=== PATIENT | female | born 1955 | race Caucasian/White ===

== ENCOUNTER 2016-10-16 02:04 | Emergency (ER) | payer MEDICARE, MEDICAID ==
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
[2016-10-16 02:49] LABS: ABSOLUTE EOSINOPHILS # (AUTO) 0.2 10^3/uL (0.0-0.6); ABSOLUTE LYMPHOCYTES (AUTO) 2.7 10^3/uL (0.5-4.7); ABSOLUTE MONOCYTES (AUTO) 0.6 10^3/uL (0.1-1.4); ABSOLUTE NEUT (AUTO) 5.2 10^3/uL (1.7-8.2); BASOPHILS % (AUTO) 0.5 % (0-2); EOSINOPHILS % (AUTO) 2.2 % (0-6); HEMATOCRIT 32.9 % (36.0-47.0); HEMOGLOBIN 11.3 g/dL (12.0-15.5); LYMPHOCYTES % (AUTO) 31.1 % (13-45); MEAN CORPUSCULAR HEMOGLOBIN 29.5 pg (27.0-33.4); MEAN CORPUSCULAR HGB CONC 34.2 g/dL (32.0-36.0); MEAN CORPUSCULAR VOLUME 86 fl (80-97); MONOCYTES % (AUTO) 6.8 % (3-13); RED BLOOD COUNT 3.83 10^6/uL (3.72-5.28); RED CELL DISTRIBUTION WIDTH 14.1 % (11.5-14.0); SEGMENTED NEUTROPHILS % (AUTO) 59.4 % (42-78); WHITE BLOOD COUNT 8.8 10^3/uL (4.0-10.5)
[2016-10-16 03:03] LABS: ALANINE AMINOTRANSFERASE 41 U/L (9-52); ALBUMIN 3.6 g/dL (3.5-5.0); ALKALINE PHOSPHATASE 82 U/L (38-126); ANION GAP 13 (5-19); ASPARTATE AMINO TRANSFERASE 43 U/L (14-36); BILIRUBIN,TOTAL 0.3 mg/dL (0.2-1.3); BLOOD UREA NITROGEN 12 mg/dL (7-20); CALCIUM 9.1 mg/dL (8.4-10.2); CARBON DIOXIDE 27 mmol/L (22-30); CHLORIDE 101 mmol/L (98-107); CREATININE RESULT 1.16 mg/dL (0.52-1.25); GLUCOSE 90 mg/dL (75-110); POTASSIUM 4.1 mmol/L (3.6-5.0); SODIUM 140.7 mmol/L (137-145); TOTAL PROTEIN 6.4 g/dL (6.3-8.2)
[2016-10-16 03:15] LABS: APPEARANCE,URINE CLEAR; BILIRUBIN,URINE NEGATIVE (NEGATIVE); GLUCOSE, URINE NEGATIVE (NEGATIVE); KETONES,URINE NEGATIVE (NEGATIVE); LEUKOCYTE ESTERASE,URINE NEGATIVE (NEGATIVE); NITRITE,URINE NEGATIVE (NEGATIVE); PROTEIN,URINE NEGATIVE (NEGATIVE); URINE SPECIFIC GRAVITY 1.006; UROBILINOGEN,URINE NEGATIVE mg/dL (<2.0)
[2016-10-16 03:20] LABS: ALCOHOL < 10 mg/dL (NONE DETECTED)
[2016-10-16 03:22] LABS: URINE BARBITURATES SCREEN NEGATIVE; URINE METHADONE SCREEN NEGATIVE; URINE PHENCYCLIDINE SCREEN NEGATIVE
[2016-10-16] MEDS ORDERED: HALOPERIDOL LACTATE INJ 5 MG/1 ML VIAL IM ONE (10:06)
--- NOTE | 2016-10-16 10:06 | ER Document Report ---
Doctor's Note Notes: 10/16/16 10:04 Rounds: Chart reviewed and patient interviewed. Patient is being evaluated for confusion and apparent hallucinations. Patient says she is a patient at [facility] and last went there a couple weeks ago. Not sure of she's been taking her mental health medications. Patient is anxious, hyper, flight of ideas. Patient is being started on Haldol, initially 10 mg IM. Vital signs are all normal. Lab studies were all normal. She is medically stable for transfer or discharge. Dany Kelley M.D.
[2016-10-16] MEDS ORDERED: BENZTROPINE MESYLATE 1 MG TABLET PO SCH (10:15)
--- NOTE | 2016-10-16 13:41 | EKG REPORT ---
SEVERITY:- BORDERLINE ECG - SINUS RHYTHM BORDERLINE T ABNORMALITIES, INFERIOR LEADS : Confirmed by: Natividad Yusuf MD 16-Oct-2016 13:40:54
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
[2016-10-16 17:01] VITALS: BP 108/59
== END 2016-10-16 17:50 | disposition short-term general hospital (02) ==
LOC: ER 02:04
DX: R41.0 Disorientation, unspecified (principal); R44.3 Hallucinations, unspecified; E78.00 Pure hypercholesterolemia, unspecified; I10 Essential (primary) hypertension; E11.9 Type 2 diabetes mellitus without complications; Z90.49 Acquired absence of other specified parts of digestive tract; Z90.710 Acquired absence of both cervix and uterus
CPT/HCPCS: 93005; 99285; 96372; 36415; 80307 ×4; 85025; 80053; 81001; 70450; 93010; A9270; J1630

== ENCOUNTER 2016-10-27 08:09 | Emergency (ER) | payer MEDICARE, MEDICAID ==
[2016-10-27 10:01] LABS: ABSOLUTE LYMPHOCYTES (AUTO) 2.2 10^3/uL (0.5-4.7); ABSOLUTE MONOCYTES (AUTO) 0.7 10^3/uL (0.1-1.4); ABSOLUTE NEUT (AUTO) 6.7 10^3/uL (1.7-8.2); BASOPHILS % (AUTO) 0.4 % (0-2); HEMOGLOBIN 13.4 g/dL (12.0-15.5); HGB HCT DIFFERENCE 0.2; LYMPHOCYTES % (AUTO) 23.2 % (13-45); MEAN CORPUSCULAR HEMOGLOBIN 28.9 pg (27.0-33.4); MEAN CORPUSCULAR HGB CONC 33.5 g/dL (32.0-36.0); MEAN CORPUSCULAR VOLUME 86 fl (80-97); RED BLOOD COUNT 4.63 10^6/uL (3.72-5.28); RED CELL DISTRIBUTION WIDTH 14.1 % (11.5-14.0); SEGMENTED NEUTROPHILS % (AUTO) 69.4 % (42-78); WHITE BLOOD COUNT 9.6 10^3/uL (4.0-10.5)
[2016-10-27 10:12] LABS: APPEARANCE,URINE SLIGHTLY-CLOUDY; BILIRUBIN,URINE NEGATIVE (NEGATIVE); GLUCOSE, URINE NEGATIVE (NEGATIVE); KETONES,URINE NEGATIVE (NEGATIVE); LEUKOCYTE ESTERASE,URINE MODERATE (NEGATIVE); NITRITE,URINE NEGATIVE (NEGATIVE); PROTEIN,URINE NEGATIVE (NEGATIVE); URINE SPECIFIC GRAVITY 1.016; UROBILINOGEN,URINE NEGATIVE mg/dL (<2.0)
[2016-10-27 10:17] LABS: ALANINE AMINOTRANSFERASE 11 U/L (9-52); ALBUMIN 4.2 g/dL (3.5-5.0); ALKALINE PHOSPHATASE 83 U/L (38-126); ANION GAP 13 (5-19); ASPARTATE AMINO TRANSFERASE 14 U/L (14-36); BLOOD UREA NITROGEN 14 mg/dL (7-20); CALCIUM 10.2 mg/dL (8.4-10.2); CARBON DIOXIDE 26 mmol/L (22-30); CHLORIDE 99 mmol/L (98-107); CREATININE RESULT 0.78 mg/dL (0.52-1.25); GLUCOSE 117 mg/dL (75-110); POTASSIUM 3.8 mmol/L (3.6-5.0); SODIUM 138.4 mmol/L (137-145); TOTAL PROTEIN 7.3 g/dL (6.3-8.2)
[2016-10-27] MEDS ORDERED: ONDANSETRON HCL INJ/PF 4 MG/2 ML SDV IV ONE (10:17)
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
[2016-10-27] MEDS: NORMAL SALINE 1000 ML 1,000 ML IV PRN ×2 (10:23→11:23)
[2016-10-27] MEDS ORDERED: LOPERAMIDE HCL 2 MG CAPSULE PO ONE (10:32)
[2016-10-27] MEDS ORDERED: HYDROCODONE/ACETAMINOPHEN 5-325 MG 6 TAB/DSPK PO PRN (14:45)
[2016-10-27] MEDS ORDERED: ONDANSETRON ODT 4 MG TAB (6 TAB/DSPK) PO PRN (14:45)
[2016-10-27 15:07] VITALS: BP 139/86
== END 2016-10-27 15:06 | disposition home or self-care (01) ==
LOC: ER 08:09
DX: R11.2 Nausea with vomiting, unspecified (principal); R19.7 Diarrhea, unspecified; R10.33 Periumbilical pain; E11.9 Type 2 diabetes mellitus without complications; I10 Essential (primary) hypertension; Z87.19 Personal history of other diseases of the digestive system; Z88.5 Allergy status to narcotic agent; Z88.1 Allergy status to other antibiotic agents; Z88.8 Allergy status to other drugs, medicaments and biological substances; Z90.49 Acquired absence of other specified parts of digestive tract
CPT/HCPCS: 99284; 96361; 96374; 36415; 83690; 85025; 80053; 81001; A9270 ×3; J2405; J7030

== ENCOUNTER 2016-11-10 12:42 | Inpatient (IN) | payer MEDICARE, MEDICAID ==
[2016-11-10] MEDS ORDERED: NALOXONE HCL INJ/PF 0.4 MG/1 ML SDV ONE (13:05)
[2016-11-10 13:14] LABS: ABSOLUTE EOSINOPHILS # (AUTO) 0.1 10^3/uL (0.0-0.6); ABSOLUTE LYMPHOCYTES (AUTO) 3.1 10^3/uL (0.5-4.7); ABSOLUTE MONOCYTES (AUTO) 0.4 10^3/uL (0.1-1.4); BASOPHILS % (AUTO) 0.4 % (0-2); EOSINOPHILS % (AUTO) 2.2 % (0-6); HEMATOCRIT 37.2 % (36.0-47.0); HEMOGLOBIN 12.7 g/dL (12.0-15.5); HGB HCT DIFFERENCE 0.9; MEAN CORPUSCULAR VOLUME 88 fl (80-97); MONOCYTES % (AUTO) 6.2 % (3-13); RED BLOOD COUNT 4.22 10^6/uL (3.72-5.28); RED CELL DISTRIBUTION WIDTH 14.5 % (11.5-14.0); SEGMENTED NEUTROPHILS % (AUTO) 45.2 % (42-78); WHITE BLOOD COUNT 6.7 10^3/uL (4.0-10.5)
[2016-11-10] MEDS ORDERED: NALOXONE HCL INJ 2 MG/2 ML DISP.SYRIN ONE (13:17)
[2016-11-10 13:30] LABS: ALANINE AMINOTRANSFERASE 27 U/L (9-52); ALBUMIN 3.4 g/dL (3.5-5.0); ALKALINE PHOSPHATASE 90 U/L (38-126); ANION GAP 7 (5-19); ASPARTATE AMINO TRANSFERASE 18 U/L (14-36); BILIRUBIN,TOTAL 0.4 mg/dL (0.2-1.3); BLOOD UREA NITROGEN 8 mg/dL (7-20); CALCIUM 9.1 mg/dL (8.4-10.2); CARBON DIOXIDE 31 mmol/L (22-30); CHLORIDE 100 mmol/L (98-107); CREATININE RESULT 0.94 mg/dL (0.52-1.25); GLUCOSE 106 mg/dL (75-110); POTASSIUM 4.4 mmol/L (3.6-5.0); SODIUM 138.3 mmol/L (137-145); TOTAL PROTEIN 6.4 g/dL (6.3-8.2)
[2016-11-10 13:31] LABS: APPEARANCE,URINE CLEAR; BILIRUBIN,URINE NEGATIVE (NEGATIVE); GLUCOSE, URINE NEGATIVE (NEGATIVE); KETONES,URINE NEGATIVE (NEGATIVE); LEUKOCYTE ESTERASE,URINE NEGATIVE (NEGATIVE); NITRITE,URINE NEGATIVE (NEGATIVE); PROTEIN,URINE NEGATIVE (NEGATIVE); URINE SPECIFIC GRAVITY 1.008; UROBILINOGEN,URINE NEGATIVE mg/dL (<2.0)
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
[2016-11-10 13:50] LABS: URINE BARBITURATES SCREEN NEGATIVE; URINE METHADONE SCREEN NEGATIVE; URINE OPIATES LOW UNCONFIRMED POSITIVE; URINE PHENCYCLIDINE SCREEN NEGATIVE
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
[2016-11-10] MEDS ORDERED: 1/2 NORMAL SALINE 1,000 ML IV PRN (18:09)
[2016-11-10] MEDS ORDERED: DEXTROSE 40% GEL 15 GM TUBE PO PRN ×2 (18:19)
[2016-11-10] MEDS ORDERED: DEXTROSE 50%-WATER 25 GM/50 ML DISP.SYRIN IV PRN ×2 (18:19)
[2016-11-10] MEDS ORDERED: INSULIN REG, HUMAN 100 UNIT/ML 3 ML VIAL (PYX) SUBCUT PRN (18:19)
[2016-11-10] MEDS ORDERED: GLUCAGON,HUMAN RECOMB 1 MG INJ IM PRN (18:19)
[2016-11-10] MEDS ORDERED: FAMOTIDINE INJ/PF 20 MG/2 ML SDV IV SCH (22:00)
[2016-11-10] MEDS ORDERED: LEVETIRACETAM 1000 MG/NACL-ISO 1,000 MG/100 ML RTUPB IV SCH (22:00)
[2016-11-11 01:48] VITALS: BP 109/58
[2016-11-11] MEDS ORDERED: ENOXAPARIN SODIUM INJ 40 MG/0.4 ML DISP.SYRIN SUBCUT SCH (08:00)
--- NOTE | 2016-11-11 08:14 | EKG REPORT ---
SEVERITY:- NORMAL ECG - SINUS RHYTHM : Confirmed by: Johnathon Smith MD 11-Nov-2016 08:13:30
--- NOTE | 2017-01-06 06:23 | HX & PHYSICAL/DISCHG SUMMARY E ---
History and Physical/Discharge Summary NAME: TOÑITO KUMAR : 1955 AGE: 61Y ADMITTED: 11/10/2016 DISCHARGED: 11/11/2016 HISTORY: She came in on November 10 and left AMA early on November 11, before I could see her, when she woke up from altered mental status, presumably from an overdose of a pain medicine. Since I did not see her, I cannot give a complete note. Please refer to the Emergency Room note for details. DICTATING PHYSICIAN: ARTURO YOUSIF M.D. [id number] PHY#: [id number] ID: [id number] JOB#: [id number] ACCT: [id number] cc:ARTURO YOUSIF M.D. >
== END 2016-11-11 03:00 | disposition left against medical advice (07) | DRG 918 ==
LOC: ER 12:42 → EH 16:18 → UNDOADMIN 16:18 → EH 18:09
PROVIDERS: ADMIT Emergency Medicine; ATTEND Emergency Medicine
DX: T50.901A Poisoning by unspecified drugs, medicaments and biological substances, accidental (unintentional), initial encounter (principal); Y92.199 Unspecified place in other specified residential institution as the place of occurrence of the external cause; I10 Essential (primary) hypertension; E78.00 Pure hypercholesterolemia, unspecified; E11.9 Type 2 diabetes mellitus without complications; K21.9 Gastro-esophageal reflux disease without esophagitis; Z62.810 Personal history of physical and sexual abuse in childhood; F43.10 Post-traumatic stress disorder, unspecified; Z88.8 Allergy status to other drugs, medicaments and biological substances; Z82.49 Family history of ischemic heart disease and other diseases of the circulatory system; Z80.9 Family history of malignant neoplasm, unspecified; Z90.49 Acquired absence of other specified parts of digestive tract
CPT/HCPCS: 36415; 70450; 80053; 80307; 81001; 82962; 83605; 84484; 85025; 93005; 93010; 96374; 99291; J1953; J2310; J3490; S0028

== ENCOUNTER 2016-11-22 14:21 | Emergency (ER) | payer MEDICARE, MEDICAID ==
[2016-11-22] MEDS ORDERED: NAPROXEN 250 MG TABLET PO ONE (14:53)
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
[2016-11-22 17:55] VITALS: BP 138/72
== END 2016-11-22 17:47 | disposition home or self-care (01) ==
LOC: ER 14:21
DX: S73.102A Unspecified sprain of left hip, initial encounter (principal); M54.5 Low back pain; M25.552 Pain in left hip; W01.0XXA Fall on same level from slipping, tripping and stumbling without subsequent striking against object, initial encounter; I10 Essential (primary) hypertension; E11.9 Type 2 diabetes mellitus without complications; F17.200 Nicotine dependence, unspecified, uncomplicated
CPT/HCPCS: 99283; 73502; 72110; A9270

== ENCOUNTER 2016-12-01 20:42 | Emergency (ER) | payer MEDICARE, MEDICAID ==
[2016-12-01] MEDS ORDERED: NORMAL SALINE 1000 ML 1,000 ML IV ONE (21:41)
[2016-12-01] MEDS ORDERED: MORPHINE SULFATE 10 MG/ML INJ IV ONE ×2 (21:41→23:12)
[2016-12-01] MEDS ORDERED: ONDANSETRON HCL INJ/PF 4 MG/2 ML SDV IV ONE (21:41)
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
[2016-12-01 22:35] LABS: ALANINE AMINOTRANSFERASE 14 U/L (9-52); ALBUMIN 4.5 g/dL (3.5-5.0); ALKALINE PHOSPHATASE 97 U/L (38-126); ANION GAP 12 (5-19); ASPARTATE AMINO TRANSFERASE 14 U/L (14-36); BILIRUBIN,TOTAL 0.8 mg/dL (0.2-1.3); BLOOD UREA NITROGEN 5 mg/dL (7-20); CALCIUM 10.2 mg/dL (8.4-10.2); CARBON DIOXIDE 29 mmol/L (22-30); CHLORIDE 94 mmol/L (98-107); CREATININE RESULT 0.72 mg/dL (0.52-1.25); GLUCOSE 108 mg/dL (75-110); LIPASE 19.3 U/L (23-300); POTASSIUM 3.6 mmol/L (3.6-5.0); TOTAL PROTEIN 7.3 g/dL (6.3-8.2)
[2016-12-01 23:00] LABS: APPEARANCE,URINE CLEAR; BILIRUBIN,URINE NEGATIVE (NEGATIVE); GLUCOSE, URINE NEGATIVE (NEGATIVE); KETONES,URINE NEGATIVE (NEGATIVE); LEUKOCYTE ESTERASE,URINE NEGATIVE (NEGATIVE); NITRITE,URINE NEGATIVE (NEGATIVE); PROTEIN,URINE NEGATIVE (NEGATIVE); URINE SPECIFIC GRAVITY 1.002; UROBILINOGEN,URINE NEGATIVE mg/dL (<2.0)
[2016-12-01 23:43] LABS: ABSOLUTE MONOCYTES (AUTO) 0.7 10^3/uL (0.1-1.4); EOSINOPHILS % (AUTO) 0.3 % (0-6)
[2016-12-01 23:52] LABS: ABSOLUTE LYMPHOCYTES (AUTO) 3.6 10^3/uL (0.5-4.7); ABSOLUTE NEUT (AUTO) 5.6 10^3/uL (1.7-8.2); BASOPHILS % (AUTO) 0.3 % (0-2); HEMATOCRIT 37.7 % (36.0-47.0); HEMOGLOBIN 13.2 g/dL (12.0-15.5); HGB HCT DIFFERENCE 1.9; MEAN CORPUSCULAR HEMOGLOBIN 29.5 pg (27.0-33.4); MONOCYTES % (AUTO) 7.1 % (3-13); RED BLOOD COUNT 4.48 10^6/uL (3.72-5.28); RED CELL DISTRIBUTION WIDTH 13.8 % (11.5-14.0); SEGMENTED NEUTROPHILS % (AUTO) 56.3 % (42-78); WHITE BLOOD COUNT 9.9 10^3/uL (4.0-10.5)
[2016-12-01 23:53] LABS: MEAN CORPUSCULAR VOLUME 84 fl (80-97)
[2016-12-02] MEDS ORDERED: HYDROMORPHONE HCL INJ/PF 2 MG/ML AMPULE IV ONE (01:16)
[2016-12-02 02:05] VITALS: BP 177/90
[2016-12-02] MEDS ORDERED: HYDROCODONE/ACETAMINOPHEN 5-325 MG 6 TAB/DSPK PO PRN (02:32)
== END 2016-12-02 02:44 | disposition home or self-care (01) ==
LOC: ER 20:42
DX: R10.84 Generalized abdominal pain (principal); R10.9 Unspecified abdominal pain; R11.0 Nausea; E11.9 Type 2 diabetes mellitus without complications; I10 Essential (primary) hypertension; Z90.49 Acquired absence of other specified parts of digestive tract; Z98.890 Other specified postprocedural states; Z88.5 Allergy status to narcotic agent; Z88.1 Allergy status to other antibiotic agents; Z88.8 Allergy status to other drugs, medicaments and biological substances; Z87.19 Personal history of other diseases of the digestive system; Z90.710 Acquired absence of both cervix and uterus
CPT/HCPCS: 96376; 99284; 96361; 96374; 96375; 36415; 83690; 85025; 80053; 81001; 74177; J2270; J1170; J2405; J7030; A9270

== ENCOUNTER 2017-01-01 23:49 | Emergency (ER) | payer MEDICARE, OTHER ==
[2017-01-02 00:41] LABS: ABSOLUTE EOSINOPHILS # (AUTO) 0.1 10^3/uL (0.0-0.6); ABSOLUTE LYMPHOCYTES (AUTO) 2.5 10^3/uL (0.5-4.7); ABSOLUTE MONOCYTES (AUTO) 0.7 10^3/uL (0.1-1.4); ABSOLUTE NEUT (AUTO) 11.8 10^3/uL (1.7-8.2); BASOPHILS % (AUTO) 0.3 % (0-2); EOSINOPHILS % (AUTO) 0.5 % (0-6); HEMATOCRIT 36.6 % (36.0-47.0); HEMOGLOBIN 12.4 g/dL (12.0-15.5); HGB HCT DIFFERENCE 0.6; LYMPHOCYTES % (AUTO) 16.7 % (13-45); MEAN CORPUSCULAR HEMOGLOBIN 29.3 pg (27.0-33.4); MEAN CORPUSCULAR VOLUME 86 fl (80-97); MONOCYTES % (AUTO) 4.5 % (3-13); RED BLOOD COUNT 4.24 10^6/uL (3.72-5.28); RED CELL DISTRIBUTION WIDTH 14.3 % (11.5-14.0); WHITE BLOOD COUNT 15.2 10^3/uL (4.0-10.5)
[2017-01-02] MEDS ORDERED: NALOXONE HCL INJ 2 MG/2 ML DISP.SYRIN ONE (00:50)
[2017-01-02 01:01] LABS: ALANINE AMINOTRANSFERASE 27 U/L (9-52); ALBUMIN 3.8 g/dL (3.5-5.0); ALKALINE PHOSPHATASE 99 U/L (38-126); ANION GAP 14 (5-19); ASPARTATE AMINO TRANSFERASE 38 U/L (14-36); BILIRUBIN,DIRECT 0.3 mg/dL (0.0-0.4); BILIRUBIN,TOTAL 1.6 mg/dL (0.2-1.3); BLOOD UREA NITROGEN 22 mg/dL (7-20); CALCIUM 9.2 mg/dL (8.4-10.2); CARBON DIOXIDE 24 mmol/L (22-30); CHLORIDE 97 mmol/L (98-107); CREATININE RESULT 1.64 mg/dL (0.52-1.25); GLUCOSE 101 mg/dL (75-110); POTASSIUM 4.6 mmol/L (3.6-5.0); SODIUM 134.6 mmol/L (137-145); TOTAL PROTEIN 6.7 g/dL (6.3-8.2)
[2017-01-02 01:02] LABS: ALCOHOL < 10 mg/dL (NONE DETECTED)
[2017-01-02 01:05] LABS: APPEARANCE,URINE CLEAR; BILIRUBIN,URINE NEGATIVE (NEGATIVE); GLUCOSE, URINE NEGATIVE (NEGATIVE); KETONES,URINE NEGATIVE (NEGATIVE); LEUKOCYTE ESTERASE,URINE NEGATIVE (NEGATIVE); NITRITE,URINE NEGATIVE (NEGATIVE); PROTEIN,URINE NEGATIVE (NEGATIVE); URINE SPECIFIC GRAVITY 1.004; UROBILINOGEN,URINE NEGATIVE mg/dL (<2.0)
[2017-01-02 01:18] LABS: URINE BARBITURATES SCREEN NEGATIVE; URINE METHADONE SCREEN NEGATIVE; URINE OPIATES LOW UNCONFIRMED POSITIVE; URINE PHENCYCLIDINE SCREEN NEGATIVE
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
--- NOTE | 2017-01-02 08:16 | EKG REPORT ---
SEVERITY:- NORMAL ECG - SINUS RHYTHM : Confirmed by: Norris Hooker 02-Jan-2017 08:15:23
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
--- NOTE | 2017-01-02 10:14 | ER Document Report ---
Doctor's Note Notes: 01/02/17 10:14 Rounds: Chart reviewed and patient interviewed. Vital signs are normal. Lab studies were all essentially unremarkable except for her white count of 15,200. That does not appear to be of any clinical significance as the patient has no signs or symptoms of infection. Her urinalysis is negative. Drug screen was positive for opiates. Patient appears to be medically stable for transfer or discharge. Mental health has assessed the patient feels she can be discharged for follow-up at her usual mental health provider, [facility]. Dany Kelley M.D.
[2017-01-02 10:22] VITALS: BP 107/45
== END 2017-01-02 10:52 | disposition home or self-care (01) ==
LOC: ER 23:49
DX: F31.9 Bipolar disorder, unspecified (principal); M54.9 Dorsalgia, unspecified; G89.29 Other chronic pain; E11.9 Type 2 diabetes mellitus without complications; I10 Essential (primary) hypertension; Z79.891 Long term (current) use of opiate analgesic; Z79.899 Other long term (current) drug therapy; Z88.8 Allergy status to other drugs, medicaments and biological substances; Z88.5 Allergy status to narcotic agent; Z88.1 Allergy status to other antibiotic agents
CPT/HCPCS: 36415; 80053; 80307; 81001; 84703; 85025; 93005; 93010; 99285

== ENCOUNTER 2017-01-21 15:19 | Emergency (ER) | payer MEDICARE, MEDICAID ==
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
[2017-01-21 16:33] LABS: ABSOLUTE LYMPHOCYTES (AUTO) 2.3 10^3/uL (0.5-4.7); ABSOLUTE MONOCYTES (AUTO) 0.4 10^3/uL (0.1-1.4); ABSOLUTE NEUT (AUTO) 4.8 10^3/uL (1.7-8.2); BASOPHILS % (AUTO) 0.6 % (0-2); EOSINOPHILS % (AUTO) 0.3 % (0-6); HEMOGLOBIN 13.2 g/dL (12.0-15.5); HGB HCT DIFFERENCE 1.6; LYMPHOCYTES % (AUTO) 29.9 % (13-45); MEAN CORPUSCULAR HEMOGLOBIN 30.1 pg (27.0-33.4); MEAN CORPUSCULAR HGB CONC 34.8 g/dL (32.0-36.0); MEAN CORPUSCULAR VOLUME 87 fl (80-97); MONOCYTES % (AUTO) 5.2 % (3-13); RED BLOOD COUNT 4.39 10^6/uL (3.72-5.28); RED CELL DISTRIBUTION WIDTH 14.6 % (11.5-14.0); WHITE BLOOD COUNT 7.5 10^3/uL (4.0-10.5)
[2017-01-21 16:38] LABS: APPEARANCE,URINE CLEAR; BILIRUBIN,URINE NEGATIVE (NEGATIVE); GLUCOSE, URINE NEGATIVE (NEGATIVE); KETONES,URINE NEGATIVE (NEGATIVE); LEUKOCYTE ESTERASE,URINE TRACE (NEGATIVE); NITRITE,URINE NEGATIVE (NEGATIVE); PROTEIN,URINE NEGATIVE (NEGATIVE); URINE SPECIFIC GRAVITY 1.009; UROBILINOGEN,URINE NEGATIVE mg/dL (<2.0)
[2017-01-21 16:51] LABS: ALANINE AMINOTRANSFERASE 26 U/L (9-52); ALBUMIN 4.5 g/dL (3.5-5.0); ALKALINE PHOSPHATASE 91 U/L (38-126); ANION GAP 14 (5-19); ASPARTATE AMINO TRANSFERASE 19 U/L (14-36); BILIRUBIN,DIRECT 0.2 mg/dL (0.0-0.4); BILIRUBIN,TOTAL 0.5 mg/dL (0.2-1.3); BLOOD UREA NITROGEN 13 mg/dL (7-20); CALCIUM 10.2 mg/dL (8.4-10.2); CARBON DIOXIDE 26 mmol/L (22-30); CHLORIDE 101 mmol/L (98-107); CREATININE RESULT 0.76 mg/dL (0.52-1.25); GLUCOSE 111 mg/dL (75-110); LIPASE 36.8 U/L (23-300); POTASSIUM 4.5 mmol/L (3.6-5.0); SODIUM 140.9 mmol/L (137-145); TOTAL PROTEIN 7.5 g/dL (6.3-8.2)
[2017-01-21] MEDS ORDERED: OXYCODONE HCL IR 5 MG TABLET PO ONE (18:54)
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
[2017-01-21 20:23] VITALS: BP 171/100
== END 2017-01-21 20:28 | disposition home or self-care (01) ==
LOC: ER 15:19
DX: K58.0 Irritable bowel syndrome with diarrhea (principal); L01.00 Impetigo, unspecified; S60.413A Abrasion of left middle finger, initial encounter; W19.XXXA Unspecified fall, initial encounter; M79.641 Pain in right hand; E11.9 Type 2 diabetes mellitus without complications; I10 Essential (primary) hypertension; Z88.5 Allergy status to narcotic agent; Z88.8 Allergy status to other drugs, medicaments and biological substances; Z88.1 Allergy status to other antibiotic agents; F17.200 Nicotine dependence, unspecified, uncomplicated; Z90.49 Acquired absence of other specified parts of digestive tract
CPT/HCPCS: 99284; 36415; 87086; 83690; 85025; 87088; 80053; 81001; 87186; 73120; A9270

== ENCOUNTER 2017-06-20 20:40 | Emergency (ER) | payer MEDICARE, MEDICAID ==
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
[2017-06-20 23:13] LABS: ABSOLUTE BASOPHILS # (AUTO) 0.1 10^3/uL (0.0-0.2); ABSOLUTE EOSINOPHILS # (AUTO) 0.1 10^3/uL (0.0-0.6); ABSOLUTE MONOCYTES (AUTO) 0.8 10^3/uL (0.1-1.4); ABSOLUTE NEUT (AUTO) 6.3 10^3/uL (1.7-8.2); BASOPHILS % (AUTO) 0.9 % (0-2); EOSINOPHILS % (AUTO) 0.6 % (0-6); HEMATOCRIT 36.4 % (36.0-47.0); HGB HCT DIFFERENCE 2.6; LYMPHOCYTES % (AUTO) 35.8 % (13-45); MEAN CORPUSCULAR HEMOGLOBIN 31.3 pg (27.0-33.4); MEAN CORPUSCULAR HGB CONC 35.7 g/dL (32.0-36.0); MEAN CORPUSCULAR VOLUME 88 fl (80-97); MONOCYTES % (AUTO) 6.9 % (3-13); RED BLOOD COUNT 4.15 10^6/uL (3.72-5.28); RED CELL DISTRIBUTION WIDTH 13.7 % (11.5-14.0); SEGMENTED NEUTROPHILS % (AUTO) 55.8 % (42-78); WHITE BLOOD COUNT 11.2 10^3/uL (4.0-10.5)
[2017-06-20 23:24] LABS: ALANINE AMINOTRANSFERASE 43 U/L (9-52); ALBUMIN 4.2 g/dL (3.5-5.0); ALKALINE PHOSPHATASE 68 U/L (38-126); ANION GAP 10 (5-19); ASPARTATE AMINO TRANSFERASE 113 U/L (14-36); BILIRUBIN,DIRECT 0.4 mg/dL (0.0-0.4); BILIRUBIN,TOTAL 0.9 mg/dL (0.2-1.3); BLOOD UREA NITROGEN 16 mg/dL (7-20); CALCIUM 9.2 mg/dL (8.4-10.2); CARBON DIOXIDE 24 mmol/L (22-30); CHLORIDE 98 mmol/L (98-107); CREATININE RESULT 0.81 mg/dL (0.52-1.25); GLUCOSE 75 mg/dL (75-110); SODIUM 132.3 mmol/L (137-145); TOTAL PROTEIN 6.9 g/dL (6.3-8.2)
[2017-06-20 23:25] LABS: ALCOHOL < 10 mg/dL (NONE DETECTED)
[2017-06-21 03:45] LABS: APPEARANCE,URINE CLEAR; BILIRUBIN,URINE NEGATIVE (NEGATIVE); GLUCOSE, URINE NEGATIVE (NEGATIVE); KETONES,URINE NEGATIVE (NEGATIVE); LEUKOCYTE ESTERASE,URINE NEGATIVE (NEGATIVE); NITRITE,URINE NEGATIVE (NEGATIVE); PROTEIN,URINE NEGATIVE (NEGATIVE); URINE SPECIFIC GRAVITY 1.011; UROBILINOGEN,URINE NEGATIVE mg/dL (<2.0)
[2017-06-21 03:59] LABS: URINE BARBITURATES SCREEN NEGATIVE; URINE METHADONE SCREEN NEGATIVE; URINE OPIATES LOW NEGATIVE; URINE PHENCYCLIDINE SCREEN NEGATIVE
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
--- NOTE | 2017-06-21 09:47 | ER Document Report ---
Doctor's Note Notes: 06/21/17 09:45 Medical rounds: Chart reviewed and patient interviewed briefly. Vital signs are normal. Laboratory values are satisfactory. Patient verbalizes no somatic complaints. She is alert, oriented, and cooperative. She has been evaluated by psych and is cleared for discharge to outpatient follow-up. She is medically stable.
[2017-06-21 10:23] VITALS: BP 146/92
--- NOTE | 2017-06-21 11:50 | EKG REPORT ---
SEVERITY:- NORMAL ECG - SINUS RHYTHM : Confirmed by: Norris Hooker 21-Jun-2017 11:49:24
== END 2017-06-21 10:49 | disposition home or self-care (01) ==
LOC: ER 20:40
DX: R41.0 Disorientation, unspecified (principal); F29 Unspecified psychosis not due to a substance or known physiological condition; Z79.899 Other long term (current) drug therapy
CPT/HCPCS: 36415; 80053; 80307; 81001; 85025; 93005; 93010; 99284

== ENCOUNTER 2018-01-06 05:57 | Day surgery (SDC) | payer MEDICARE, MEDICAID ==
--- NOTE | 2017-12-30 15:02 | RADIOLOGY REPORT (SQ) ---
EXAM DESCRIPTION: CHEST PA/LATERAL COMPLETED DATE/TIME: 12/30/2017 2:16 pm REASON FOR STUDY: PRE OP COMPARISON: None. EXAM PARAMETERS: NUMBER OF VIEWS: two views TECHNIQUE: Digital Frontal and Lateral radiographic views of the chest acquired. RADIATION DOSE: NA LIMITATIONS: none FINDINGS: LUNGS AND PLEURA: No opacities, masses or pneumothorax. No pleural effusion. MEDIASTINUM AND HILAR STRUCTURES: No masses or contour abnormalities. HEART AND VASCULAR STRUCTURES: Heart normal size. No evidence for failure. BONES: No acute findings. HARDWARE: None in the chest. OTHER: No other significant finding. IMPRESSION: NO SIGNIFICANT RADIOGRAPHIC FINDING IN THE CHEST. TECHNICAL DOCUMENTATION: JOB ID: [id number] [employer]- All Rights Reserved Reading location - IP/workstation name: [email or web address]
[2017-12-30 15:16] LABS: APPEARANCE,URINE CLEAR; BILIRUBIN,URINE NEGATIVE (NEGATIVE); COLOR,URINE YELLOW; GLUCOSE, URINE NEGATIVE (NEGATIVE); KETONES,URINE NEGATIVE (NEGATIVE); LEUKOCYTE ESTERASE,URINE TRACE (NEGATIVE); NITRITE,URINE NEGATIVE (NEGATIVE); PROTEIN,URINE NEGATIVE (NEGATIVE); URINE SPECIFIC GRAVITY 1.012; UROBILINOGEN,URINE NEGATIVE mg/dL (<2.0)
[2017-12-30 15:38] LABS: ANION GAP 11 (5-19); BLOOD UREA NITROGEN 16 mg/dL (7-20); CALCIUM 9.9 mg/dL (8.4-10.2); CARBON DIOXIDE 30 mmol/L (22-30); CHLORIDE 95 mmol/L (98-107); GLUCOSE 102 mg/dL (75-110); POTASSIUM 4.6 mmol/L (3.6-5.0); SODIUM 136.4 mmol/L (137-145)
[2017-12-30 15:42] LABS: ABSOLUTE EOSINOPHILS # (AUTO) 0.1 10^3/uL (0.0-0.6); ABSOLUTE LYMPHOCYTES (AUTO) 3.4 10^3/uL (0.5-4.7); ABSOLUTE MONOCYTES (AUTO) 0.5 10^3/uL (0.1-1.4); BASOPHILS % (AUTO) 0.5 % (0-2); EOSINOPHILS % (AUTO) 0.7 % (0-6); HEMATOCRIT 40.7 % (36.0-47.0); HEMOGLOBIN 14.3 g/dL (12.0-15.5); LYMPHOCYTES % (AUTO) 37.6 % (13-45); MEAN CORPUSCULAR HEMOGLOBIN 30.6 pg (27.0-33.4); MEAN CORPUSCULAR HGB CONC 35.1 g/dL (32.0-36.0); MEAN CORPUSCULAR VOLUME 87 fl (80-97); MONOCYTES % (AUTO) 5.1 % (3-13); PLATELET COUNT 393 10^3/uL (150-450); RED BLOOD COUNT 4.67 10^6/uL (3.72-5.28); RED CELL DISTRIBUTION WIDTH 13.2 % (11.5-14.0); SEGMENTED NEUTROPHILS % (AUTO) 56.1 % (42-78); TOTAL CELLS COUNTED % (AUTO) 100 %; WHITE BLOOD COUNT 8.9 10^3/uL (4.0-10.5)
--- NOTE | 2017-12-30 17:23 | EKG REPORT ---
SEVERITY:- NORMAL ECG - SINUS RHYTHM : Confirmed by: Johnathon Smith MD 30-Dec-2017 17:22:19
[~2018-01-06 05:57] MED LIST: BUPIVACAINE HCL 0.5 % INJ/PF 30 ML SDV ONE; CEFAZOLIN SODIUM 2 GM in NORMAL SALINE 100 ML IV PRN; EPINEPHRINE INJ/PF 1 MG/1 ML AMPULE ONE
[2018-01-06] MEDS ORDERED: FENTANYL CITRATE INJ/PF 100 MCG/2 ML AMPUL ONE ×4 (07:24→08:57)
[2018-01-06] MEDS ORDERED: PROPOFOL INJ 200 MG/20 ML VIAL IV ONE (07:24)
[2018-01-06] MEDS ORDERED: EPHEDRINE SULFATE INJ 50 MG/1 ML AMPULE ONE (07:24)
[2018-01-06] MEDS ORDERED: MIDAZOLAM 2 MG/2 ML INJ ONE (07:24)
[2018-01-06] MEDS ORDERED: ACETAMINOPHEN 100 ML IV ONE (07:24)
[2018-01-06] MEDS ORDERED: DIPHENHYDRAMINE HCL 50 MG/ML VIAL IV PRN (08:31)
[2018-01-06] MEDS ORDERED: ONDANSETRON HCL INJ/PF 4 MG/2 ML SDV IV PRN ×2 (08:31→09:45)
[2018-01-06] MEDS ORDERED: MEPERIDINE HCL/PF INJ 25 MG/1 ML DISP.SYRIN IV PRN (08:31)
[2018-01-06] MEDS ORDERED: PROMETHAZINE HCL INJ 25 MG/1 ML VIAL IV PRN ×2 (08:31)
[2018-01-06] MEDS ORDERED: FENTANYL CITRATE INJ/PF 100 MCG/2 ML AMPUL IV PRN ×3 (08:31)
[2018-01-06] MEDS ORDERED: DEXMEDETOMIDINE INJ 80 MCG/20 ML VIAL IV ONE (08:58)
[2018-01-06] MEDS ORDERED: METOPROLOL TARTRATE PF/INJ 5 MG/5 ML SDV IV ONE (09:19)
[2018-01-06] MEDS ORDERED: OXYCODONE-ACETAMINOPHEN 5-325 MG TABLET PO PRN (09:45)
[2018-01-06] MEDS ORDERED: MORPHINE SULFATE 10 MG/ML INJ IV PRN (09:45)
--- NOTE | 2018-01-06 09:46 | Discharge Summary ---
Discharge Summary (SDC) - Discharge Final Diagnosis: Left shoulder subacromial bursitis, AC Joint Arthopathy Date of Surgery: 01/06/18 Discharge Date: 01/06/18 Condition: Good Treatment or Instructions: Schedule Follow Up w/ Dr. Chema Arreola @ [facility] for Surgery to be seen in 10-14 days or as scheduled [place]: [place]: [place]: May remove dressing on postop day #3, keep incision covered and dry. Cryocuff to shoulder May begin pendulum exercises along w/ hand, wrist and elbow range of motion 4x per day or as tolerated. May remove sling for hygiene purposes otherwise continue it at all times. Stool softener of choice when on pain medication. Prescriptions: Oxycodone HCl/Acetaminophen [Percocet 10-325 Mg Tablet] 1 each PO Q6 PRN #40 tablet PRN Reason: Referrals: ARTURO YOUSIF MD [Primary Care Provider] - Discharge Diet: As Tolerated Respiratory Treatments at Home: Deep Breathing/Coughing, Incentive Spirometer Discharge Activity: No Lifting/Push/Pulling Report the Following to Your Physician Immediately: Fever over 101 Degrees, Unusual Bleeding, Redness, Swelling, Warmth, Increased Soreness
--- NOTE | 2018-01-06 09:51 | Operative Report ---
Operative Report DATE OF SURGERY: 01/06/18 PREOPERATIVE DIAGNOSIS: Left shoulder subacromial bursitis, impingement. AC joint arthritis. Degenerative SLAP tear POSTOPERATIVE DIAGNOSIS: Same OPERATION: Left shoulder arthroscopy with subacromial decompression, acromioplasty, distal clavicle excision with open subpectoralis biceps tenodesis SURGEON: KARY WONG ANESTHESIA: GA COMPLICATIONS: None ESTIMATED BLOOD LOSS: Minimal PROCEDURE: Indication for above procedure: 62-year-old female with history of right shoulder pain. We attempted conservative measures including anti-inflammatories, injections and activity modification without resolution of patient's symptoms. We then discussed further treatment options including operative versus nonoperative intervention. Risks and benefits were explained patient verbalized understanding consented for the procedure. Procedure In Detail: Patient was seen and evaluated in the preoperative holding area. The LEFT upper extremity was initialized and marked. Patient received 2g of Ancef IV for bacterial prophylaxis. Patient was taken back to the operative room where transferred to the operative table and placed under general anesthesia. Once they were adequately anesthetized patient was placed in the beachchair position. Nonoperative right upper extremities carefully padded including bilateral lower extremities. Cervical spine was placed in a neutral position in well-padded. A surgical team debriefing was performed ensuring all instrumentation was available, the surgical procedure was discussed with possible concerns reviewed. The upper extremity was prepped with ChloraPrep and draped in a sterile fashion. Posterior portal was established and arthroscope introduced into the glenohumeral joint. Via triangulation a anterior portal was established. Diagnostic arthroscopy demonstrated degenerative fraying of the biceps anchor indicative of degenerative type II SLAP tear with extension into the biceps tendon. Thus a biceps tenotomy was performed to allow for later tenodesis. The remaining labrum was then carefully debrided. There is mild fraying of the undersurface of the supraspinatus but no full-thickness tear appreciated. Subscapularis was identified without disruption. No evidence of glenohumeral degenerative changes. Arthroscope was introduced into the subacromial space and lateral portal established via triangulation. Subacromial decompression was performed with bursectomy. There was evidence of a type III anterior acromial spur. The CA ligament was released but not excised and acromioplasty performed. Visualization of the rotator cuff demonstrated supraspinatus fraying but no evidence of full-thickness tear. I then turned my attention to the AC joint. Via anterior portal the AC joint was identified with evidence of degeneration. I then established a Neviser's portal and 10 mm of the distal clavicle was successfully excised. There is no evidence of clavicular impingement with adduction. At this point I proceeded with biceps tenodesis. Longitudinal skin incision was made along the inferior third of the pectoralis major. Blunt dissection was performed identifying the inferior border of the pectoralis major. Any peripheral vasculature was carefully coagulated. I then identified the tenotomized long head of the biceps which was retrieved and brought out the wound. The tendon was then secured 2 centimeters distal to the musculotendinous junction with a #2 fiber loop and the remaining diseased portion of the biceps was excised. The Arthrex biceps tenodesis button was then secured to my biceps tendon. Under direct visualization I then cleared an area along the anterior aspect of the humerus and drilled unicortically. The button was then placed into the unicortical hole and the biceps tendon was shuttled to the anterior cortex of the humerus. I then checked stability of the button confirming maximal fixation. Utilizing the free needle one limb of the remaining FiberWire was secured to the biceps providing further fixation. The elbow was then placed through range of motion to ensure appropriate tension of the biceps with flexion and extension. The wound was then copiously irrigated with normal saline. Any peripheral vasculature was carefully coagulated with Bovie cautery. Skin was closed a running subcuticular 4-0 Monocryl suture reinforced with Dermabond and Steri-Strips. Portal holes were closed with interrupted 3-0 nylon. 30 cc of 0.5% Marcaine without epinephrine was injected for postoperative pain control. Sponge counts, instrument counts, needle counts counts were correct. Patient was then awoken from anesthesia. Transferred from the operating room table to the operating room stretcher. There was no intraoperative complications patient tolerated procedure well stable to PACU. Postoperative plan: Patient will follow-up in 2 weeks at which point we will proceed with wound check. Patient will be started on physical therapy 4 weeks postoperatively.
[2018-01-06] MEDS: FENTANYL CITRATE INJ/PF 100 MCG/2 ML AMPUL ONE ×2 (10:00→10:10)
[2018-01-06] MEDS ORDERED: MORPHINE SULFATE 10 MG/ML INJ ONE (10:01)
[2018-01-06] MEDS ORDERED: MEPERIDINE HCL/PF INJ 25 MG/1 ML DISP.SYRIN ONE (10:03)
[2018-01-06 13:07] VITALS: BP 126/71
[2018-01-06] MEDS ORDERED: LIDOCAINE 2% INJ-PF (20 MG/ML) 2 ML AMPUL ONE (14:54)
[2018-01-06] MEDS ORDERED: ROCURONIUM BROMIDE INJ 50 MG/5 ML VIAL IV ONE (14:54)
[2018-01-06] MEDS ORDERED: DEXAMETHASONE SOD PHOSPHATE INJ 4 MG/1 ML VIAL ONE (14:54)
[2018-01-06] MEDS ORDERED: NEOSTIGMINE METHYLSULFATE 10 MG/10 ML VIAL ONE (14:54)
[2018-01-06] MEDS ORDERED: ONDANSETRON HCL INJ/PF 4 MG/2 ML SDV ONE (14:54)
[2018-01-06] MEDS ORDERED: GLYCOPYRROLATE INJ 0.4 MG/2 ML VIAL ONE (14:54)
[2018-01-06] MEDS ORDERED: METOCLOPRAMIDE HCL INJ/PF 10 MG/2 ML SDV ONE (14:54)
== END 2018-01-06 12:20 | disposition home or self-care (01) ==
LOC: OROUT 05:57
PROVIDERS: ATTEND Orthopaedic Surgery
PROC: 0PBB4ZZ Excision of Left Clavicle, Percutaneous Endoscopic Approach (ICD-10-PCS; 2018-01-06)
PROC: 0LM20ZZ Reattachment of Left Shoulder Tendon, Open Approach (ICD-10-PCS; 2018-01-06)
PROC: 0RBK4ZZ Excision of Left Shoulder Joint, Percutaneous Endoscopic Approach (ICD-10-PCS; principal; 2018-01-06 08:00)
DX: M75.42 Impingement syndrome of left shoulder (principal); M75.52 Bursitis of left shoulder; M19.012 Primary osteoarthritis, left shoulder; M24.812 Other specific joint derangements of left shoulder, not elsewhere classified; M25.512 Pain in left shoulder; I10 Essential (primary) hypertension; E11.9 Type 2 diabetes mellitus without complications; E78.5 Hyperlipidemia, unspecified; F17.210 Nicotine dependence, cigarettes, uncomplicated; E78.00 Pure hypercholesterolemia, unspecified; G40.909 Epilepsy, unspecified, not intractable, without status epilepticus; Z79.01 Long term (current) use of anticoagulants; Z79.899 Other long term (current) drug therapy; Z86.14 Personal history of Methicillin resistant Staphylococcus aureus infection
CPT/HCPCS: 93005; 36415; 82962; 85025; 80048; 81001; 83036; 71046; 93010; 29824; 24340; L3650; C1713; J2250; J3490 ×4; J0690; J1100; J0171; J3010; J2175; J2765; J2270; A9270; J2405; J2704; J0131; 1630

== ENCOUNTER 2018-08-02 00:17 | Emergency (ER) | payer MEDICARE, MEDICAID ==
[2018-08-02] MEDS ORDERED: HYDROCODONE/ACETAMINOPHEN 5-325 MG (6 TAB/ER DISP) PO PRN (01:04)
[2018-08-02] MEDS ORDERED: LIDOCAINE 5% (700 MG) TRANSDERMAL ADH..PATCH TP ONE (01:04)
[2018-08-02] MEDS ORDERED: NORMAL SALINE 1000 ML 1,000 ML IV ONE (01:06)
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
[2018-08-02 03:19] VITALS: BP 107/75
--- NOTE | 2018-08-02 09:54 | EKG REPORT ---
SEVERITY:- NORMAL ECG - SINUS RHYTHM : Confirmed by: Norris Hooker 02-Aug-2018 09:53:26
== END 2018-08-02 03:28 | disposition home or self-care (01) ==
LOC: ER 00:17
DX: M54.5 Low back pain (principal); W01.0XXA Fall on same level from slipping, tripping and stumbling without subsequent striking against object, initial encounter; Y92.009 Unspecified place in unspecified non-institutional (private) residence as the place of occurrence of the external cause; G89.29 Other chronic pain; Z79.899 Other long term (current) drug therapy; F17.200 Nicotine dependence, unspecified, uncomplicated; I10 Essential (primary) hypertension; E11.9 Type 2 diabetes mellitus without complications; Z88.1 Allergy status to other antibiotic agents; Z88.5 Allergy status to narcotic agent; Z88.8 Allergy status to other drugs, medicaments and biological substances; Z98.890 Other specified postprocedural states
CPT/HCPCS: 93005; 99284; 96360; 96361; 93010; J7030; A9270

== ENCOUNTER 2018-12-15 05:37 | Emergency (ER) | payer MEDICARE, MEDICAID ==
[2018-12-15 06:02] LABS: ABSOLUTE BASOPHILS # (AUTO) 0.1 10^3/uL (0.0-0.2); ABSOLUTE EOSINOPHILS # (AUTO) 0.1 10^3/uL (0.0-0.6); ABSOLUTE LYMPHOCYTES (AUTO) 2.9 10^3/uL (0.5-4.7); ABSOLUTE MONOCYTES (AUTO) 0.5 10^3/uL (0.1-1.4); ABSOLUTE NEUT (AUTO) 3.7 10^3/uL (1.7-8.2); BASOPHILS % (AUTO) 1.1 % (0-2); EOSINOPHILS % (AUTO) 1.6 % (0-6); HEMATOCRIT 39.6 % (36.0-47.0); LYMPHOCYTES % (AUTO) 39.7 % (13-45); MEAN CORPUSCULAR HEMOGLOBIN 31.3 pg (27.0-33.4); MEAN CORPUSCULAR HGB CONC 35.4 g/dL (32.0-36.0); MEAN CORPUSCULAR VOLUME 89 fl (80-97); PLATELET COUNT 363 10^3/uL (150-450); RED BLOOD COUNT 4.48 10^6/uL (3.72-5.28); RED CELL DISTRIBUTION WIDTH 13.6 % (11.5-14.0); SEGMENTED NEUTROPHILS % (AUTO) 50.6 % (42-78); TOTAL CELLS COUNTED % (AUTO) 100 %; WHITE BLOOD COUNT 7.3 10^3/uL (4.0-10.5)
[2018-12-15 06:24] LABS: ALANINE AMINOTRANSFERASE 12 U/L (9-52); ALBUMIN 4.8 g/dL (3.5-5.0); ALKALINE PHOSPHATASE 78 U/L (38-126); ANION GAP 11 (5-19); ASPARTATE AMINO TRANSFERASE 16 U/L (14-36); BILIRUBIN,DIRECT 0.3 mg/dL (0.0-0.4); BILIRUBIN,TOTAL 0.5 mg/dL (0.2-1.3); BLOOD UREA NITROGEN 13 mg/dL (7-20); CALCIUM 10.4 mg/dL (8.4-10.2); CARBON DIOXIDE 31 mmol/L (22-30); CHLORIDE 99 mmol/L (98-107); GLUCOSE 86 mg/dL (75-110); SODIUM 141.1 mmol/L (137-145); TOTAL PROTEIN 7.8 g/dL (6.3-8.2)
--- NOTE | 2018-12-15 06:26 | RADIOLOGY REPORT (SQ) ---
CLINICAL HISTORY: AMS COMPARISON: November 10 2016. TECHNIQUE: CT HEAD WITHOUT IV CONTRAST on 12/15/2018 5:47 AM CDT This exam was performed according to our departmental dose-optimization program, which includes automated exposure control, adjustment of the mA and/or kV according to patient size and/or use of iterative reconstruction technique. FINDINGS: There is no acute hemorrhage, mass effect or midline shift. Chi-white differentiation is preserved. There is no hydrocephalus. There is no significant volume loss for age. There are mild patchy hypodensities within the periventricular and subcortical white matter, consistent with microangiopathic ischemic changes. The calvarium is intact. Orbits and globes are unremarkable. The paranasal sinuses are clear. Mastoid air cells are clear. IMPRESSION: No acute intracranial findings.
[2018-12-15 07:11] LABS: APPEARANCE,URINE CLEAR; BILIRUBIN,URINE NEGATIVE (NEGATIVE); COLOR,URINE STRAW; GLUCOSE, URINE NEGATIVE (NEGATIVE); KETONES,URINE NEGATIVE (NEGATIVE); LEUKOCYTE ESTERASE,URINE MODERATE (NEGATIVE); NITRITE,URINE NEGATIVE (NEGATIVE); PROTEIN,URINE NEGATIVE (NEGATIVE); URINE SPECIFIC GRAVITY 1.003; UROBILINOGEN,URINE NEGATIVE mg/dL (<2.0)
[2018-12-15 07:27] LABS: CREATINE KINASE 66 U/L (30-135)
--- NOTE | 2018-12-15 07:27 | RADIOLOGY REPORT (SQ) ---
EXAM DESCRIPTION: XR CHEST 1 VIEW COMPLETED DATE/TME: 12/15/2018 05:48 CLINICAL HISTORY: 63 years Female, AMS COMPARISON: None. NUMBER OF VIEWS/TECHNIQUE: 1/AP FINDINGS: Adequate lung volume, clear parenchyma, normal cardiac silhouette, and intact bony thorax. IMPRESSION: No acute cardiopulmonary findings.
[2018-12-15 07:29] LABS: URINE AMPHETAMINES SCREEN NEGATIVE; URINE BARBITURATES SCREEN NEGATIVE; URINE BENZODIAZEPINES SCREEN NEGATIVE; URINE COCAINE SCREEN NEGATIVE; URINE MARIJUANA (THC) SCREEN NEGATIVE; URINE METHADONE SCREEN NEGATIVE; URINE PHENCYCLIDINE SCREEN NEGATIVE
[2018-12-15 07:30] LABS: CREATINE KINASE MB 1.46 ng/mL (<4.55)
[2018-12-15 07:31] LABS: TROPONIN I < 0.012 ng/mL
[2018-12-15 07:46] LABS: ACETAMINOPHEN < 10 ug/mL (10-30)
--- NOTE | 2018-12-15 08:41 | PSYCHOLOGICAL NOTE ---
Psych Note - Psych Note Date seen by psych provider: 12/15/18 Time seen by psych provider: 08:00 Psych Note: Reason for consult:AMS Contact Permissions: Patient is a 63 yo female presenting to the ED via EMS for AMS. Chart review shows S/O called EMS because patient was wandering around the house overnight and trying to eat boiling water. Toxicology screen is negative for all substances. Chart review shows patient has in past reported diagnoses of Bipolar Disorder and PTSD. In 10/2016 patient presented similarly and was transferred to [place]. One month later, presented with friend from [facility] with AMS and non-responsive and was admitted for suspected OD. She was positive for opiates at that time. December 2016, patient presented altered but able to request pain meds. Narx report shows patient is prescribed Oxycodone, Tramadol, and Clonazepam. She has had five prescribers in three places since 2016. 0800 Attempted to evaluate Patient is sleeping but restless aeb continues to get out of bed and oriented to self only as she responds to her name. Unable to assess mood, SI, HI, or AV/H due to patient status. Conversational speech was soft, slurred, and incoherent. Eye contact was poor. Thought processes were disorganized. Unable to assess intellectual abilities. Attention/concentration was poor while, insight, judgment, and impulse control were poor due to AMS. 1230 Attempted to evaluate Patient ambulated to the bathroom with RN assistance. Oriented to self aeb stated her full name and followed immediately by "Toilet paper. We need to get cups from the grocery". She is oriented to place stating that she is at [facility]. When asked why, she states, "mother/stepbrother/I need to come back later. She then began rambling incoherently. Unable to assess mood, SI, HI, or AV/H due to patient status. Conversational speech was soft, slurred, and incoherent. Eye contact was poor. Thought processes were disorganized. Unable to assess intellectual abilities. Attention/concentration was poor while, insight, judgment, and impulse control were poor due to AMS. 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 Billings are as follows: Impression/Plan: Patient is recommended for IVC due to risk of harm to self or others aeb patient presents with altered mental status i.e. disorganized thoughts and disoriented demonstrating impaired insight, judgment, and impulse control. Patient is a 63 yo female presenting to the ED via EMS for AMS. Chart review shows S/O called EMS because patient was wandering around the house overnight and trying to eat boiling water. Toxicology screen is negative for all substances. Chart review shows patient has in past reported diagnoses of Bipolar Disorder and PTSD. She has three prior visits in 2017 with similar presentation with one admit for OD and one transfer to [facility]. Narx report shows patient is prescribed Oxycodone, Tramadol, and Clonazepam. She has had five prescribers in three places since 2017. [address] Flores in the care and treatment of this patient and the ED physician who is in agreement with disposition and miguelito mmendation
--- NOTE | 2018-12-15 12:14 | EKG REPORT ---
SEVERITY:- NORMAL ECG - SINUS RHYTHM : Confirmed by: Johnathon Smith MD 15-Dec-2018 12:13:17
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
[2018-12-15] MEDS ORDERED: PROMETHAZINE HCL 25 MG TABLET PO PRN (23:10)
[2018-12-15] MEDS ORDERED: BUSPIRONE HCL 10 MG TABLET PO ONE (23:59)
[2018-12-15] MEDS ORDERED: TIZANIDINE HCL 4 MG TABLET PO ONE (23:59)
[2018-12-15] MEDS ORDERED: GABAPENTIN 300 MG CAPSULE PO ONE (23:59)
[2018-12-16] MEDS: GABAPENTIN 300 MG CAPSULE PO SCH ×3 (05:55→22:22)
[2018-12-16] MEDS ORDERED: LANSOPRAZOLE 15 MG TAB.RAP.DR PO SCH (06:00)
[2018-12-16] MEDS ORDERED: TIZANIDINE HCL 4 MG TABLET PO SCH (06:00)
[2018-12-16] MEDS ORDERED: BUPROPION HCL 100 MG TABLET PO SCH (08:00)
[2018-12-16] MEDS ORDERED: ZIPRASIDONE HCL 40 MG CAPSULE PO SCH ×2 (08:00→18:00)
[2018-12-16] MEDS ORDERED: CLONAZEPAM 1 MG TABLET PO SCH (10:00)
[2018-12-16] MEDS ORDERED: BUSPIRONE HCL 10 MG TABLET PO SCH ×2 (10:00→18:00)
--- NOTE | 2018-12-16 10:16 | ER Document Report ---
Doctor's Note Notes: 12/16/18 10:14 Rounds: Chart reviewed and patient interviewed. Patient has rambling thoughts and difficult to understand what she is talking about because she goes from one thing to another quickly. Has a history of bipolar disorder. Initially came to the emergency department for evaluation of the altered mental status. Also suspected of substance abuse, may be opiates. Patient's labs showed a possible UTI with moderate leukocyte esterase and 30 white cells in the urine. A C&S has been ordered. Patient says she is not having any UTI symptoms, but I think she is saying that she was treated for a UTI by Dr. Separs a few weeks ago. Vital signs are all essentially normal. Patient appears to be medically stable for transfer or discharge. Dany Kelley MD
[2018-12-16] MEDS: DIVALPROEX SODIUM 250 MG TAB.SR.24H PO SCH ×2 (13:16→18:17)
--- NOTE | 2018-12-16 14:41 | PSYCHOLOGICAL NOTE ---
Psych Note - Psych Note Date seen by psych provider: 12/16/18 Time seen by psych provider: 09:00 Psych Note: Reason for consult:AMS Contact Permissions: Patient is a 63 yo female presenting to the ED via EMS for AMS. Chart review shows S/O called EMS because patient was wandering around the house overnight and trying to eat boiling water. Toxicology screen is negative for all substances. Chart review shows patient has in past reported diagnoses of Bipolar Disorder and PTSD. In 10/2016 patient presented similarly and was transferred to [place]. One month later, presented with friend from [facility] with AMS and non-responsive and was admitted for suspected OD. Ed Alfie [phone] left message at [phone]. Room mate "DENISE" [phone] VM not set up yet. 0900 Attempted to evaluate Patient is restless aeb picking and searching her blanket for something. She reports she came here with her cats and the old was is "trapped in there". Patient ir oriented to self only and speaks word salad aeb "ex eats grit/The only time I'm really out by the garbage/I'm at the hospital-tell him I have problems. I moved away then he moved away/I'm not on drugs etc... Her speech was pressured. Eye contact was poor. Thought processes were disorganized. Unable to assess intellectual abilities. Attention/concentration was poor while, insight, judgment, and impulse control were poor due to AMS. Diagnosis: 296.80 (F31.9) Unspecified Bipolar and Related Disorder per history provided by patient, per hx R/O Dementia 292.9 (F11.99) Unspecified Opiate Related Disorder, (prescription per hx) 292.9 (F19.99) Unspecified Other Substance Related Disorder; (prescription Tramadol, per hx) 292.9 (F13.99) Unspecified Sedative Related Disorder; (prescription benzodiazepine, per hx) Medication recommendations as per psychiatric provider, Dr. Billings are as fo llows: Impression/Plan: Patient is recommended to maintain IVC due to risk of harm to self or others aeb patient presents with altered mental status i.e. disorganized thoughts and disoriented demonstrating impaired insight, judgment, and impulse control with pressured speech and psychomotor agitation and restlessness consistent with Bipolar sx's. Patient is a 63 yo female with a hx of Bipolar Disorder and PTSD presenting to the ED via EMS for AMS. Patient was started on medication to stabilize but has shown minimal improvement. Toxicology screen is negative for all substances when she came in. Head CT shows microvascular ischemic changes consistent with dementia. Plan is to seek IP psychiatric hospitalization. Consulted Dr. Flores in the care and treatment of this patient and the ED physician who is in agreement with disposition and recommendation
[2018-12-16] MEDS: PANTOPRAZOLE SODIUM 20 MG TABLET.DR PO SCH (18:18)
[2018-12-16] MEDS ORDERED: NICOTINE 21 MG/24 HR PATCH.TD24 TD ONE (18:53)
[2018-12-16] MEDS ORDERED: (PENDING PHARMACY ID) (Trazodone Hcl [Trazodone Hcl] 300 MG) PO SCH (22:00)
[2018-12-17] MEDS: GABAPENTIN 300 MG CAPSULE PO SCH (06:41)
[2018-12-17] MEDS: PANTOPRAZOLE SODIUM 20 MG TABLET.DR PO SCH (06:42)
[2018-12-17 06:59] VITALS: BP 143/83
[2018-12-17] MEDS ORDERED: BUPROPION HCL 75 MG TABLET PO SCH (10:00)
[2018-12-17] MEDS ORDERED: TIZANIDINE HCL 4 MG TABLET PO SCH (10:00)
--- NOTE | 2018-12-19 06:16 | ER Document Report ---
Entered by ARUNA HANNAH SCRIBE 12/17/18 0932 Acting as scribe for:YENIFER LACY DO Doctor's Note Notes: 12/17/18 09:30 Medical rounds: Patient initially does not understand why she is here despite not using any illegal drugs and being compliant with all her medications. Patient becomes calm and agreeable to plan. Patient is stable for transfer. I personally performed the services described in the documentation, reviewed and edited the documentation which was dictated to the scribe in my presence, and it accurately records my words and actions.
== END 2018-12-17 09:30 ==
LOC: ER 05:37
DX: T50.904A Poisoning by unspecified drugs, medicaments and biological substances, undetermined, initial encounter (principal); F31.9 Bipolar disorder, unspecified; R41.82 Altered mental status, unspecified; Z79.899 Other long term (current) drug therapy; I10 Essential (primary) hypertension; E11.9 Type 2 diabetes mellitus without complications
CPT/HCPCS: 93005; 36415; 87086; 82553; 82550; 83735; 80307 ×2; 85025; 87088; 80053; 81001; 84484; 87186; 71045; 70450; 93010; A9270 ×9; J3490 ×2; 51701; 99285

== ENCOUNTER 2019-02-15 21:09 | Emergency (ER) | payer MEDICARE, MEDICAID ==
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
[2019-02-15 21:53] LABS: APPEARANCE,URINE CLEAR; BILIRUBIN,URINE NEGATIVE (NEGATIVE); COLOR,URINE STRAW; GLUCOSE, URINE NEGATIVE (NEGATIVE); KETONES,URINE NEGATIVE (NEGATIVE); LEUKOCYTE ESTERASE,URINE NEGATIVE (NEGATIVE); NITRITE,URINE NEGATIVE (NEGATIVE); PROTEIN,URINE NEGATIVE (NEGATIVE); URINE SPECIFIC GRAVITY 1.002; UROBILINOGEN,URINE NEGATIVE mg/dL (<2.0)
--- NOTE | 2019-02-15 22:08 | RADIOLOGY REPORT (SQ) ---
EXAM DESCRIPTION: CT HEAD WITHOUT IV CONTRAST COMPLETED DATE/TME: 02/15/2019 21:36 CLINICAL HISTORY: 63 years, Female, altered mental status COMPARISON: 12/15/2018 CT TECHNIQUE: 193 Images stored on PACS. All CT scanners at this facility use dose modulation, iterative reconstruction, and/or weight based dosing when appropriate to reduce radiation dose to as low as reasonably achievable (ALARA). [facility]: Dose Right [facility]: CareDose [facility]: Dose Right [facility]: Teradose 4D [facility]: [employer] LIMITATIONS: None. FINDINGS: The globes are intact. Air-fluid level of the left maxillary sinus. No displaced or depressed skull fracture. No intra or extra-axial hemorrhage. CT is limited for evaluation of acute infarct. No CT evidence for large or territorial acute infarct. No mass or midline shift. IMPRESSION: Left maxillary sinusitis. Remainder is unremarkable TECHNICAL DOCUMENTATION: Quality ID # [id number]: Final reports with documentation of one or more dose reduction techniques (e.g., Automated exposure control, adjustment of the mA and/or kV according to patient size, use of iterative reconstruction technique) copyright 2011 [employer]- All Rights Reserved
--- NOTE | 2019-02-15 22:09 | RADIOLOGY REPORT (SQ) ---
EXAM DESCRIPTION: XR CHEST 1 VIEW COMPLETED DATE/TME: 02/15/2019 21:37 CLINICAL HISTORY: 63 years, Female, AMS COMPARISON: 12/15/2018 chest x-ray NUMBER OF VIEWS: 1 TECHNIQUE: Portable chest LIMITATIONS: None. FINDINGS: Heart size normal. Osteopenia. Lungs are clear. No pneumothorax IMPRESSION: No acute cardiopulmonary process copyright 2010 [employer]- All Rights Reserved
[2019-02-15 22:12] LABS: URINE AMPHETAMINES SCREEN NEGATIVE; URINE BARBITURATES SCREEN NEGATIVE; URINE BENZODIAZEPINES SCREEN NEGATIVE; URINE MARIJUANA (THC) SCREEN NEGATIVE; URINE METHADONE SCREEN NEGATIVE; URINE PHENCYCLIDINE SCREEN NEGATIVE
[2019-02-15 22:18] LABS: URINE COCAINE SCREEN NEGATIVE
[2019-02-15 22:40] LABS: ABSOLUTE BASOPHILS # (AUTO) 0.1 10^3/uL (0.0-0.2); ABSOLUTE EOSINOPHILS # (AUTO) 0.1 10^3/uL (0.0-0.6); ABSOLUTE LYMPHOCYTES (AUTO) 2.9 10^3/uL (0.5-4.7); ABSOLUTE MONOCYTES (AUTO) 0.7 10^3/uL (0.1-1.4); ABSOLUTE NEUT (AUTO) 5.5 10^3/uL (1.7-8.2); BASOPHILS % (AUTO) 0.7 % (0-2); EOSINOPHILS % (AUTO) 0.6 % (0-6); HEMATOCRIT 39.4 % (36.0-47.0); LYMPHOCYTES % (AUTO) 31.3 % (13-45); MEAN CORPUSCULAR HEMOGLOBIN 30.8 pg (27.0-33.4); MEAN CORPUSCULAR HGB CONC 35.5 g/dL (32.0-36.0); MEAN CORPUSCULAR VOLUME 87 fl (80-97); MONOCYTES % (AUTO) 7.3 % (3-13); PLATELET COUNT 391 10^3/uL (150-450); RED BLOOD COUNT 4.54 10^6/uL (3.72-5.28); RED CELL DISTRIBUTION WIDTH 13.3 % (11.5-14.0); SEGMENTED NEUTROPHILS % (AUTO) 60.1 % (42-78); TOTAL CELLS COUNTED % (AUTO) 100 %; WHITE BLOOD COUNT 9.1 10^3/uL (4.0-10.5)
[2019-02-15 23:01] LABS: ALANINE AMINOTRANSFERASE 28 U/L (9-52); ALBUMIN 4.4 g/dL (3.5-5.0); ALKALINE PHOSPHATASE 83 U/L (38-126); ANION GAP 11 (5-19); ASPARTATE AMINO TRANSFERASE 17 U/L (14-36); BILIRUBIN,DIRECT 0.2 mg/dL (0.0-0.4); BILIRUBIN,TOTAL 0.5 mg/dL (0.2-1.3); BLOOD UREA NITROGEN 7 mg/dL (7-20); CALCIUM 9.5 mg/dL (8.4-10.2); CARBON DIOXIDE 27 mmol/L (22-30); CHLORIDE 100 mmol/L (98-107); GLUCOSE 83 mg/dL (75-110); POTASSIUM 3.7 mmol/L (3.6-5.0); SODIUM 138.2 mmol/L (137-145); TOTAL PROTEIN 7.4 g/dL (6.3-8.2)
[2019-02-15 23:09] LABS: ACETAMINOPHEN < 10 ug/mL (10-30); ALCOHOL < 10 mg/dL (NONE DETECTED); SALICYLATE < 1.0 mg/dL (2.0-20.0)
[2019-02-15] MEDS ORDERED: LORAZEPAM INJ 2 MG/1 ML VIAL IV ONE ×2 (23:18→23:59)
--- NOTE | 2019-02-16 07:29 | EKG REPORT ---
SEVERITY:- NORMAL ECG - SINUS RHYTHM : Confirmed by: Johnathon Smith MD 16-Feb-2019 07:27:18
--- NOTE | 2019-02-16 10:03 | ER Document Report ---
Doctor's Note Notes: 02/16/19 10:02 Rounds: Chart reviewed. Patient sleeping soundly and did not awaken to my voice. Brought in for altered mental status. History of bipolar disorder. Also history of traumatic brain injury. When admitted, behavior was somewhat manic. Vital signs are all essentially normal. Lab studies were normal. Solange ent appears to be medically stable for transfer or discharge. Mihaela Kelley MD
--- NOTE | 2019-02-16 14:43 | PSYCHOLOGICAL NOTE ---
Psych Note - Psych Note Date seen by psych provider: 02/16/19 Time seen by psych provider: 08:26 - Evaluation from . Psych Note: Reason for Consult: Acute Psychosis, AMS, Delusional, 24 Hour IVC Petition Contact Permissions: Chan who came to visit patient later in the day Patient is a 63 year old female who presented to the ED last evening via EMS for acute psychosis, AMS, being delusional, hx of medication overuse and similar etiology. When asked why patient was in the ED she stated "I was in bed, I don't know what happened, the next thing I knew the ambulance was bringing me to the hospital." She commented "not really" when asked if she was getting sleep. She could not stay awake. She reported she resides with a roommate. She stated "yeah you should have it all" when asked about being on medication. She further stated Zyprexa and Wellbutrin." She identified her outpatient medication provider was "Dr. Hollis at [facility]." She confirmed previous hospitalization with most recent being "last month at [facility]." She reported she was diagnosed with "Bipolar and being on bad medications that cause psychotic episodes." She stated she wanted to eat. Patient presented groggy, lethargic and tired as evidenced by inability to stay awake, required her name said to keep her awake, often had to repeat question and she would doze right back off. She was alert and oriented to self, person, and place. She denied SI/HI. She did not seem to be responding to internal stimuli as evidenced by answering questions appropriately when addressed and staying on topic. Thought processes were difficult to ascertain given her groggy/lethargic and tired state. Conversational speech was somewhat mumbled and often trailed off as she dozed back off to sleep. Intellectual abilities are estimated to be average. Insight, judgment and impulse control were poor given groggy/lethargic state. Chan came to visit. He stated patient's boyfriend 2 weeks ago from a heart attack in bed. He reported he and patient have been at the house more of ten than not going through his things and getting stuff out. He stated it was "hard work" and patient sounded like she was physically exhausted from it. Patient stated she would then get home and unable to turn off her thoughts so not sleeping well. She was more alert and oriented later in the day when grandson visited. She asked why medications were being changed and to what. Grandson said he would be natural support and part of discharge plan. He helped patient to make phone call for someone to feed her cats. Chart review revealed patient's pharmacy was [facility] CM contacted them and requested med list be faxed. Listed was February 2019 refills: Zyprexa 5MG QHS (January refill was 2.5MG QAM, Geodon 80MG QAM and 160MG QPM was listed as previous antipsychotic in Nov 2018) Klonopin 1MG BID Wellbutrin 150MG QAM (decreased from 200MG QAM Effie refill) Neurontin 600MG Q8H/QID (only in January not February) Trazodone 300MG QHS (only in January not February) Buspar 15MG TID (only in January not February) Head CT dated 12/15/18 completed secondary to AMS had the following finding: mild patchy hypodensities within the periventricular and subcortical white matter consistent with microangiopathic ischemic changes. This language is consistent with neurodegenerative processes as seen in dementia but cannot be diagnosed based on imaging alone. Of importance is that it can still aid when prescribing medications. Patient was seen by [facility] 12/22/18 for AMS after being found wandering by EMS. This is when she went inpatient to [facility]. In October 2016 she went to [facility] for similar etiology. She was seen 06/21/17 by [facility] after roommate found her on the floor eating cat feces which patient later denied after becoming alert and oriented. Diagnosis: V62.82 (Z63.4) Uncomplicated Bereavement 296.80 (F31.9) Unspecified Bipolar and Related Disorder by History per patient Hx of over medicating Hx medication overuse/misuse R/O 799.59 (R41.9) Unspecified Neurocognitive Disorder Medication recommendations made by the psychiatric medical provider, Dr. Awa MD., includes: Decrease Wellbutrin to 75MG daily for 10 days (WEENING OFF) Discontinue all other home psych meds: Klonopin, Zyprexa, Trazodone, Gabapentin, Tizanidine Add Depakote DR 250MG twice a day for mood stabilization Impression/Plan: Recommendation to complete full IVC given groggy/lethargic state and medication changes to address mood disorder while also taking into consideration Head CT language consistent with neurodegenerative process. It was discovered that patient's boyfriend 2 weeks ago, she has been cleaning out his house (physical exhaustion) and unable to turn mind off at night for sleep (so not sleeping well). Will reassess tomorrow (02/17/19) morning and plan to discharge with grandson being support and follow up at [facility]. Recommendation for neurology referral. Consulted with Dr. Flores regarding the management and care of patient. ED Physician in agreement with recommendations.
[2019-02-16] MEDS: BUPROPION HCL 75 MG TABLET PO SCH (15:47)
[2019-02-16] MEDS: DIVALPROEX SODIUM 250 MG TABLET.DR PO SCH (17:43)
--- NOTE | 2019-02-17 09:24 | PSYCHOLOGICAL NOTE ---
Psych Note - Psych Note Date seen by psych provider: 02/17/19 Time seen by psych provider: 07:35 - Chart review at 0735. Re evalaution from [id number]. Psych Note: Reason for Consult: 1st Re evaluation, IVC, Acute Psychosis, AMS, Delusional, 24 Hour IVC Petition Contact Permissions: Chan Batista [phone] who came to visit patient yesterday Patient is a 63 year old female who is in the ED for acute psychosis, AMS, being delusional, hx of medication overuse and similar etiology. Today she stated she was doing "okay." She stated she remembered talking with this clinician when her grandson was visiting yesterday. She identified she was in the ED because she w as "having some sort of mental issues." She denied being involved in therapy. She presented more awake and less groggy/lethargic. She seemed to respond to medication changes well given no report or observed side effects. Patient was alert and oriented to self, person, place, time and situation. Mood was more euthymic with brighter affect. She was not tried, groggy or lethargic. She denied SI/HI. She did not appear to be responding to internal stimuli as evidenced by fair eye contact, answering questions appropriately when addressed, staying on topic and being involved in plan of care. Thought processes were more linear. Conversational speech was not mumbled, it was within normal limits for rate, tone and prosody. Intellectual abilities are estimated to be average. Insight, judgment and impulse control were fair as evidenced by linear thoughts and less groggy/lethargic/tired. She was able to get some rest/sleep. Patient's grandson part of plan of care for discharge. He provided trans portation. Conversation took place yesterday with respect to follow up at [facility] for medication management and requesting grief therapy. He also said he could help/assist her more and monitor more closely. Diagnosis: V62.82 (Z63.4) Uncomplicated Bereavement 296.80 (F31.9) Unspecified Bipolar and Related Disorder by History per patient Hx of over medicating Hx medication overuse/misuse R/O 799.59 (R41.9) Unspecified Neurocognitive Disorder Medication recommendations made by the psychiatric medical provider, Dr. Awa MD., includes: Provide scripts for medications administered while in the ED. Wellbutrin 75MG daily for 8 more days (weening off) Depakote DR 250MG twice a day for mood stabilization Impression/Plan: Patient is cleared from acute psychiatric services. Recommendation to rescind IVC. She denied SI/HI and these were never presenting problems. No observed psychosis as she was able to express self as well as wants/needs. Of note per patient and her grandson patient's of a heart attack 2 weeks ago and they had been spending most days clearing out his home (physically tired) and she reported ruminating thoughts once home and time for bed so poor sleep. Medication adjustments took place. Care coordination with [facility] (current outpatient MH provider) via patient referral form (faxed) for medication adjustments and copy of Head CT from December 2018. Instructed patient to do a walk in follow up at [facility] within 3-5 days since there were medication changes and to request therapy for grief counseling. Provided outpatient MH resource sheet which documented walk in to [facility] within 3-5 days and highlighted I[facility] MCM for crisis/talk therapy/linkage. Recommendation for neurology follow up. Patient's grandson was included in plan of care. Consulted with Dr. Flores regarding the management and care of patient. ED Physician in agreement with recommendations.
[2019-02-17] MEDS: DIVALPROEX SODIUM 250 MG TABLET.DR PO SCH (09:46)
[2019-02-17] MEDS: BUPROPION HCL 75 MG TABLET PO SCH (09:47)
--- NOTE | 2019-02-17 09:55 | ER Document Report ---
Doctor's Note Notes: 02/17/19 09:53 Rounds: Chart reviewed and patient interviewed. Patient being evaluated and treated for bipolar disorder. Also has a history of IBS, GERD, and hypertension. Says she is feeling a lot better today. Vital signs are all normal. Lab studies were all essentially normal. Patient was started on Depakote and Wellbutrine. Patient appears to be medically stable for transfer or discharge. Mihaela Kelley MD
[2019-02-17 10:30] VITALS: BP 154/93
== END 2019-02-17 10:30 | disposition home or self-care (01) ==
LOC: ER 21:09
DX: R41.82 Altered mental status, unspecified (principal); Z63.4 Disappearance and death of family member; Z72.820 Sleep deprivation; F20.9 Schizophrenia, unspecified; F31.9 Bipolar disorder, unspecified; J32.0 Chronic maxillary sinusitis; I10 Essential (primary) hypertension; E11.9 Type 2 diabetes mellitus without complications; S00.511A Abrasion of lip, initial encounter; X58.XXXA Exposure to other specified factors, initial encounter; Z87.820 Personal history of traumatic brain injury; Z88.5 Allergy status to narcotic agent; Z88.8 Allergy status to other drugs, medicaments and biological substances; Z88.1 Allergy status to other antibiotic agents
CPT/HCPCS: 93005; 96376; 99285; 96374; 36415; 80307 ×4; 85025; 80053; 81001; 84484; 71045; 70450; 93010; J2060 ×2; A9270 ×4

== ENCOUNTER 2019-04-23 18:32 | Emergency (ER) | payer MEDICARE, MEDICAID ==
[2019-04-23 18:57] LABS: ABSOLUTE BASOPHILS # (AUTO) 0.1 10^3/uL (0.0-0.2); ABSOLUTE EOSINOPHILS # (AUTO) 0.1 10^3/uL (0.0-0.6); ABSOLUTE LYMPHOCYTES (AUTO) 3.2 10^3/uL (0.5-4.7); ABSOLUTE MONOCYTES (AUTO) 0.5 10^3/uL (0.1-1.4); ABSOLUTE NEUT (AUTO) 4.8 10^3/uL (1.7-8.2); BASOPHILS % (AUTO) 0.7 % (0-2); EOSINOPHILS % (AUTO) 0.8 % (0-6); HEMATOCRIT 41.5 % (36.0-47.0); HEMOGLOBIN 14.9 g/dL (12.0-15.5); LYMPHOCYTES % (AUTO) 37.1 % (13-45); MEAN CORPUSCULAR HGB CONC 35.9 g/dL (32.0-36.0); MEAN CORPUSCULAR VOLUME 87 fl (80-97); MONOCYTES % (AUTO) 5.5 % (3-13); PLATELET COUNT 338 10^3/uL (150-450); RED CELL DISTRIBUTION WIDTH 13.7 % (11.5-14.0); SEGMENTED NEUTROPHILS % (AUTO) 55.9 % (42-78); TOTAL CELLS COUNTED % (AUTO) 100 %; WHITE BLOOD COUNT 8.6 10^3/uL (4.0-10.5)
[2019-04-23 19:19] LABS: ALANINE AMINOTRANSFERASE 18 U/L (9-52); ALBUMIN 4.6 g/dL (3.5-5.0); ALCOHOL < 10 mg/dL (NONE DETECTED); ALKALINE PHOSPHATASE 91 U/L (38-126); ANION GAP 11 (5-19); ASPARTATE AMINO TRANSFERASE 17 U/L (14-36); BILIRUBIN,DIRECT 0.3 mg/dL (0.0-0.4); BILIRUBIN,TOTAL 0.5 mg/dL (0.2-1.3); BLOOD UREA NITROGEN 7 mg/dL (7-20); CARBON DIOXIDE 28 mmol/L (22-30); CHLORIDE 100 mmol/L (98-107); GLUCOSE 97 mg/dL (75-110); POTASSIUM 3.7 mmol/L (3.6-5.0); SODIUM 138.7 mmol/L (137-145); TOTAL PROTEIN 7.6 g/dL (6.3-8.2)
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
[2019-04-23 20:19] LABS: APPEARANCE,URINE CLEAR; BILIRUBIN,URINE NEGATIVE (NEGATIVE); COLOR,URINE YELLOW; GLUCOSE, URINE NEGATIVE (NEGATIVE); KETONES,URINE NEGATIVE (NEGATIVE); LEUKOCYTE ESTERASE,URINE NEGATIVE (NEGATIVE); NITRITE,URINE NEGATIVE (NEGATIVE); PROTEIN,URINE NEGATIVE (NEGATIVE); URINE SPECIFIC GRAVITY 1.009; UROBILINOGEN,URINE NEGATIVE mg/dL (<2.0)
[2019-04-23 20:32] LABS: URINE AMPHETAMINES SCREEN NEGATIVE; URINE BARBITURATES SCREEN NEGATIVE; URINE BENZODIAZEPINES SCREEN NEGATIVE; URINE COCAINE SCREEN NEGATIVE; URINE MARIJUANA (THC) SCREEN NEGATIVE; URINE METHADONE SCREEN NEGATIVE; URINE PHENCYCLIDINE SCREEN NEGATIVE
[2019-04-24 00:28] VITALS: BP 123/77
--- NOTE | 2019-04-24 10:11 | EKG REPORT ---
SEVERITY:- ABNORMAL ECG - SINUS RHYTHM NONSPECIFIC T ABNORMALITIES, INFERIOR LEADS : Confirmed by: Johnathon Smith MD 24-Apr-2019 10:10:23
== END 2019-04-24 00:29 | disposition home or self-care (01) ==
LOC: ER 18:32
DX: R41.82 Altered mental status, unspecified (principal); R11.0 Nausea; I10 Essential (primary) hypertension; E11.9 Type 2 diabetes mellitus without complications; Z88.5 Allergy status to narcotic agent; Z88.8 Allergy status to other drugs, medicaments and biological substances; Z88.1 Allergy status to other antibiotic agents; F17.200 Nicotine dependence, unspecified, uncomplicated
CPT/HCPCS: 36415; 80053; 80307; 81001; 83735; 85025; 93005; 93010; 99285

== ENCOUNTER 2019-04-24 09:45 | Emergency (ER) | payer MEDICARE, MEDICAID ==
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
[2019-04-24 11:07] LABS: ABSOLUTE EOSINOPHILS # (AUTO) 0.1 10^3/uL (0.0-0.6); ABSOLUTE LYMPHOCYTES (AUTO) 2.3 10^3/uL (0.5-4.7); ABSOLUTE MONOCYTES (AUTO) 0.4 10^3/uL (0.1-1.4); BASOPHILS % (AUTO) 0.7 % (0-2); EOSINOPHILS % (AUTO) 1.3 % (0-6); HEMATOCRIT 36.8 % (36.0-47.0); HEMOGLOBIN 13.1 g/dL (12.0-15.5); LYMPHOCYTES % (AUTO) 33.3 % (13-45); MEAN CORPUSCULAR HEMOGLOBIN 30.8 pg (27.0-33.4); MEAN CORPUSCULAR HGB CONC 35.5 g/dL (32.0-36.0); MEAN CORPUSCULAR VOLUME 87 fl (80-97); PLATELET COUNT 258 10^3/uL (150-450); RED BLOOD COUNT 4.24 10^6/uL (3.72-5.28); RED CELL DISTRIBUTION WIDTH 13.5 % (11.5-14.0); SEGMENTED NEUTROPHILS % (AUTO) 58.7 % (42-78); TOTAL CELLS COUNTED % (AUTO) 100 %; WHITE BLOOD COUNT 6.8 10^3/uL (4.0-10.5)
[2019-04-24 11:19] LABS: APPEARANCE,URINE SLIGHTLY-CLOUDY; BILIRUBIN,URINE NEGATIVE (NEGATIVE); COLOR,URINE YELLOW; GLUCOSE, URINE NEGATIVE (NEGATIVE); KETONES,URINE NEGATIVE (NEGATIVE); LEUKOCYTE ESTERASE,URINE NEGATIVE (NEGATIVE); NITRITE,URINE NEGATIVE (NEGATIVE); PROTEIN,URINE NEGATIVE (NEGATIVE); URINE SPECIFIC GRAVITY 1.003; UROBILINOGEN,URINE NEGATIVE mg/dL (<2.0)
[2019-04-24 11:24] LABS: ALANINE AMINOTRANSFERASE 17 U/L (9-52); ALBUMIN 4.2 g/dL (3.5-5.0); ALKALINE PHOSPHATASE 71 U/L (38-126); ANION GAP 11 (5-19); ASPARTATE AMINO TRANSFERASE 18 U/L (14-36); BILIRUBIN,DIRECT 0.3 mg/dL (0.0-0.4); BILIRUBIN,TOTAL 0.4 mg/dL (0.2-1.3); BLOOD UREA NITROGEN 8 mg/dL (7-20); CALCIUM 9.3 mg/dL (8.4-10.2); CARBON DIOXIDE 30 mmol/L (22-30); CHLORIDE 98 mmol/L (98-107); GLUCOSE 78 mg/dL (75-110); POTASSIUM 3.5 mmol/L (3.6-5.0); TOTAL PROTEIN 6.8 g/dL (6.3-8.2)
[2019-04-24 11:26] LABS: ALCOHOL < 10 mg/dL (NONE DETECTED); SALICYLATE < 1.0 mg/dL (2.0-20.0)
[2019-04-24 11:34] LABS: URINE AMPHETAMINES SCREEN NEGATIVE; URINE BARBITURATES SCREEN NEGATIVE; URINE BENZODIAZEPINES SCREEN NEGATIVE; URINE COCAINE SCREEN NEGATIVE; URINE MARIJUANA (THC) SCREEN NEGATIVE; URINE METHADONE SCREEN NEGATIVE; URINE PHENCYCLIDINE SCREEN NEGATIVE
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
--- NOTE | 2019-04-24 14:07 | PSYCHOLOGICAL NOTE ---
Psych Note - Psych Note Date seen by psych provider: 04/24/19 Time seen by psych provider: 11:00 Psych Note: Reason for Consult: AMS Patient brought in because her neighbors were concerned that she was not acting right. Patient has a history of both mental health and misuse of her prescription medications. She is prescribed narcotic medication that she just filled yesterday. Patient originally was agitated and had flight of ideas and was very difficult to understand. Patient has calmed down and was able to demonstrate overall organized and linear conversation with both clinician and on the phone talking with a friend. Patient denies misuse of her medications and first leaves out narcotic prescriptions when listing her all her medication and then states she had not pecan picker the prescription yet when directly asked about them. Behavioral health team spoke with patient's grandson, Lester. He states that patient's presentation is baseline and has no concerns with her going home with him; he asks that she is not allowed to walk home as he feels it is too far. He reports he can pick her up at 3pm after he gets of work. He confirms he will be part of the patient's plan of care. Diagnosis: 296.80 (F31.9) Unspecified Bipolar and Related Disorder by History per patient Hx of over medicating Hx medication overuse/misuse R/O 799.59 (R41.9) Unspecified Neurocognitive Disorder no medication recommendations at this time Impression/Plan: Patient is recommended for rescind of IVC petition and is cleared from acute psychiatric services. Patient is no longer demonstrating significant erratic behaviors. Patient is able to demonstrate organized and linear thought processes with minimal flight of ideas. Patient's family member, grandtomi Batista, reports this is baseline for patient. Patient is able to express self as well as wants/needs. She has an outpatient mental health provider with [facility]. Clinician notes patient was seen in February of this year with recommendations to follow-up with neurology. Patient was also provided medication recommendations during the February evaluation, taking into consideration the concern of a possible neurodegenerative process indicated in her Head CT. Both recommendations and head CT results were forwarded to patient's outpatient mental health provider [facility] for continuity of care. [facility] did not continue medication recommendations and restarted the patient on her previous medications. Dr. Flores was consulted on the care and management of this patient; attending physician is in agreement with recommendations and disposition.
[2019-04-24 17:53] VITALS: BP 152/88
--- NOTE | 2019-04-25 09:31 | EKG REPORT ---
SEVERITY:- NORMAL ECG - SINUS RHYTHM : Confirmed by: Johnathon Smith MD 25-Apr-2019 09:30:02
== END 2019-04-24 17:54 | disposition home or self-care (01) ==
LOC: ER 09:45
DX: F31.9 Bipolar disorder, unspecified (principal); R41.82 Altered mental status, unspecified; F17.200 Nicotine dependence, unspecified, uncomplicated; I10 Essential (primary) hypertension; E11.9 Type 2 diabetes mellitus without complications; Z79.899 Other long term (current) drug therapy
CPT/HCPCS: 36415; 80053; 80307; 81001; 82962; 83735; 85025; 93005; 93010; 99285

== ENCOUNTER 2019-04-28 09:36 | Emergency (ER) | payer MEDICARE, MEDICAID ==
[2019-04-28 10:17] LABS: ABSOLUTE BASOPHILS # (AUTO) 0.1 10^3/uL (0.0-0.2); ABSOLUTE LYMPHOCYTES (AUTO) 1.6 10^3/uL (0.5-4.7); ABSOLUTE MONOCYTES (AUTO) 0.5 10^3/uL (0.1-1.4); ABSOLUTE NEUT (AUTO) 5.5 10^3/uL (1.7-8.2); BASOPHILS % (AUTO) 0.8 % (0-2); HEMATOCRIT 40.8 % (36.0-47.0); HEMOGLOBIN 14.2 g/dL (12.0-15.5); LYMPHOCYTES % (AUTO) 21.1 % (13-45); MEAN CORPUSCULAR HEMOGLOBIN 30.4 pg (27.0-33.4); MEAN CORPUSCULAR HGB CONC 34.8 g/dL (32.0-36.0); MEAN CORPUSCULAR VOLUME 87 fl (80-97); MONOCYTES % (AUTO) 6.7 % (3-13); PLATELET COUNT 321 10^3/uL (150-450); RED BLOOD COUNT 4.67 10^6/uL (3.72-5.28); RED CELL DISTRIBUTION WIDTH 13.7 % (11.5-14.0); SEGMENTED NEUTROPHILS % (AUTO) 71.4 % (42-78); TOTAL CELLS COUNTED % (AUTO) 100 %; WHITE BLOOD COUNT 7.7 10^3/uL (4.0-10.5)
[2019-04-28 10:46] LABS: ALANINE AMINOTRANSFERASE 22 U/L (9-52); ALBUMIN 4.4 g/dL (3.5-5.0); ALKALINE PHOSPHATASE 87 U/L (38-126); ANION GAP 10 (5-19); ASPARTATE AMINO TRANSFERASE 17 U/L (14-36); BILIRUBIN,DIRECT 0.4 mg/dL (0.0-0.4); BILIRUBIN,TOTAL 0.7 mg/dL (0.2-1.3); BLOOD UREA NITROGEN 14 mg/dL (7-20); CALCIUM 9.7 mg/dL (8.4-10.2); CARBON DIOXIDE 27 mmol/L (22-30); CHLORIDE 110 mmol/L (98-107); GLUCOSE 146 mg/dL (75-110); POTASSIUM 3.7 mmol/L (3.6-5.0); TOTAL PROTEIN 7.3 g/dL (6.3-8.2)
[2019-04-28 10:48] LABS: ACETAMINOPHEN < 10 ug/mL (10-30); ALCOHOL < 10 mg/dL (NONE DETECTED); SALICYLATE < 1.0 mg/dL (2.0-20.0)
[2019-04-28 11:50] LABS: APPEARANCE,URINE SLIGHTLY-CLOUDY; BILIRUBIN,URINE NEGATIVE (NEGATIVE); COLOR,URINE YELLOW; GLUCOSE, URINE NEGATIVE (NEGATIVE); KETONES,URINE 20 mg/dL (NEGATIVE); LEUKOCYTE ESTERASE,URINE TRACE (NEGATIVE); NITRITE,URINE NEGATIVE (NEGATIVE); PROTEIN,URINE 100 mg/dL (NEGATIVE); URINE SPECIFIC GRAVITY 1.027
[2019-04-28 12:03] LABS: URINE AMPHETAMINES SCREEN NEGATIVE; URINE BARBITURATES SCREEN NEGATIVE; URINE BENZODIAZEPINES SCREEN NEGATIVE; URINE COCAINE SCREEN NEGATIVE; URINE MARIJUANA (THC) SCREEN NEGATIVE; URINE METHADONE SCREEN NEGATIVE; URINE PHENCYCLIDINE SCREEN NEGATIVE
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
[2019-04-28 18:49] VITALS: BP 157/96
--- NOTE | 2019-04-28 23:59 | EKG REPORT ---
SEVERITY:- NORMAL ECG - SINUS RHYTHM NON SPECIFIC ST-T WAVE CHANGES CONSIDER [facility] : Confirmed by: Norris Hooker 28-Apr-2019 23:58:59
== END 2019-04-28 19:02 | disposition home or self-care (01) ==
LOC: ER 09:36
DX: T50.904A Poisoning by unspecified drugs, medicaments and biological substances, undetermined, initial encounter (principal); F31.0 Bipolar disorder, current episode hypomanic; I10 Essential (primary) hypertension; E11.9 Type 2 diabetes mellitus without complications; Z88.5 Allergy status to narcotic agent; Z88.8 Allergy status to other drugs, medicaments and biological substances; Z88.1 Allergy status to other antibiotic agents
CPT/HCPCS: 36415; 80053; 80307; 81001; 85025; 93005; 93010; 99285

== ENCOUNTER 2019-04-29 10:06 | Inpatient (IN) | payer MEDICARE, MEDICAID ==
[2019-04-29 10:23] LABS: ABSOLUTE BASOPHILS # (AUTO) 0.1 10^3/uL (0.0-0.2); ABSOLUTE LYMPHOCYTES (AUTO) 2.3 10^3/uL (0.5-4.7); ABSOLUTE NEUT (AUTO) 11.8 10^3/uL (1.7-8.2); BASOPHILS % (AUTO) 0.5 % (0-2); EOSINOPHILS % (AUTO) 0.1 % (0-6); HEMATOCRIT 44.2 % (36.0-47.0); HEMOGLOBIN 15.7 g/dL (12.0-15.5); LYMPHOCYTES % (AUTO) 14.9 % (13-45); MEAN CORPUSCULAR HEMOGLOBIN 30.7 pg (27.0-33.4); MEAN CORPUSCULAR HGB CONC 35.5 g/dL (32.0-36.0); MEAN CORPUSCULAR VOLUME 87 fl (80-97); MONOCYTES % (AUTO) 6.8 % (3-13); PLATELET COUNT 404 10^3/uL (150-450); RED BLOOD COUNT 5.11 10^6/uL (3.72-5.28); RED CELL DISTRIBUTION WIDTH 13.9 % (11.5-14.0); SEGMENTED NEUTROPHILS % (AUTO) 77.7 % (42-78); TOTAL CELLS COUNTED % (AUTO) 100 %; WHITE BLOOD COUNT 15.2 10^3/uL (4.0-10.5)
[2019-04-29] MEDS ORDERED: 1/2 NORMAL SALINE 1,000 ML IV ONE (10:24)
[2019-04-29 10:25] LABS: INTERNATIONAL RATION (INR) 1.08; PROTHROMBIN TIME 14.1 SEC (11.4-15.4)
[2019-04-29 10:33] LABS: VENOUS BLOOD BASE EXCESS 1.4 mmol/L; VENOUS BLOOD HCO3 26.1 mmol/L (20-32); VENOUS BLOOD PCO2 41.7 mmHg (35-63); VENOUS BLOOD PH 7.42 (7.30-7.42)
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
[2019-04-29 10:45] LABS: ALANINE AMINOTRANSFERASE 16 U/L (9-52); ALBUMIN 4.9 g/dL (3.5-5.0); ALKALINE PHOSPHATASE 98 U/L (38-126); ANION GAP 12 (5-19); ASPARTATE AMINO TRANSFERASE 25 U/L (14-36); BILIRUBIN,DIRECT 0.4 mg/dL (0.0-0.4); BLOOD UREA NITROGEN 13 mg/dL (7-20); CALCIUM 10.2 mg/dL (8.4-10.2); CARBON DIOXIDE 27 mmol/L (22-30); CHLORIDE 105 mmol/L (98-107); GLUCOSE 118 mg/dL (75-110); POTASSIUM 4.1 mmol/L (3.6-5.0); TOTAL PROTEIN 8.2 g/dL (6.3-8.2)
[2019-04-29 11:19] LABS: APPEARANCE,URINE SLIGHTLY-CLOUDY; BILIRUBIN,URINE NEGATIVE (NEGATIVE); COLOR,URINE YELLOW; GLUCOSE, URINE NEGATIVE (NEGATIVE); KETONES,URINE TRACE mg/dL (NEGATIVE); LEUKOCYTE ESTERASE,URINE TRACE (NEGATIVE); NITRITE,URINE POSITIVE (NEGATIVE); PROTEIN,URINE NEGATIVE (NEGATIVE); UROBILINOGEN,URINE NEGATIVE mg/dL (<2.0)
[2019-04-29] MEDS ORDERED: CEFTRIAXONE 1 GM/D5W RTU 1 GM/50 ML RTUPB IV ONE (11:36)
[2019-04-29] MEDS ORDERED: NORMAL SALINE 1000 ML 1,000 ML IV ONE (11:36)
--- NOTE | 2019-04-29 11:55 | RADIOLOGY REPORT (SQ) ---
EXAM DESCRIPTION: CHEST SINGLE VIEW COMPLETED DATE/TIME: 04/29/2019 11:30 am REASON FOR STUDY: altered mental status COMPARISON: 02/15/2019 EXAM PARAMETERS: NUMBER OF VIEWS: One view. TECHNIQUE: Single frontal radiographic view of the chest acquired. RADIATION DOSE: NA LIMITATIONS: None. FINDINGS: LUNGS AND PLEURA: No opacities, masses or pneumothorax. No pleural effusion. MEDIASTINUM AND HILAR STRUCTURES: No masses. Contour normal. HEART AND VASCULAR STRUCTURES: Heart size is borderline. No pulmonary edema. BONES: No acute findings. HARDWARE: None in the chest. OTHER: No other significant finding. IMPRESSION: Borderline cardiomegaly without pulmonary edema. TECHNICAL DOCUMENTATION: JOB ID: [id number] [employer]- All Rights Reserved Reading location - IP/workstation name: [email or web address]
[2019-04-29 12:29] LABS: URINE AMPHETAMINES SCREEN NEGATIVE; URINE BARBITURATES SCREEN NEGATIVE; URINE BENZODIAZEPINES SCREEN NEGATIVE; URINE COCAINE SCREEN NEGATIVE; URINE MARIJUANA (THC) SCREEN NEGATIVE; URINE METHADONE SCREEN NEGATIVE; URINE PHENCYCLIDINE SCREEN NEGATIVE
--- NOTE | 2019-04-29 13:22 | RADIOLOGY REPORT (SQ) ---
EXAM DESCRIPTION: CT HEAD WITHOUT COMPLETED DATE/TIME: 04/29/2019 1:12 pm REASON FOR STUDY: altered mental status COMPARISON: 02/15/2019 TECHNIQUE: Axial images acquired through the brain without intravenous contrast. Images reviewed wi th bone, brain and subdural windows. Additional sagittal and coronal reconstructions were generated. Images stored on PACS. All CT scanners at this facility use dose modulation, iterative reconstruction, and/or weight based d osing when appropriate to reduce radiation dose to as low as reasonably achievable (ALARA). [facility]: Dose Right [facility]: CareDose [facility]: Dose Right [facility]: Teradose 4D [facility]: [employer] - The Simple, Fast and Elegant Tablet Sales App RADIATION DOSE: CT Rad equipment meets quality standard of care and radiation dose reduction techniq ues were employed. CTDIvol: 53.2 mGy. DLP: 2300 mGy-cm. mGy. LIMITATIONS: None. FINDINGS: VENTRICLES: Normal size and contour. CEREBRUM: No masses. No hemorrhage. No midline shift. No evidence for acute infarction. Normal gra y/white matter differentiation. No areas of low density in the white matter. CEREBELLUM: No masses. No hemorrhage. No alteration of density. No evidence for acute infarction. EXTRAAXIAL SPACES: No fluid collections. No masses. ORBITS AND GLOBE: No intra- or extraconal masses. Normal contour of globe without masses. CALVARIUM: No fracture. PARANASAL SINUSES: No fluid or mucosal thickening. SOFT TISSUES: No mass or hematoma. OTHER: No other significant finding. IMPRESSION: No acute intracranial pathology. EVIDENCE OF ACUTE STROKE: NO. COMMENT: Quality ID # [id number]: Final reports with documentation of one or more dose reduction techniques (e.g., Automated exposure control, adjustment of the mA and/or kV according to patient size, use of iterative reconstruction technique) TECHNICAL DOCUMENTATION: JOB ID: [id number] [employer]- All Rights Reserved Reading location - IP/workstation name: [email or web address]
[2019-04-29] MEDS ORDERED: ACETAMINOPHEN 325 MG TABLET PO PRN (13:47)
[2019-04-29] MEDS ORDERED: NORMAL SALINE 1000 ML 1,000 ML IV PRN (13:47)
[2019-04-29] MEDS ORDERED: GLUCAGON,HUMAN RECOMB 1 MG INJ IM PRN (13:57)
[2019-04-29] MEDS ORDERED: DEXTROSE 40% GEL 15 GM TUBE PO PRN ×2 (13:57)
[2019-04-29] MEDS ORDERED: DEXTROSE 50%-WATER 25 GM/50 ML DISP.SYRIN IV PRN ×2 (13:57)
[2019-04-29] MEDS ORDERED: GABAPENTIN 300 MG CAPSULE PO SCH (14:00)
[2019-04-29] MEDS ORDERED: NICOTINE 21 MG/24 HR PATCH.TD24 TD ONE (14:00)
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
--- NOTE | 2019-04-29 15:35 | PSYCHOLOGICAL NOTE ---
Psych Note - Psych Note Date seen by psych provider: 04/29/19 Time seen by psych provider: 15:00 Psych Note: Reason for Consult: AMS Patient is unable/unwilling to engage in evaluation. Patient just smiles and stares at clinician. Clinician notes some odd mouth movements that are repetitive. Clinician notes patient was seen in February of this year with recommendations to follow-up with neurology. Patient was also provided medication recommendations during the February evaluation, taking into consideration the concern of a possible neurodegenerative process indicated in her Head CT conducted 12/15/2018. Both recommendations and head CT results were forwarded to patient's outpatient mental health provider [facility] for continuity of care during that February visit; [facility] did not continue medication recommendations and restarted the patient on her previous medications Clinician contacted patient's pharmacies for active medications [facility] care Lyrica 75 mg twice daily Tramadol 50 mg 4 times daily as needed [facility] Buprenorphine transdermal patch 15 mcg weekly Realo on [place] Lipitor 10 mg daily baclofen 20 mg 3 times daily as needed Wellbutrin 150 mg every morning BuSpar 15 mg 3 times daily clonidine 0.1 mg twice daily Dicyclomine 20 mg 4 times daily as needed gabapentin 600 mg 3 times daily Zyprexa 2.5mg every morning and 5mg every night at bedtime Tizanidine 6mg 3 times daily as needed Trazodone 300 mg nightly Realo on [place] no prescriptions since June 2017 Diagnosis: 296.80 (F31.9) Unspecified Bipolar and Related Disorder by History per patient Hx of over medicating Hx medication overuse/misuse R/O 799.59 (R41.9) Unspecified Neurocognitive Disorder Medication recommendations made by the psychiatric medical provider, Dr. Awa MD., includes: Decrease Wellbutrin to 75MG daily for 10 days (WEENING OFF) Discontinue all other home psych meds: Klonopin, Zyprexa, Trazodone, Gabapentin, Tizanidine Add Depakote DR 250MG twice a day for mood stabilization Impression/Plan: Patient has been admitted as a medical patient. Patient will be reevaluated as it is unclear at this time if patient's presentation is due to her current medical issue, mental health, or substance misuse. Medication recommendations have been provided. Dr. lFores was consulted on the care and management of this patient; attending physician is in agreement with recommendations and disposition.
[2019-04-29] MEDS: INSULIN LISPRO 100 UNIT/ML 3 ML VIAL SUBCUT SCH ×2 (17:33→21:16)
--- NOTE | 2019-04-29 18:30 | RADIOLOGY REPORT (SQ) ---
EXAM DESCRIPTION: CAROTID DOPPLER COMPLETED DATE/TIME: 04/29/2019 6:15 pm REASON FOR STUDY: altered mental status COMPARISON: None. TECHNIQUE: Grayscale ultrasound, Doppler velocity and spectra, and color Doppler images acquired of the extra-cranial carotid and vertebral arteries. Images stored on PACS. LIMITATIONS: Patient unable to cooperate FINDINGS: RIGHT CAROTID CCA Velocities: Within normal limits. ICA Velocities Peak systolic 0.62 m/s. End diastolic 0.16 m/s. Proximal ICA/CCA peak systolic ratio 1.1. Soft plaque. LEFT CAROTID CCA Velocities: Within normal limits. ICA Velocities Peak systolic 1.25 m/s. End diastolic 0.38 m/s. Proximal ICA/CCA peak systolic ratio 2.6. Tortuous vessels. Soft plaque. No identified significant stenosis. VERTEBRAL ARTERIES: Antegrade flow. Normal waveforms. SUBCLAVIAN ARTERIES: No finding. OTHER: No other significant finding. IMPRESSION: No hemodynamically significant stenosis on the right. Velocities are suggestive of stenosis on the left, however no stenosis seen on color Doppler. RECOMMENDATION: Recommend verification study such as MRA or CTA. COMMENT: Quality ID #[id number]: Velocity criteria are extrapolated from the diameter data as defined by t he Society of Radiologists in Ultrasound Consensus Conference. Radiology 2003: 229; 340-346. TECHNICAL DOCUMENTATION: JOB ID: [id number] [employer]- All Rights Reserved Reading location - IP/workstation name: [email or web address]
--- NOTE | 2019-04-29 20:35 | EKG REPORT ---
SEVERITY:- OTHERWISE NORMAL ECG - SINUS TACHYCARDIA LVH : Confirmed by: Norris Hooker 29-Apr-2019 20:35:10
--- NOTE | 2019-04-29 20:35 | EKG REPORT ---
SEVERITY:- OTHERWISE NORMAL ECG - SINUS TACHYCARDIA : Confirmed by: Norris Hooker 29-Apr-2019 20:35:15
[2019-04-29] MEDS: ATORVASTATIN CALCIUM 10 MG TABLET PO SCH (21:18)
[2019-04-29] MEDS: FAMOTIDINE 20 MG TABLET PO SCH (21:18)
[2019-04-29] MEDS: DIVALPROEX SODIUM 250 MG TABLET.DR PO SCH (21:19)
[2019-04-29] MEDS: LORAZEPAM INJ 2 MG/1 ML VIAL IV PRN (23:02)
[2019-04-30] MEDS ORDERED: (PENDING PHARMACY ID) (Bupropion Hcl [Bupropion Xl] 150 MG) PO SCH (08:00)
--- NOTE | 2019-04-30 08:47 | PDOC PROGRESS REPORT ---
Subjective Progress Note for:: 04/30/19 Subjective:: 63 year old female we have diabetes mellitus hypertension smoker, anxiety depression bipolar disorder, osteoarthritis history of pancreatitis with stent placements, type 2 diabetes mellitus came to the emergency room with the neighbors found her in her confused state EMS was called and the patient was brought to the emergency room for further evaluation. Patient is unable to give me any history at all in the emergency room. She is laughing inappropriately unable to give her data but unable to communicate at all with me. The toxicology screen was negative CT head was negative chest x-ray was read to he has a leukocyte esterase with a WBC count 15,000. Medical consult was requested for altered mental status. 04/30/[id number]-irxr-old female admitted with questionable altered mental status in my opinion she has psychiatric problems psych evaluation was done. Around 6:55 PM yesterday the nurse Jacki called me told me that patient is complaining of homicidal suicidal thoughts. I requested for IVC papers and I requested the nurse to get in touch with psych. Patient is under one-to-one observation this morning. Patient is expressing desire to go home today. She is not giving the specific counselor about if he still having the homicidal thoughts. If necessary we will commit her and keep her in the hospital. Blood cultures came back positive for gram-negative rods to start on IV levo floxacillin 5 mg daily. Patient states she has MRIs done before yesterday MRI of the brain was ordered but was on hold because of the lack of information about the pancreatic stents she has before. Reason For Visit: ALTERED MENTAL STATUS Physical Exam Vital Signs: Temp Pulse Resp BP Pulse Ox 97.4 F 102 H 18 141/85 H 99 04/30/19 03:07 04/30/19 07:00 04/30/19 03:07 04/30/19 03:07 04/30/19 03:07 Intake & Output 04/29/19 04/30/19 05/01/19 06:59 06:59 06:59 Intake Total 2049 Output Total 1749 Balance 300 Weight 69 kg General appearance: PRESENT: no acute distress, cooperative Head exam: PRESENT: atraumatic Eye exam: PRESENT: PERRLA Mouth exam: PRESENT: moist, tongue midline Teeth exam: PRESENT: poor dentation Neck exam: ABSENT: carotid bruit, JVD, lymphadenopathy, thyromegaly Respiratory exam: PRESENT: decreased breath sounds GI/Abdominal exam: PRESENT: normal bowel sounds, soft. ABSENT: distended, guarding, mass, organolmegaly, rebound, tenderness Extremities exam: PRESENT: full ROM. ABSENT: calf tenderness, clubbing, pedal edema Neurological exam: PRESENT: alert, awake, oriented to person, oriented to place, oriented to time, oriented to situation, CN II-XII grossly intact. ABSENT: motor sensory deficit Psychiatric exam: PRESENT: agitated Results Laboratory Results: 04/29/19 09:40 04/29/19 09:40 04/29/19 04/29/19 04/29/19 09:40 09:40 10:18 WBC 15.2 H RBC 5.11 Hgb 15.7 H Hct 44.2 MCV 87 MCH 30.7 MCHC 35.5 RDW 13.9 Plt Count 404 Seg Neutrophils % 77.7 Lymphocytes % 14.9 Monocytes % 6.8 Eosinophils % 0.1 Basophils % 0.5 Absolute Neutrophils 11.8 H Absolute Lymphocytes 2.3 Absolute Monocytes 1.0 Absolute Eosinophils 0.0 Absolute Basophils 0.1 VBG pH VBG pCO2 VBG HCO3 VBG Base Excess Sodium 143.8 Potassium 4.1 Chloride 105 Carbon Dioxide 27 Anion Gap 12 BUN 13 Creatinine 0.83 Est GFR ( Amer) > 60 Est GFR (Non-Af Amer) > 60 Glucose 118 H Lactic Acid 1.5 Calcium 10.2 Total Bilirubin 1.0 AST 25 ALT 16 Alkaline Phosphatase 98 Ammonia Total Protein 8.2 Albumin 4.9 Amylase Lipase Urine Color Urine Appearance Urine pH Ur Specific [place] Urine Protein Urine Glucose (UA) Urine Ketones Urine Blood Urine Nitrite Ur Leukocyte Esterase Urine WBC (Auto) Urine RBC (Auto) 04/29/19 04/29/19 04/29/19 10:18 10:18 10:38 WBC RBC Hgb Hct MCV MCH MCHC RDW Plt Count Seg Neutrophils % Lymphocytes % Monocytes % Eosinophils % Basophils % Absolute Neutrophils Absolute Lymphocytes Absolute Monocytes Absolute Eosinophils Absolute Basophils VBG pH 7.42 VBG pCO2 41.7 VBG HCO3 26.1 VBG Base Excess 1.4 Sodium Potassium Chloride Carbon Dioxide Anion Gap BUN Creatinine Est GFR ( Amer) Est GFR (Non-Af Amer) Glucose Lactic Acid Calcium Total Bilirubin AST ALT Alkaline Phosphatase Ammonia < 8.7 L Total Protein Albumin Amylase 40 Lipase 36.4 Urine Color Urine Appearance Urine pH Ur Specific [place] Urine Protein Urine Glucose (UA) Urine Ketones Urine Blood Urine Nitrite Ur Leukocyte Esterase Urine WBC (Auto) Urine RBC (Auto) 04/29/19 04/29/19 11:00 17:12 WBC RBC Hgb Hct MCV MCH MCHC RDW Plt Count Seg Neutrophils % Lymphocytes % Monocytes % Eosinophils % Basophils % Absolute Neutrophils Absolute Lymphocytes Absolute Monocytes Absolute Eosinophils Absolute Basophils VBG pH VBG pCO2 VBG HCO3 VBG Base Excess Sodium Potassium Chloride Carbon Dioxide Anion Gap BUN Creatinine Est GFR ( Amer) Est GFR (Non-Af Amer) Glucose Lactic Acid Calcium Total Bilirubin AST ALT Alkaline Phosphatase Ammonia 10.5 Total Protein Albumin Amylase Lipase Urine Color YELLOW Urine Appearance SLIGHTLY-CLOUDY Urine pH 6.0 Ur Specific [place] 1.010 Urine Protein NEGATIVE Urine Glucose (UA) NEGATIVE Urine Ketones TRACE H Urine Blood MODERATE H Urine Nitrite POSITIVE H Ur Leukocyte Esterase TRACE H Urine WBC (Auto) 4 Urine RBC (Auto) 1 04/29/19 04/29/19 04/29/19 10:18 10:18 17:12 Creatine Kinase 123 193 H Troponin I < 0.012 04/29/19 04/30/19 04/30/19 17:12 00:43 00:43 Creatine Kinase 189 H Troponin I < 0.012 < 0.012 Impressions: Carotid Doppler Study 04/29/19 00:00 IMPRESSION: No hemodynamically significant stenosis on the right. Velocities are suggestive of stenosis on the left, however no stenosis seen on color Doppler. Chest X-Ray 04/29/19 11:13 IMPRESSION: Borderline cardiomegaly without pulmonary edema. Head CT 04/29/19 12:05 IMPRESSION: No acute intracranial pathology. EVIDENCE OF ACUTE STROKE: NO. Assessment and Plan - Diagnosis (1) Altered mental status Qualifiers: Altered mental status type: unspecified Qualified Code(s): R41.82 - Altered mental status, unspecified Is this a current diagnosis for this admission?: Yes Plan: 04/29/2019-patient is going to be admitted to the medical floor with altered mental status in my opinion after examining the patient looks to me pure psychiatric symptoms rather than altered mental status. Psych consult was requested. To restart her home medications. Started on Ativan 1 mg IV every 4 PRN for agitation. Placed on nicotine patch. Aspiration fall seizure precautions are requested. GI prophylaxis DVT prophylaxis was initiated. Head was negative urine drug screen is negative. 04/30/2019-patient admitted with altered mental status significant improvement in her mental status today. CT head was negative for acute pathology. MRI of the brain is on hold. Psych consult was requested. Patient had a one-to-one observation. I implemented psych recommendations. Blood cultures came back positive for gram-negative rods to start on IV levo floxacillin. (2) Essential (primary) hypertension Is this a current diagnosis for this admission?: No Plan: 04/29/2019-blood pressure today is 165/105. Is to start on hydralazine 10 mg IV every 4 PRN for systolic blood pressure more than 160. 04/30/2019-patient blood pressure today is 141/85. Relatively controlled. Presently on IV hydralazine 10 mg every 4 PRN for systolic blood pressure more than 150. (3) Bipolar disorder Qualifiers: Active/Remission status: currently active Current bipolar episode type: hypomanic Qualified Code(s): F31.0 - Bipolar disorder, current episode hypomanic Is this a current diagnosis for this admission?: No Plan: 04/29/2019-patient history of bipolar disorder plan is to restart her home medications psych consult was requested. 04/30/2019-as per psych recommendations patient is presently on Wellbutrin 75 mg p.o. daily and Depakote ER to 50 mg p.o. twice daily. Other medications patient is taking at home are on hold. (4) Diabetes Is this a current diagnosis for this admission?: No Plan: 04/29/2019-patient has history of type 2 diabetes mellitus started on insulin sliding scale and diabetic diet. Will go to check for hemoglobin A1c. 04/30/2019-patient has history of type 2 diabetes mellitus latest blood sugar is 73 and hemoglobin A1c is pending patient is presently on insulin sliding scale. - Time Time Spent with patient: 25-34 minutes Smoking Cessation Education: over 10 minutes Medications reviewed and adjusted accordingly: Yes Anticipated discharge: Home
[2019-04-30 09:03] LABS: ABSOLUTE BASOPHILS # (AUTO) 0.1 10^3/uL (0.0-0.2); ABSOLUTE LYMPHOCYTES (AUTO) 2.1 10^3/uL (0.5-4.7); ABSOLUTE MONOCYTES (AUTO) 0.7 10^3/uL (0.1-1.4); ABSOLUTE NEUT (AUTO) 5.7 10^3/uL (1.7-8.2); BASOPHILS % (AUTO) 0.7 % (0-2); EOSINOPHILS % (AUTO) 0.4 % (0-6); HEMATOCRIT 40.1 % (36.0-47.0); HEMOGLOBIN 14.2 g/dL (12.0-15.5); LYMPHOCYTES % (AUTO) 24.6 % (13-45); MEAN CORPUSCULAR HEMOGLOBIN 30.4 pg (27.0-33.4); MEAN CORPUSCULAR HGB CONC 35.4 g/dL (32.0-36.0); MEAN CORPUSCULAR VOLUME 86 fl (80-97); MONOCYTES % (AUTO) 7.7 % (3-13); PLATELET COUNT 351 10^3/uL (150-450); RED BLOOD COUNT 4.67 10^6/uL (3.72-5.28); RED CELL DISTRIBUTION WIDTH 13.7 % (11.5-14.0); SEGMENTED NEUTROPHILS % (AUTO) 66.6 % (42-78); TOTAL CELLS COUNTED % (AUTO) 100 %; WHITE BLOOD COUNT 8.6 10^3/uL (4.0-10.5)
[2019-04-30 09:26] LABS: ALANINE AMINOTRANSFERASE 24 U/L (9-52); ALKALINE PHOSPHATASE 86 U/L (38-126); ANION GAP 9 (5-19); ASPARTATE AMINO TRANSFERASE 25 U/L (14-36); BILIRUBIN,DIRECT 0.3 mg/dL (0.0-0.4); BLOOD UREA NITROGEN 13 mg/dL (7-20); CALCIUM 9.4 mg/dL (8.4-10.2); CARBON DIOXIDE 23 mmol/L (22-30); CHLORIDE 107 mmol/L (98-107); CHOLESTEROL 157.25 mg/dL (0-200); GLUCOSE 153 mg/dL (75-110); POTASSIUM 3.7 mmol/L (3.6-5.0); TRIGLYCERIDES 162 mg/dL (<150)
[2019-04-30] MEDS: BUPROPION HCL 75 MG TABLET PO SCH (09:27)
[2019-04-30] MEDS: ESTROGENS,CONJUGATED 0.3 MG TABLET PO SCH (09:27)
[2019-04-30] MEDS: DIVALPROEX SODIUM 250 MG TABLET.DR PO SCH ×2 (09:27→22:29)
[2019-04-30] MEDS: LEVOFLOXACIN 500 MG/D5W RTU 500 MG/100 ML RTUPB IV SCH (09:27)
[2019-04-30] MEDS: FAMOTIDINE 20 MG TABLET PO SCH ×2 (09:27→22:29)
[2019-04-30 09:37] LABS: DIRECT LDL 93 mg/dL (<100)
[2019-04-30] MEDS: ENOXAPARIN SODIUM INJ 40 MG/0.4 ML DISP.SYRIN SUBCUT SCH (09:38)
[2019-04-30 09:40] LABS: VLDL CHOLESTEROL 32.4 mg/dL (10-31)
[2019-04-30] MEDS: INSULIN LISPRO 100 UNIT/ML 3 ML VIAL SUBCUT SCH ×4 (10:47→22:24)
[2019-04-30] MEDS: LORAZEPAM INJ 2 MG/1 ML VIAL IV PRN (10:53)
[2019-04-30] MEDS ORDERED: DIVALPROEX SODIUM 250 MG TABLET.DR PO SCH (11:00)
[2019-04-30] MEDS: HALOPERIDOL LACTATE INJ 5 MG/1 ML VIAL IV PRN ×2 (14:58→22:29)
[2019-04-30] MEDS ORDERED: ' PO SCH (22:00)
[2019-04-30] MEDS: ATORVASTATIN CALCIUM 10 MG TABLET PO SCH (22:29)
--- NOTE | 2019-05-01 11:06 | PDOC PROGRESS REPORT ---
Subjective Progress Note for:: 05/01/19 Subjective:: 63 year old female we have diabetes mellitus hypertension smoker, anxiety depression bipolar disorder, osteoarthritis history of pancreatitis with stent placements, type 2 diabetes mellitus came to the emergency room with the neighbors found her in her confused state EMS was called and the patient was brought to the emergency room for further evaluation. Patient is unable to give me any history at all in the emergency room. She is laughing inappropriately unable to give her data but unable to communicate at all with me. The toxicology screen was negative CT head was negative chest x-ray was read to he has a leukocyte esterase with a WBC count 15,000. Medical consult was requested for altered mental status. 04/30/[id number]-evgj-old female admitted with questionable altered mental status in my opinion she has psychiatric problems psych evaluation was done. Around 6:55 PM yesterday the nurse Jacki called me told me that patient is complaining of homicidal suicidal thoughts. I requested for IVC papers and I requested the nurse to get in touch with psych. Patient is under one-to-one observation this morning. Patient is expressing desire to go home today. She is not giving the specific counselor about if he still having the homicidal thoughts. If necessary we will commit her and keep her in the hospital. Blood cultures came back positive for gram-negative rods to start on IV levo floxacillin 5 mg daily. Patient states she has MRIs done before yesterday MRI of the brain was ordered but was on hold because of the lack of information about the pancreatic stents she has before. 05/01/[id number]-uppt-old female came in with altered mental status most likely secondary to underlying psychiatric problems. No acute events in the last 24 hours. Blood cultures positive for gram-negative rods and urine culture is positive for E. coli and Klebsiella. Patient is presently on IV levo floxacillin. No acute events in the last 24 hours. Reason For Visit: ALTERED MENTAL STATUS Physical Exam Vital Signs: Temp Pulse Resp BP Pulse Ox 97.4 F 85 20 157/95 H 98 05/01/19 07:53 05/01/19 07:53 05/01/19 07:53 05/01/19 07:53 05/01/19 07:53 Intake & Output 04/30/19 05/01/19 05/02/19 06:59 06:59 06:59 Intake Total 2050 3322 Output Total 1750 1325 Balance 300 1996 Weight 69 kg 70.5 kg General appearance: PRESENT: no acute distress Head exam: PRESENT: atraumatic Eye exam: PRESENT: PERRLA Mouth exam: PRESENT: moist, tongue midline Teeth exam: PRESENT: poor dentation Neck exam: ABSENT: carotid bruit, JVD, lymphadenopathy, thyromegaly Respiratory exam: PRESENT: clear to auscultation guillaume. ABSENT: rales, rhonchi, wheezes Cardiovascular exam: PRESENT: RRR. ABSENT: diastolic murmur, rubs, systolic murmur GI/Abdominal exam: PRESENT: normal bowel sounds, soft. ABSENT: distended, guarding, mass, organolmegaly, rebound, tenderness Rectal exam: PRESENT: deferred Extremities exam: PRESENT: full ROM. ABSENT: calf tenderness, clubbing, pedal edema Neurological exam: PRESENT: alert, awake, oriented to person, oriented to place, oriented to time, oriented to situation, CN II-XII grossly intact. ABSENT: motor sensory deficit Psychiatric exam: PRESENT: appropriate affect, normal mood. ABSENT: homicidal ideation, suicidal ideation Results Laboratory Results: 04/30/19 07:44 04/30/19 07:44 04/29/19 11:00 Catheterized Urine Urine Culture - Final Escherichia Coli Klebsiella Pneumoniae 04/29/19 04/29/19 04/29/19 10:18 10:18 17:12 Creatine Kinase 123 193 H Troponin I < 0.012 NT-Pro-B Natriuret Pep 04/29/19 04/30/19 04/30/19 17:12 00:43 00:43 Creatine Kinase 189 H Troponin I < 0.012 < 0.012 NT-Pro-B Natriuret Pep 04/30/19 07:44 Creatine Kinase Troponin I NT-Pro-B Natriuret Pep 325 Impressions: Carotid Doppler Study 04/29/19 00:00 IMPRESSION: No hemodynamically significant stenosis on the right. Velocities are suggestive of stenosis on the left, however no stenosis seen on color Doppler. Chest X-Ray 04/29/19 11:13 IMPRESSION: Borderline cardiomegaly without pulmonary edema. Head CT 04/29/19 12:05 IMPRESSION: No acute intracranial pathology. EVIDENCE OF ACUTE STROKE: NO. Assessment and Plan - Diagnosis (1) Altered mental status Qualifiers: Altered mental status type: unspecified Qualified Code(s): R41.82 - Altered mental status, unspecified Is this a current diagnosis for this admission?: Yes Plan: 04/29/2019-patient is going to be admitted to the medical floor with altered mental status in my opinion after examining the patient looks to me pure psychiatric symptoms rather than altered mental status. Psych consult was requested. To restart her home medications. Started on Ativan 1 mg IV every 4 PRN for agitation. Placed on nicotine patch. Aspiration fall seizure precautions are requested. GI prophylaxis DVT prophylaxis was initiated. Head was negative urine drug screen is negative. 04/30/2019-patient admitted with altered mental status significant improvement in her mental status today. CT head was negative for acute pathology. MRI of the brain is on hold. Psych consult was requested. Patient had a one-to-one observation. I implemented psych recommendations. Blood cultures came back positive for gram-negative rods to start on IV levo floxacillin. 05/01/[id number]-shbz-old female mated for altered mental status CT head was negative. Patient is recovering well. No complications during this hospital stay. (2) Essential (primary) hypertension Is this a current diagnosis for this admission?: No Plan: 04/29/2019-blood pressure today is 165/105. Is to start on hydralazine 10 mg IV every 4 PRN for systolic blood pressure more than 160. 04/30/2019-patient blood pressure today is 141/85. Relatively controlled. Presently on IV hydralazine 10 mg every 4 PRN for systolic blood pressure more than 150. 05/01/2019-blood pressure today is 145/75. To discontinue IV fluids start back on her home clonidine from today. (3) Bipolar disorder Qualifiers: Active/Remission status: currently active Current bipolar episode type: hypomanic Qualified Code(s): F31.0 - Bipolar disorder, current episode hypomanic Is this a current diagnosis for this admission?: No Plan: 04/29/2019-patient history of bipolar disorder plan is to restart her home medications psych consult was requested. 04/30/2019-as per psych recommendations patient is presently on Wellbutrin 75 mg p.o. daily and Depakote ER to 50 mg p.o. twice daily. Other medications patient is taking at home are on hold. 05/01/2019-patient has history of bipolar disorder psych consult was done the recommendation is to continue Wellbutrin started on Depakote plan is to continue with his medications. (4) Diabetes Is this a current diagnosis for this admission?: No Plan: 04/29/2019-patient has history of type 2 diabetes mellitus started on insulin sliding scale and diabetic diet. Will go to check for hemoglobin A1c. 04/30/2019-patient has history of type 2 diabetes mellitus latest blood sugar is 73 and hemoglobin A1c is pending patient is presently on insulin sliding scale. 05/01/2019-patient has history of type 2 diabetes mellitus hemoglobin A1c is 5.1 plan is to discontinue the sliding scale and put her on cardiac diet. - Time Time Spent with patient: 25-34 minutes Medications reviewed and adjusted accordingly: Yes Anticipated discharge: Home
[2019-05-01] MEDS: LEVOFLOXACIN 500 MG/D5W RTU 500 MG/100 ML RTUPB IV SCH (11:25)
[2019-05-01] MEDS: ENOXAPARIN SODIUM INJ 40 MG/0.4 ML DISP.SYRIN SUBCUT SCH (11:26)
[2019-05-01] MEDS: ESTROGENS,CONJUGATED 0.3 MG TABLET PO SCH (11:26)
[2019-05-01] MEDS: BUPROPION HCL 75 MG TABLET PO SCH (11:26)
[2019-05-01] MEDS: FAMOTIDINE 20 MG TABLET PO SCH ×2 (11:26→21:08)
[2019-05-01] MEDS: DIVALPROEX SODIUM 250 MG TABLET.DR PO SCH ×2 (11:26→21:07)
[2019-05-01] MEDS: CLONIDINE HCL 0.1 MG TABLET PO SCH (12:00)
[2019-05-01] MEDS: INSULIN LISPRO 100 UNIT/ML 3 ML VIAL SUBCUT SCH (12:03)
[2019-05-01] MEDS: ONDANSETRON HCL INJ/PF 4 MG/2 ML SDV IV PRN (14:08)
[2019-05-01] MEDS: LORAZEPAM INJ 2 MG/1 ML VIAL IV PRN (16:14)
[2019-05-01] MEDS: ATORVASTATIN CALCIUM 10 MG TABLET PO SCH (21:07)
[2019-05-01] MEDS: HALOPERIDOL LACTATE INJ 5 MG/1 ML VIAL IV PRN (21:10)
[2019-05-02] MEDS: CLONIDINE HCL 0.1 MG TABLET PO SCH (00:07)
--- NOTE | 2019-05-02 08:54 | PDOC PROGRESS REPORT ---
Subjective Progress Note for:: 05/02/19 Subjective:: 63 year old female we have diabetes mellitus hypertension smoker, anxiety depression bipolar disorder, osteoarthritis history of pancreatitis with stent placements, type 2 diabetes mellitus came to the emergency room with the neighbors found her in her confused state EMS was called and the patient was brought to the emergency room for further evaluation. Patient is unable to give me any history at all in the emergency room. She is laughing inappropriately unable to give her data but unable to communicate at all with me. The toxicology screen was negative CT head was negative chest x-ray was read to he has a leukocyte esterase with a WBC count 15,000. Medical consult was requested for altered mental status. 04/30/[id number]-khkk-old female admitted with questionable altered mental status in my opinion she has psychiatric problems psych evaluation was done. Around 6:55 PM yesterday the nurse Jacki called me told me that patient is complaining of homicidal suicidal thoughts. I requested for IVC papers and I requested the nurse to get in touch with psych. Patient is under one-to-one observation this morning. Patient is expressing desire to go home today. She is not giving the specific counselor about if he still having the homicidal thoughts. If necessary we will commit her and keep her in the hospital. Blood cultures came back positive for gram-negative rods to start on IV levo floxacillin 5 mg daily. Patient states she has MRIs done before yesterday MRI of the brain was ordered but was on hold because of the lack of information about the pancreatic stents she has before. 05/01/[id number]-wydv-old female came in with altered mental status most likely secondary to underlying psychiatric problems. No acute events in the last 24 hours. Blood cultures positive for gram-negative rods and urine culture is positive for E. coli and Klebsiella. Patient is presently on IV levo floxacillin. No acute events in the last 24 hours. 05/02/[id number]-nnaj-old female with multiple medical problems hospitalists especially psychiatric problems admitted with altered mental status stroke was ruled out. Altered mental status most likely secondary to misuse of prescription medications. She is taking too many trazodone's at home. Presently under involuntary commitment. No acute events in the last 24 hours and afebrile. Patient is complaining of stomach cramps this morning agreed to take tramadol on as-needed basis. Blood pressure dropped to 97/50 last night as per the patient's request clonidine was restarted yesterday plan is to hold the clonidine from today. Reason For Visit: ALTERED MENTAL STATUS Physical Exam Vital Signs: Temp Pulse Resp BP Pulse Ox 97.7 F 82 14 135/78 H 98 05/02/19 07:50 05/02/19 07:50 05/02/19 07:50 05/02/19 07:50 05/02/19 07:50 Intake & Output 05/01/19 05/02/19 05/03/19 06:59 06:59 06:59 Intake Total 3322 5591 Output Total 1325 2900 Balance 1996 269 Weight 70.5 kg 72 kg General appearance: PRESENT: no acute distress, cooperative Head exam: PRESENT: atraumatic Eye exam: PRESENT: PERRLA Mouth exam: PRESENT: moist, tongue midline Teeth exam: PRESENT: poor dentation Neck exam: ABSENT: carotid bruit, JVD, lymphadenopathy, thyromegaly Respiratory exam: PRESENT: clear to auscultation guillaume. ABSENT: rales, rhonchi, wheezes Cardiovascular exam: PRESENT: RRR. ABSENT: diastolic murmur, rubs, systolic murmur GI/Abdominal exam: PRESENT: normal bowel sounds, soft. ABSENT: distended, guarding, mass, organolmegaly, rebound, tenderness Rectal exam: PRESENT: deferred Extremities exam: PRESENT: full ROM. ABSENT: calf tenderness, clubbing, pedal edema Neurological exam: PRESENT: alert, awake, oriented to person, oriented to place, oriented to time, oriented to situation, CN II-XII grossly intact. ABSENT: motor sensory deficit Psychiatric exam: PRESENT: appropriate affect, normal mood. ABSENT: homicidal ideation, suicidal ideation Results Laboratory Results: 04/30/19 07:44 04/30/19 07:44 04/29/19 11:00 Catheterized Urine Urine Culture - Final Escherichia Coli Klebsiella Pneumoniae 04/29/19 04/29/19 04/29/19 10:18 10:18 17:12 Creatine Kinase 123 193 H Troponin I < 0.012 NT-Pro-B Natriuret Pep 04/29/19 04/30/19 04/30/19 17:12 00:43 00:43 Creatine Kinase 189 H Troponin I < 0.012 < 0.012 NT-Pro-B Natriuret Pep 04/30/19 07:44 Creatine Kinase Troponin I NT-Pro-B Natriuret Pep 325 Impressions: Carotid Doppler Study 04/29/19 00:00 IMPRESSION: No hemodynamically significant stenosis on the right. Velocities are suggestive of stenosis on the left, however no stenosis seen on color Doppler. Chest X-Ray 04/29/19 11:13 IMPRESSION: Borderline cardiomegaly without pulmonary edema. Head CT 04/29/19 12:05 IMPRESSION: No acute intracranial pathology. EVIDENCE OF ACUTE STROKE: NO. Assessment and Plan - Diagnosis (1) Altered mental status Qualifiers: Altered mental status type: unspecified Qualified Code(s): R41.82 - Altered mental status, unspecified Is this a current diagnosis for this admission?: Yes Plan: 04/29/2019-patient is going to be admitted to the medical floor with altered mental status in my opinion after examining the patient looks to me pure psychiatric symptoms rather than altered mental status. Psych consult was requested. To restart her home medications. Started on Ativan 1 mg IV every 4 PRN for agitation. Placed on nicotine patch. Aspiration fall seizure precautions are requested. GI prophylaxis DVT prophylaxis was initiated. Head was negative urine drug screen is negative. 04/30/2019-patient admitted with altered mental status significant improvement in her mental status today. CT head was negative for acute pathology. MRI of the brain is on hold. Psych consult was requested. Patient had a one-to-one observation. I implemented psych recommendations. Blood cultures came back positive for gram-negative rods to start on IV levo floxacillin. 05/01/[id number]-pspy-old female mated for altered mental status CT head was negative. Patient is recovering well. No complications during this hospital stay. 05/02/[id number]-wugv-old female admitted for altered mental status most likely secondary to polypharmacy. Symptoms are resolving. Psych consult was requested still an IVC commitment. Patient is also found to be positive for blood cultures and urine cultures presently on levo floxacillin. Cultures are positive for Klebsiella and E. coli. (2) Essential (primary) hypertension Is this a current diagnosis for this admission?: No Plan: 04/29/2019-blood pressure today is 165/105. Is to start on hydralazine 10 mg IV every 4 PRN for systolic blood pressure more than 160. 04/30/2019-patient blood pressure today is 141/85. Relatively controlled. Presently on IV hydralazine 10 mg every 4 PRN for systolic blood pressure more than 150. 05/01/2019-blood pressure today is 145/75. To discontinue IV fluids start back on her home clonidine from today. 05/02/2019-patient's blood pressure this morning is 130/70. Clonidine was restarted yesterday 0.1 mg p.o. every 12 hours as per the patient's request but the blood pressure dropped to 97/40 and 96/50 last night clonidine is on hold from last night. To discontinue clonidine from now. (3) Diabetes Is this a current diagnosis for this admission?: No Plan: 04/29/2019-patient has history of type 2 diabetes mellitus started on insulin sliding scale and diabetic diet. Will go to check for hemoglobin A1c. 04/30/2019-patient has history of type 2 diabetes mellitus latest blood sugar is 73 and hemoglobin A1c is pending patient is presently on insulin sliding scale. 05/01/2019-patient has history of type 2 diabetes mellitus hemoglobin A1c is 5.1 plan is to discontinue the sliding scale and put her on cardiac diet. 05/02/2019-patient has history of type 2 diabetes mellitus diet-controlled hemoglobin A1c is 5.1 blood sugars are stable plan is to continue the present ma nagement. (4) Sepsis Qualifiers: Sepsis type: sepsis due to unspecified organism Qualified Code(s): A41.9 - Sepsis, unspecified organism Is this a current diagnosis for this admission?: Yes Plan: 05/02/2019-patient came into sepsis and a urine cultures blood cultures were positive for Klebsiella pneumonia and E. coli think the patient is meeting the criteria for sepsis. - Time Time Spent with patient: 25-34 minutes Smoking Cessation Education: over 10 minutes Medications reviewed and adjusted accordingly: Yes Anticipated discharge: Home
[2019-05-02] MEDS ORDERED: TRAMADOL HCL 50 MG TABLET PO PRN (09:02)
[2019-05-02] MEDS: ENOXAPARIN SODIUM INJ 40 MG/0.4 ML DISP.SYRIN SUBCUT SCH (09:24)
[2019-05-02] MEDS: BUPROPION HCL 75 MG TABLET PO SCH (09:24)
[2019-05-02] MEDS: LORAZEPAM INJ 2 MG/1 ML VIAL IV PRN ×2 (09:24→19:20)
[2019-05-02] MEDS: FAMOTIDINE 20 MG TABLET PO SCH ×2 (09:24→22:03)
[2019-05-02] MEDS: ONDANSETRON HCL INJ/PF 4 MG/2 ML SDV IV PRN ×2 (09:24→20:20)
[2019-05-02] MEDS: LEVOFLOXACIN 500 MG/D5W RTU 500 MG/100 ML RTUPB IV SCH (09:24)
[2019-05-02] MEDS: DIVALPROEX SODIUM 250 MG TABLET.DR PO SCH ×2 (09:25→22:03)
[2019-05-02] MEDS: ESTROGENS,CONJUGATED 0.3 MG TABLET PO SCH (10:37)
[2019-05-02] MEDS: HALOPERIDOL LACTATE INJ 5 MG/1 ML VIAL IV PRN (22:03)
[2019-05-02] MEDS: ATORVASTATIN CALCIUM 10 MG TABLET PO SCH (22:03)
[2019-05-03 08:31] VITALS: BP 146/79
[2019-05-03] MEDS: BUPROPION HCL 75 MG TABLET PO SCH (09:31)
[2019-05-03] MEDS: FAMOTIDINE 20 MG TABLET PO SCH (09:31)
[2019-05-03] MEDS: LEVOFLOXACIN 500 MG/D5W RTU 500 MG/100 ML RTUPB IV SCH (09:32)
[2019-05-03] MEDS: DIVALPROEX SODIUM 250 MG TABLET.DR PO SCH (09:32)
[2019-05-03] MEDS: ESTROGENS,CONJUGATED 0.3 MG TABLET PO SCH (09:32)
[2019-05-03] MEDS: ENOXAPARIN SODIUM INJ 40 MG/0.4 ML DISP.SYRIN SUBCUT SCH (09:32)
[2019-05-03] MEDS: LORAZEPAM INJ 2 MG/1 ML VIAL IV PRN (09:41)
--- NOTE | 2019-05-03 10:14 | PDOC DISCHARGE SUMMARY ---
General - Admit/Disc Date/PCP Admission Date/Primary Care Provider: 04/29/19 14:46 RACHEL WILKES MD Discharge Date: 05/03/19 - Discharge Diagnosis (1) Altered mental status Is this a current diagnosis for this admission?: Yes Summary: 04/29/2019-patient is going to be admitted to the medical floor with altered mental status in my opinion after examining the patient looks to me pure psychiatric symptoms rather than altered mental status. Psych consult was requested. To restart her home medications. Started on Ativan 1 mg IV every 4 PRN for agitation. Placed on nicotine patch. Aspiration fall seizure precautions are requested. GI prophylaxis DVT prophylaxis was initiated. Head was negative urine drug screen is negative. 04/30/2019-patient admitted with altered mental status significant improvement in her mental status today. CT head was negative for acute pathology. MRI of the brain is on hold. Psych consult was requested. Patient had a one-to-one observation. I implemented psych recommendations. Blood cultures came back positive for gram-negative rods to start on IV levo floxacillin. 05/01/[id number]-emsy-old female mated for altered mental status CT head was negative. Patient is recovering well. No complications during this hospital stay. 05/02/[id number]-szuz-old female admitted for altered mental status most likely secondary to polypharmacy. Symptoms are resolving. Psych consult was requested still an IVC commitment. Patient is also found to be positive for blood cultures and urine cultures presently on levo floxacillin. Cultures are pos itive for Klebsiella and E. coli. 05/03/[id number]-opjp-old female admitted for altered mental status CT head was negative. Unable to do the MRI because of the questionable pancreatic stents. In my opinion most likely secondary to polysubstance abuse. Patient today alert awake oriented communicating well. IVC was rescinded yesterday. In my opinion patient stable enough to go home. (2) Essential (primary) hypertension Is this a current diagnosis for this admission?: No Summary: 04/29/2019-blood pressure today is 165/105. Is to start on hydralazine 10 mg IV every 4 PRN for systolic blood pressure more than 160. 04/30/2019-patient blood pressure today is 141/85. Relatively controlled. Presently on IV hydralazine 10 mg every 4 PRN for systolic blood pressure more than 150. 05/01/2019-blood pressure today is 145/75. To discontinue IV fluids start back on her home clonidine from today. 05/02/2019-patient's blood pressure this morning is 130/70. Clonidine was restarted yesterday 0.1 mg p.o. every 12 hours as per the patient's request but the blood pressure dropped to 97/40 and 96/50 last night clonidine is on hold from last night. To discontinue clonidine from now. 05/03/2019-patient blood pressure today is 46/79. We restarted her clonidine yesterday and blood pressure dropped to systolic 90. Patient is advised about low-salt diet and she was strongly advised to follow-up with primary care physician for further management of the blood pressure as an outpatient. (3) Diabetes Is this a current diagnosis for this admission?: No Summary: 04/29/2019-patient has history of type 2 diabetes mellitus started on insulin sliding scale and diabetic diet. Will go to check for hemoglobin A1c. 04/30/2019-patient has history of type 2 diabetes mellitus latest blood sugar is 73 and hemoglobin A1c is pending patient is presently on insulin sliding scale. 05/01/2019-patient has history of type 2 diabetes mellitus hemoglobin A1c is 5.1 plan is to discontinue the sliding scale and put her on cardiac diet. 05/02/2019-patient has history of type 2 diabetes mellitus diet-controlled hemoglobin A1c is 5.1 blood sugars are stable plan is to continue the present management. 05/03/2019-patient has history of type 2 diabetes mellitus on diet control. Hemoglobin A1c is 5.1. Blood sugars are stable. (4) Sepsis Is this a current diagnosis for this admission?: Yes Summary: 05/02/2019-patient came into sepsis and a urine cultures blood cultures were positive for Klebsiella pneumonia and E. coli think the patient is meeting the criteria for sepsis. 05/03/2019-patient admitted with altered mental status, RUEL, elevated WBC count and blood cultures are positive meeting the criteria for sepsis. Patient is going home on levo floxacillin 500 mg p.o. daily for 1 week. - Additional Information Resuscitation Status: Full Code Discharge Activity: Activity As Tolerated Prescriptions: Bupropion HCl [Wellbutrin 75 Mg Tablet] 75 mg PO DAILY 10 Days #10 tablet Divalproex Sodium [Depakote] 250 mg PO BID 30 Days #60 tablet.dr Home Medications: Atorvastatin Calcium [Lipitor 10 mg Tablet] 10 mg PO DAILY 04/29/19 Esomeprazole Magnesium [Nexium] 20 mg PO Q6AM 04/29/19 Estrogens,Conjugated [Premarin 0.3 mg Tablet] 0.3 mg PO DAILY 04/29/19 Gabapentin [Neurontin] 600 mg PO Q8 04/29/19 Pregabalin [Lyrica 75 mg Capsule] 75 mg PO Q12 04/29/19 Promethazine HCl [Phenergan 25 mg Tablet] 25 mg PO Q8HP PRN 04/29/19 Tramadol HCl [Ultram 50 mg Tablet] 50 mg PO QIDP PRN 04/29/19 Bupropion HCl [Wellbutrin 75 Mg Tablet] 75 mg PO DAILY 10 Days #10 tablet 05/03/19 Divalproex Sodium [Depakote] 250 mg PO BID 30 Days #60 tablet. 05/03/19 History of Present Illness History of Present Illness: TOÑITO KUMAR is a 63 year old female we have diabetes mellitus hypertension smoker, anxiety depression bipolar disorder, osteoarthritis history of pancreatitis with stent placements, type 2 diabetes mellitus came to the emergency room with the neighbors found her in her confused state EMS was called and the patient was brought to the emergency room for further evaluation. Patient is unable to give me any history at all in the emergency room. She is laughing inappropriately unable to give her data but unable to communicate at all with me. The toxicology screen was negative CT head was negative chest x- ray was read to he has a leukocyte esterase with a WBC count 15,000. Medical consult was requested for altered mental status. Hospital Course Hospital Course: 63 feMale admitted with altered mental status most likely secondary to Ms. management of the psychiatric medications by the patient. During the hospital stay urine culture shows E. coli and Klebsiella pneumonia and blood cultures shows monroy tenia organisms. Sensitive to 2 levo floxacillin. Patient was under involuntary commitment until yesterday. As per psych recommendations involuntary commitment was rescinded patient was going home on Wellbutrin 75 mg p.o. daily for 10 days and Depakote 2 5 mg p.o. twice daily. Patient was strongly advised to follow-up with psych in less than a week. Physical Exam Vital Signs: Temp Pulse Resp BP Pulse Ox 97.7 F 65 17 146/79 H 94 05/03/19 08:16 07/29/19 08:16 05/03/19 08:16 05/03/19 08:16 05/03/19 08:16 Intake & Output 05/02/19 05/03/19 05/04/19 06:59 06:59 06:59 Intake Total 5535 2217 Output Total 2907 3510 Balance 2691 -2283 Weight 72 kg 72.2 kg General appearance: PRESENT: mild distress Head exam: PRESENT: atraumatic Eye exam: PRESENT: PERRLA Mouth exam: PRESENT: dry mucosa Teeth exam: PRESENT: poor dentation Neck exam: ABSENT: carotid bruit, JVD, lymphadenopathy, thyromegaly Respiratory exam: PRESENT: decreased breath sounds Cardiovascular exam: PRESENT: RRR. ABSENT: diastolic murmur, rubs, systolic murmur GI/Abdominal exam: PRESENT: normal bowel sounds, soft. ABSENT: distended, guarding, mass, organolmegaly, rebound, tenderness Rectal exam: PRESENT: deferred Extremities exam: PRESENT: full ROM. ABSENT: calf tenderness, clubbing, pedal edema Neurological exam: PRESENT: alert, awake, oriented to person, oriented to place, oriented to time, oriented to situation, CN II-XII grossly intact. ABSENT: motor sensory deficit Psychiatric exam: PRESENT: appropriate affect, normal mood. ABSENT: homicidal ideation, suicidal ideation Results Laboratory Results: 04/30/19 07:44 04/30/19 07:44 04/29/19 12:23 Blood Blood Culture - Final [employer] 04/29/19 04/29/19 04/29/19 10:18 10:18 17:12 Creatine Kinase 123 193 H Troponin I < 0.012 NT-Pro-B Natriuret Pep 04/29/19 04/30/19 04/30/19 17:12 00:43 00:43 Creatine Kinase 189 H Troponin I < 0.012 < 0.012 NT-Pro-B Natriuret Pep 04/30/19 07:44 Creatine Kinase Troponin I NT-Pro-B Natriuret Pep 325 Impressions: Carotid Doppler Study 04/29/19 00:00 IMPRESSION: No hemodynamically significant stenosis on the right. Velocities are suggestive of stenosis on the left, however no stenosis seen on color Doppler. Chest X-Ray 04/29/19 11:13 IMPRESSION: Borderline cardiomegaly without pulmonary edema. Head CT 04/29/19 12:05 IMPRESSION: No acute intracranial pathology. EVIDENCE OF ACUTE STROKE: NO. Qualifiers - * PATIENT BEING DISCHARGED WITH ANY OF THE FOLLOWING DIAGNOSIS: No VTE patient discharged on overlapping Therapy?: No Acute Heart Failure - Is this a Heart Failure Patient?: No
[2019-05-04] MEDS ORDERED: LEVOFLOXACIN 500 MG TABLET PO SCH (10:00)
== END 2019-05-03 12:44 | disposition home or self-care (01) | DRG 872 ==
LOC: ER 10:06 → EH 14:46 → 3W 18:09
PROVIDERS: ADMIT Internal Medicine; ATTEND Internal Medicine
DX: A41.9 Sepsis, unspecified organism (principal); F31.0 Bipolar disorder, current episode hypomanic; N39.0 Urinary tract infection, site not specified; R41.82 Altered mental status, unspecified; E11.9 Type 2 diabetes mellitus without complications; B96.20 Unspecified Escherichia coli [E. coli] as the cause of diseases classified elsewhere; B96.1 Klebsiella pneumoniae [K. pneumoniae] as the cause of diseases classified elsewhere; T50.905A Adverse effect of unspecified drugs, medicaments and biological substances, initial encounter; I10 Essential (primary) hypertension; F41.9 Anxiety disorder, unspecified; E78.5 Hyperlipidemia, unspecified; K21.9 Gastro-esophageal reflux disease without esophagitis; M15.9 Polyosteoarthritis, unspecified; F43.10 Post-traumatic stress disorder, unspecified; F17.210 Nicotine dependence, cigarettes, uncomplicated; E78.00 Pure hypercholesterolemia, unspecified; Z91.410 Personal history of adult physical and sexual abuse; Z87.820 Personal history of traumatic brain injury; Z79.899 Other long term (current) drug therapy; Z95.5 Presence of coronary angioplasty implant and graft
CPT/HCPCS: 36415; 51701; 70450; 71045; 80053; 80061; 80164; 80307; 81001; 82140; 82150; 82550; 82803; 82962; 83036; 83605; 83690; 83735; 83880; 84443; 84484; 85025; 85610; 87040; 87077; 87086; 87088; 87186; 93005; 93010; 93880; 96361; 96365; 99285; J0696; J1630; J1650; J1956; J2060; J2405; J3490; J7030

== ENCOUNTER 2019-05-05 17:47 | Emergency (ER) | payer MEDICARE, MEDICAID ==
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
--- NOTE | 2019-05-05 19:04 | RADIOLOGY REPORT (SQ) ---
EXAM DESCRIPTION: CT HEAD WITHOUT COMPLETED DATE/TIME: 05/05/2019 6:50 pm REASON FOR STUDY: AMS COMPARISON: 04/29/2019 TECHNIQUE: Axial images acquired through the brain without intravenous contrast. Images reviewed wi th bone, brain and subdural windows. Additional sagittal and coronal reconstructions were generated. Images stored on PACS. All CT scanners at this facility use dose modulation, iterative reconstruction, and/or weight based d osing when appropriate to reduce radiation dose to as low as reasonably achievable (ALARA). [facility]: Dose Right [facility]: CareDose [facility]: Dose Right [facility]: Teradose 4D [facility]: [employer] RADIATION DOSE: CT Rad equipment meets quality standard of care and radiation dose reduction techniq ues were employed. CTDIvol: 53.2 mGy. DLP: 991 mGy-cm. mGy. LIMITATIONS: None. FINDINGS: VENTRICLES: Normal size and contour. CEREBRUM: No masses. No hemorrhage. No midline shift. No evidence for acute infarction. Normal gra y/white matter differentiation. No areas of low density in the white matter. CEREBELLUM: No masses. No hemorrhage. No alteration of density. No evidence for acute infarction. EXTRAAXIAL SPACES: No fluid collections. No masses. ORBITS AND GLOBE: No intra- or extraconal masses. Normal contour of globe without masses. CALVARIUM: No fracture. PARANASAL SINUSES: No fluid or mucosal thickening. SOFT TISSUES: No mass or hematoma. OTHER: No other significant finding. IMPRESSION: NORMAL BRAIN CT WITHOUT CONTRAST. EVIDENCE OF ACUTE STROKE: NO. COMMENT: Quality ID # [id number]: Final reports with documentation of one or more dose reduction techniques (e.g., Automated exposure control, adjustment of the mA and/or kV according to patient size, use of iterative reconstruction technique) TECHNICAL DOCUMENTATION: JOB ID: [id number] [employer]- All Rights Reserved Reading location - IP/workstation name: [email or web address]
--- NOTE | 2019-05-05 19:18 | RADIOLOGY REPORT (SQ) ---
EXAM DESCRIPTION: CHEST SINGLE VIEW COMPLETED DATE/TIME: 05/05/2019 6:47 pm REASON FOR STUDY: ams COMPARISON: 04/29/2019 TECHNIQUE: Single frontal radiographic view of the chest acquired. NUMBER OF VIEWS: One view. LIMITATIONS: None. FINDINGS: LUNGS AND PLEURA: No pneumothorax. No consolidation or pleural effusion. MEDIASTINUM AND HILAR STRUCTURES: Stable. HEART AND VASCULAR STRUCTURES: Stable. BONES: No acute findings. HARDWARE: None in the chest. OTHER: No other significant finding. IMPRESSION: NO ACUTE FINDINGS. TECHNICAL DOCUMENTATION: JOB ID: [id number] [place]-72 2010 [employer]- All Rights Reserved Reading location - IP/workstation name: [email or web address]
[2019-05-05 19:31] LABS: ABSOLUTE BASOPHILS # (AUTO) 0.1 10^3/uL (0.0-0.2); ABSOLUTE MONOCYTES (AUTO) 0.9 10^3/uL (0.1-1.4); ABSOLUTE NEUT (AUTO) 8.3 10^3/uL (1.7-8.2); BASOPHILS % (AUTO) 1.2 % (0-2); EOSINOPHILS % (AUTO) 0.3 % (0-6); HEMATOCRIT 43.3 % (36.0-47.0); HEMOGLOBIN 14.8 g/dL (12.0-15.5); MEAN CORPUSCULAR HEMOGLOBIN 29.8 pg (27.0-33.4); MEAN CORPUSCULAR HGB CONC 34.2 g/dL (32.0-36.0); MEAN CORPUSCULAR VOLUME 87 fl (80-97); MONOCYTES % (AUTO) 7.6 % (3-13); PLATELET COUNT 437 10^3/uL (150-450); RED BLOOD COUNT 4.97 10^6/uL (3.72-5.28); RED CELL DISTRIBUTION WIDTH 13.8 % (11.5-14.0); SEGMENTED NEUTROPHILS % (AUTO) 66.9 % (42-78); TOTAL CELLS COUNTED % (AUTO) 100 %; WHITE BLOOD COUNT 12.4 10^3/uL (4.0-10.5)
[2019-05-05 19:49] LABS: ALANINE AMINOTRANSFERASE 23 U/L (9-52); ALBUMIN 4.7 g/dL (3.5-5.0); ALKALINE PHOSPHATASE 86 U/L (38-126); ANION GAP 12 (5-19); ASPARTATE AMINO TRANSFERASE 40 U/L (14-36); BILIRUBIN,DIRECT 0.4 mg/dL (0.0-0.4); BILIRUBIN,TOTAL 0.7 mg/dL (0.2-1.3); BLOOD UREA NITROGEN 18 mg/dL (7-20); CARBON DIOXIDE 27 mmol/L (22-30); CHLORIDE 100 mmol/L (98-107); CREATINE KINASE 909 U/L (30-135); GLUCOSE 112 mg/dL (75-110); POTASSIUM 4.8 mmol/L (3.6-5.0); TOTAL PROTEIN 7.8 g/dL (6.3-8.2)
[2019-05-05 19:50] LABS: ACETAMINOPHEN < 10 ug/mL (10-30); ALCOHOL < 10 mg/dL (NONE DETECTED); SALICYLATE < 1.0 mg/dL (2.0-20.0)
[2019-05-05 19:59] LABS: CREATINE KINASE MB 3.98 ng/mL (<4.55)
[2019-05-05 20:00] LABS: TROPONIN I < 0.012 ng/mL
[2019-05-05 22:01] LABS: APPEARANCE,URINE SLIGHTLY-CLOUDY; BILIRUBIN,URINE NEGATIVE (NEGATIVE); GLUCOSE, URINE NEGATIVE (NEGATIVE); KETONES,URINE 20 mg/dL (NEGATIVE); LEUKOCYTE ESTERASE,URINE NEGATIVE (NEGATIVE); NITRITE,URINE NEGATIVE (NEGATIVE); PROTEIN,URINE NEGATIVE (NEGATIVE); URINE SPECIFIC GRAVITY 1.023; UROBILINOGEN,URINE NEGATIVE mg/dL (<2.0)
[2019-05-05 22:02] LABS: COLOR,URINE YELLOW
[2019-05-05 22:15] LABS: URINE AMPHETAMINES SCREEN NEGATIVE; URINE BARBITURATES SCREEN NEGATIVE; URINE BENZODIAZEPINES SCREEN NEGATIVE; URINE COCAINE SCREEN NEGATIVE; URINE MARIJUANA (THC) SCREEN NEGATIVE; URINE METHADONE SCREEN NEGATIVE; URINE PHENCYCLIDINE SCREEN NEGATIVE
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
[2019-05-06] MEDS ORDERED: LORAZEPAM 1 MG TABLET PO ONE (04:43)
--- NOTE | 2019-05-06 09:57 | ER Document Report ---
Doctor's Note Notes: 05/06/19 09:56 Rounds: Chart reviewed and patient interviewed. Patient is being evaluated for altered mental status. She says that she is had problems getting her medications straightened out. She was just in the hospital here for 5 days for a UTI with positive blood cultures. She is currently on an antibiotic. Patient has been to this emergency department 5 times in the past month. Lab studies were positive for opioids. Note CPK of 909. Vital signs are all normal. Patient seems to be oriented and answers questions appropriately. Somewhat shaky. Patient appears to be medically stable for transfer or discharge. Mihaela Kelley MD
--- NOTE | 2019-05-06 10:48 | PSYCHOLOGICAL NOTE ---
Psych Note - Psych Note Date seen by psych provider: 05/06/19 Psych Note: Reason for Consult: OVERDOSE Patient is a 63-year-old female is brought in due to some altered mental status. She was found by her roommate apparently surrounded by her pills and not acting appropriately. Polysubstance abuse Unspecified bipolar per history provided by patient Medication recommendations per [facility]'s contracted psychiatrist Dr. melgar MDR as follows Zyprexa Zydis 2.5 mg twice daily BuSpar 5 mg twice daily Impression\plan: Patient is recommended for IVC. There is significant concern that the patient has had a significant increase in recidivism for altered mental status and accidental overdose. Patient is demonstrating no insight, judgment or impulse control in regards to her current mental health and substance abuse. Patient has resented to [facility] altered mental status after overdose 5 times in less than 30 days. Patient is currently a danger to herself. Dr. Flores was consulted to care management of this patient; attending physicians in agreement with recommendations and disposition.
[2019-05-06] MEDS ORDERED: LEVOFLOXACIN 500 MG TABLET PO SCH (12:15)
[2019-05-06 15:31] VITALS: BP 129/62
--- NOTE | 2019-05-06 18:18 | EKG REPORT ---
SEVERITY:- OTHERWISE NORMAL ECG - SINUS TACHYCARDIA : Confirmed by: Natividad Yusuf MD 06-May-2019 18:17:46
== END 2019-05-06 15:34 ==
LOC: ER 17:47
DX: T50.901A Poisoning by unspecified drugs, medicaments and biological substances, accidental (unintentional), initial encounter (principal); N39.0 Urinary tract infection, site not specified; A49.8 Other bacterial infections of unspecified site; F31.9 Bipolar disorder, unspecified; F20.9 Schizophrenia, unspecified; Z79.899 Other long term (current) drug therapy; G25.1 Drug-induced tremor; T43.595A Adverse effect of other antipsychotics and neuroleptics, initial encounter; R41.82 Altered mental status, unspecified; R00.0 Tachycardia, unspecified; I10 Essential (primary) hypertension; F17.200 Nicotine dependence, unspecified, uncomplicated; E11.9 Type 2 diabetes mellitus without complications; Z88.5 Allergy status to narcotic agent; Z88.8 Allergy status to other drugs, medicaments and biological substances; Z88.1 Allergy status to other antibiotic agents
CPT/HCPCS: 93005; 99285; 36415; 82553; 80307 ×4; 82550; 85025; 80053; 81001; 84484; 71045; 70450; 93010; A9270 ×2

== ENCOUNTER 2019-05-14 18:27 | Emergency (ER) | payer MEDICARE, MEDICAID ==
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
--- NOTE | 2019-05-14 19:41 | RADIOLOGY REPORT (SQ) ---
EXAM DESCRIPTION: CT HEAD WITHOUT COMPLETED DATE/TIME: 05/05/2019 05/14/2019 7:22 pm REASON FOR STUDY: mental status change COMPARISON: 05/05/2019 TECHNIQUE: Axial images acquired through the brain without intravenous contrast. Images reviewed wit h bone, brain and subdural windows. Images stored on PACS. All CT scanners at this facility use dose modulation, iterative reconstruction, and/or weight based d osing when appropriate to reduce radiation dose to as low as reasonably achievable (ALARA). [facility]: Dose Right [facility]: CareDose [facility]: Dose Right [facility]: Teradose 4D [facility]: Smart [employer] [facility] [employer] RADIATION DOSE: CT Rad equipment meets quality standard of care and radiation dose reduction techniq ues were employed. CTDIvol: 53.2 mGy. DLP: 964 mGy-cm.. LIMITATIONS: None. FINDINGS: VENTRICLES: Normal size and contour. CEREBRUM: No masses. No hemorrhage. No midline shift. Age appropriate white matter. No evidence for a cute infarction. CEREBELLUM: No masses. No hemorrhage. No alteration of density. No evidence for acute infarction. EXTRA-AXIAL SPACES: No fluid collections. ORBITS AND GLOBE: No intra- or extraconal masses. Normal contour of globe without masses. CALVARIUM: No fracture. PARANASAL SINUSES: No fluid or mucosal thickening. SOFT TISSUES: No mass or hematoma. OTHER: No other significant finding. IMPRESSION: NO ACUTE INTRACRANIAL FINDINGS. EVIDENCE OF ACUTE STROKE: NO. TECHNICAL DOCUMENTATION: JOB ID: [id number] [place]-72 Quality ID # [id number]: Final reports with documentation of one or more dose reduction techniques (e.g., Au tomated exposure control, adjustment of the mA and/or kV according to patient size, use of iterative reconstruction technique) 2010 [employer]- All Rights Reserved Reading location - IP/workstation name: [email or web address]
[2019-05-14 19:47] LABS: ABSOLUTE LYMPHOCYTES (AUTO) 1.2 10^3/uL (0.5-4.7); ABSOLUTE MONOCYTES (AUTO) 0.3 10^3/uL (0.1-1.4); ABSOLUTE NEUT (AUTO) 7.4 10^3/uL (1.7-8.2); BASOPHILS % (AUTO) 0.1 % (0-2); HEMATOCRIT 38.2 % (36.0-47.0); LYMPHOCYTES % (AUTO) 13.8 % (13-45); MEAN CORPUSCULAR HEMOGLOBIN 29.5 pg (27.0-33.4); MEAN CORPUSCULAR HGB CONC 33.9 g/dL (32.0-36.0); MEAN CORPUSCULAR VOLUME 87 fl (80-97); MONOCYTES % (AUTO) 3.3 % (3-13); PLATELET COUNT 314 10^3/uL (150-450); RED BLOOD COUNT 4.39 10^6/uL (3.72-5.28); RED CELL DISTRIBUTION WIDTH 13.8 % (11.5-14.0); SEGMENTED NEUTROPHILS % (AUTO) 82.8 % (42-78); TOTAL CELLS COUNTED % (AUTO) 100 %
[2019-05-14 19:48] LABS: ACETAMINOPHEN < 10 ug/mL (10-30); ALBUMIN 3.9 g/dL (3.5-5.0); ALCOHOL < 10 mg/dL (NONE DETECTED); ALKALINE PHOSPHATASE 74 U/L (38-126); ANION GAP 9 (5-19); ASPARTATE AMINO TRANSFERASE 34 U/L (14-36); BILIRUBIN,DIRECT 0.3 mg/dL (0.0-0.4); BILIRUBIN,TOTAL 0.5 mg/dL (0.2-1.3); BLOOD UREA NITROGEN 6 mg/dL (7-20); CALCIUM 9.5 mg/dL (8.4-10.2); CARBON DIOXIDE 31 mmol/L (22-30); CHLORIDE 103 mmol/L (98-107); GLUCOSE 127 mg/dL (75-110); POTASSIUM 4.1 mmol/L (3.6-5.0); SALICYLATE < 1.0 mg/dL (2.0-20.0); TOTAL PROTEIN 6.8 g/dL (6.3-8.2)
--- NOTE | 2019-05-14 19:49 | RADIOLOGY REPORT (SQ) ---
EXAM DESCRIPTION: CT CERVICAL SPINE WITHOUT COMPLETED DATE/TIME: 05/14/2019 7:22 pm REASON FOR STUDY: Trauma COMPARISON: 08/23/2016 TECHNIQUE: Axial images acquired through the cervical spine without intravenous contrast. Images re viewed with lung, soft tissue and bone windows. Reconstructed coronal and sagittal MPR images review ed. Images stored on PACS. All CT scanners at this facility use dose modulation, iterative reconstruction, and/or weight based d osing when appropriate to reduce radiation dose to as low as reasonably achievable (ALARA). [facility]: Dose Right [facility]: CareDose [facility]: Dose Right [facility]: Teradose 4D [facility]: [employer] RADIATION DOSE: CT Rad equipment meets quality standard of care and radiation dose reduction techniq ues were employed. CTDIvol: 19.9 mGy. DLP: 379 mGy-cm. mGy. LIMITATIONS: None. FINDINGS: ALIGNMENT: Anatomic. MINERALIZATION: Normal. VERTEBRAL BODIES: No fractures or dislocation. DISCS: Multilevel disc space narrowing with osteophytes. FACETS, LATERAL MASSES, POSTERIOR ELEMENTS: Facet arthropathy. No fractures. No dislocation. No ac [place] findings. HARDWARE: None in the spine. VISUALIZED RIBS: No fractures. LUNG APICES AND SOFT TISSUES: No acute findings. Similar Thyroid nodules. OTHER: No other significant finding. IMPRESSION: CHRONIC DEGENERATIVE CHANGES. NO ACUTE FINDINGS. TECHNICAL DOCUMENTATION: JOB ID: [id number] [place]-72 Quality ID # [id number]: Final reports with documentation of one or more dose reduction techniques (e.g., Au tomated exposure control, adjustment of the mA and/or kV according to patient size, use of iterative reconstruction technique) 2010 [employer]- All Rights Reserved Reading location - IP/workstation name: [email or web address]
[2019-05-14] MEDS ORDERED: ZIPRASIDONE MESYLATE INJ/PF 20 MG SDV IM ONE (22:08)
[2019-05-14] MEDS ORDERED: LORAZEPAM INJ 2 MG/1 ML VIAL IM ONE (22:08)
[2019-05-14 23:39] LABS: APPEARANCE,URINE CLEAR; BILIRUBIN,URINE NEGATIVE (NEGATIVE); COLOR,URINE YELLOW; GLUCOSE, URINE NEGATIVE (NEGATIVE); KETONES,URINE TRACE mg/dL (NEGATIVE); LEUKOCYTE ESTERASE,URINE NEGATIVE (NEGATIVE); NITRITE,URINE NEGATIVE (NEGATIVE); PROTEIN,URINE NEGATIVE (NEGATIVE); URINE SPECIFIC GRAVITY 1.006; UROBILINOGEN,URINE NEGATIVE mg/dL (<2.0)
[2019-05-14 23:54] LABS: URINE AMPHETAMINES SCREEN NEGATIVE; URINE BARBITURATES SCREEN NEGATIVE; URINE BENZODIAZEPINES SCREEN UNCONFIRMED POSITIVE; URINE COCAINE SCREEN NEGATIVE; URINE MARIJUANA (THC) SCREEN NEGATIVE; URINE METHADONE SCREEN NEGATIVE; URINE PHENCYCLIDINE SCREEN NEGATIVE
--- NOTE | 2019-05-15 09:25 | EKG REPORT ---
SEVERITY:- NORMAL ECG - SINUS RHYTHM : Confirmed by: Johnathon Smith MD 15-May-2019 09:25:28
--- NOTE | 2019-05-15 10:22 | ER Document Report ---
Doctor's Note Notes: 05/15/19 10:21 I have evaluated this pt. this am and she has no c/o at t his time. She feels all of her needs arer being met and her physical exam is normal. She is awaiting disposition per mental health.
--- NOTE | 2019-05-15 13:23 | PSYCHOLOGICAL NOTE ---
Psych Note - Psych Note Date seen by psych provider: 05/15/19 Psych Note: Reason for consult: AMS Substance abuse; benzodiazepine Medication recommendations per [facility]'s contracted psychiatrist Dr. Awa WOOD are as follows Haldol 5 mg IM every 8 hours Cogentin 1 mg daily Impression\plan: Patient is currently under the influence. Patient has a long history of polysubstance abuse identified by the patient during previous evaluations. Patient has been seen multiple times over the last month and a half for altered mental status: Specifically last 2 were within 24 to 48 hours after being released from a medical facility. Patient is noted to have a prescription for Suboxone weekly patch however does not have a patch on her. patient is also positive for benzodiazepines which she does not have a prescription for. There is concern the patient is selling her prescription to obtain benzodiazepines. Concerns and recommendations will be communicated with her providers for continuity of care. Patient is clear from acute psychiatric services and can be discharged once no longer under the influence. Dr. Flores was consulted to care management of this patient; attending physicians in agreement with recommendations and disposition.
[2019-05-15] MEDS: HALOPERIDOL LACTATE INJ 5 MG/1 ML VIAL IM SCH ×2 (13:58→21:02)
[2019-05-16] MEDS: HALOPERIDOL LACTATE INJ 5 MG/1 ML VIAL IM SCH (06:02)
[2019-05-16] MEDS ORDERED: DIPHENHYDRAMINE HCL 50 MG/ML VIAL IV ONE (06:06)
[2019-05-16] MEDS ORDERED: BENZTROPINE MESYLATE 1 MG TABLET PO SCH (10:00)
--- NOTE | 2019-05-16 10:09 | ER Document Report ---
Doctor's Note Notes: 05/16/19 10:07 Rounds: Chart reviewed and patient interviewed. Patient is awake with eyes open with shaking of her right leg and patient stares blankly ahead and does not converse or answer questions or follow commands. Patient has been here previously for mental condition and I have been involved in her care previously. On this visit, she has a history of bipolar disorder and she is here for polysubstance abuse. Lab studies are positive for benzos. Vital signs are all normal. Heart rate earlier was 104 but currently is 94. Patient appears to be medically stable for transfer or discharge. Mihaela Kelley MD
--- NOTE | 2019-05-16 10:38 | PSYCHOLOGICAL NOTE ---
Psych Note - Psych Note Date seen by psych provider: 05/16/19 Time seen by psych provider: 09:27 - Re evaluation attempt and then discussion with nurse from [id number]. Psych Note: Presenting Problem: 24 Hour IVC, AMS, psychosis, overuse of medication (benzodiazepine) with Hx of same. Today patient was lying in bed, flat on back, had a blank stare, when first greeted with Good Morning replies "Good Morning" in soft mumbled tone, did not answer any other questions except when asked if she still resides with her grandson Lester and if it is common for her to be shaky she said "m hmm." Observed her shaking/trembling in hands and legs, it seemed when this clinician talked it worsened and when nobody else was in the room she stopped. Medical staff noted the same thing and first things this morning patient was not shaking. Attending nurse identified patient was admi nistered Haldol last night and then "she started acting weird, had the fixated look, had some shaking" and so Haldol was not administered this morning. Diagnosis: AMS Hx of over medicating Hx medication overuse/misuse 296.80 (F31.9) Unspecified Bipolar and Related Disorder by History per patient R/O 799.59 (R41.9) Unspecified Neurocognitive Disorder Medication recommendations made by the psychiatric medical provider, Dr. Awa MD., includes: Discontinue Haldol 5MG twice a day for psychosis Discontinue Cogentin 1MG daily to curb tremor side effects often associated with antipsychotic medications Add Depakote DR 250MG twice a day for mood stabilization Add Clonidine 0.1 Patch wvery 24 hours for calming effect Impression/Plan: Recommendation to hold patient through afternoon after administration of Depakote and Clonidine Patch for mood stabilization/calming effect given patient presentation of blank/fixated stare, not carrying on d ialogue conversation (has been able to on the past), Hx of overusing prescribed medication which typically sedates her or makes her manic and Hx of Bipolar. Patient has been seen numerous times this year with presentation of sedation, manuela and at times psychosis. Consulted with Dr. Flores regarding the management and care of patient. ED Physician in agreement with recommendations. At 1545 patient still presenting the same way as morning. She has not eaten. She has laid in bed, the same position, with blank and fixated stare, minimal verbal response and no dialogue conversation. She has taken her medications and drank when given by the nurse. Recommendation to complete full IVC with plan to discharge tomorrow if improved. Lester Giles, did come visit patient at 1622.
[2019-05-16] MEDS: DIVALPROEX SODIUM 250 MG TABLET.DR PO SCH ×2 (11:06→18:11)
[2019-05-16] MEDS: CLONIDINE 0.1 MG/24 HR PATCH.TDWK TD SCH (11:06)
[2019-05-16] MEDS ORDERED: LORAZEPAM 1 MG TABLET PO ONE (21:22)
--- NOTE | 2019-05-16 21:23 | ER Document Report ---
Doctor's Note Notes: 05/16/19 21:22 Nurse notified me that patient was becoming more agitated. I have ordered 1 mg of Ativan.
[2019-05-17] MEDS: DIVALPROEX SODIUM 250 MG TABLET.DR PO SCH (09:11)
[2019-05-17] MEDS: CLONIDINE 0.1 MG/24 HR PATCH.TDWK TD SCH (09:12)
[2019-05-17 09:44] VITALS: BP 139/92
[2019-05-17] MEDS ORDERED: MAG HYDROX/AL HYDROX/SIMETH SUSP 30 ML UDCUP PO ONE (10:08)
[2019-05-17] MEDS ORDERED: PANTOPRAZOLE SODIUM 40 MG TABLET.DR PO ONE (10:10)
--- NOTE | 2019-05-17 10:53 | ER Document Report ---
Doctor's Note Notes: 05/17/19 10:38 Rounds: Chart reviewed and patient reviewed. Patient has a history of bipolar disorder. Here because she is agitated and shaking. Patient looks much better today! She is ambulating without difficulty. She is talking and answering questions and is completely oriented. She is shaky as if nervous, and was given 1 mg of Ativan during the switch adjuster for anxiety. Patient agrees that she is doing much better than yesterday. Vital signs are normal. Afebrile. Admission lab work showed positive for benzodiazepines on the drug screen. Patient appears to be medically stable for transfer or discharge. Mihaela Kelley MD
== END 2019-05-17 11:30 | disposition home or self-care (01) ==
LOC: ER 18:27
DX: F29 Unspecified psychosis not due to a substance or known physiological condition (principal); Z86.59 Personal history of other mental and behavioral disorders; R58 Hemorrhage, not elsewhere classified; F41.9 Anxiety disorder, unspecified; M47.9 Spondylosis, unspecified; I10 Essential (primary) hypertension; E11.9 Type 2 diabetes mellitus without complications; Z78.1 Physical restraint status; Z88.5 Allergy status to narcotic agent; Z88.8 Allergy status to other drugs, medicaments and biological substances; Z88.1 Allergy status to other antibiotic agents
CPT/HCPCS: 93005; 99285; 96372; 36415; 82962; 80307 ×4; 85025; 80053; 81001; 70450; 72125; 93010; L0120; A9270 ×4; J1200; J1630; J2060; J3486; J3490 ×3

== ENCOUNTER 2019-06-01 03:54 | Emergency (ER) | payer MEDICARE, MEDICAID ==
[2019-06-01 05:05] LABS: ABSOLUTE EOSINOPHILS # (AUTO) 0.1 10^3/uL (0.0-0.6); ABSOLUTE MONOCYTES (AUTO) 0.5 10^3/uL (0.1-1.4); ABSOLUTE NEUT (AUTO) 6.7 10^3/uL (1.7-8.2); BASOPHILS % (AUTO) 0.6 % (0-2); EOSINOPHILS % (AUTO) 0.7 % (0-6); HEMATOCRIT 32.5 % (36.0-47.0); HEMOGLOBIN 11.4 g/dL (12.0-15.5); LYMPHOCYTES % (AUTO) 11.6 % (13-45); MEAN CORPUSCULAR HEMOGLOBIN 30.8 pg (27.0-33.4); MEAN CORPUSCULAR VOLUME 88 fl (80-97); MONOCYTES % (AUTO) 6.5 % (3-13); PLATELET COUNT 289 10^3/uL (150-450); RED BLOOD COUNT 3.68 10^6/uL (3.72-5.28); RED CELL DISTRIBUTION WIDTH 14.6 % (11.5-14.0); SEGMENTED NEUTROPHILS % (AUTO) 80.6 % (42-78); TOTAL CELLS COUNTED % (AUTO) 100 %; WHITE BLOOD COUNT 8.4 10^3/uL (4.0-10.5)
[2019-06-01 05:12] LABS: APPEARANCE,URINE CLEAR; BILIRUBIN,URINE NEGATIVE (NEGATIVE); COLOR,URINE YELLOW; GLUCOSE, URINE NEGATIVE (NEGATIVE); KETONES,URINE TRACE mg/dL (NEGATIVE); LEUKOCYTE ESTERASE,URINE NEGATIVE (NEGATIVE); NITRITE,URINE NEGATIVE (NEGATIVE); PROTEIN,URINE NEGATIVE (NEGATIVE); UROBILINOGEN,URINE NEGATIVE mg/dL (<2.0)
[2019-06-01 05:27] LABS: ALBUMIN 3.4 g/dL (3.5-5.0); ALKALINE PHOSPHATASE 58 U/L (38-126); ANION GAP 5 (5-19); ASPARTATE AMINO TRANSFERASE 22 U/L (14-36); BILIRUBIN,DIRECT 0.3 mg/dL (0.0-0.4); BILIRUBIN,TOTAL 0.5 mg/dL (0.2-1.3); BLOOD UREA NITROGEN 12 mg/dL (7-20); CALCIUM 8.8 mg/dL (8.4-10.2); CARBON DIOXIDE 31 mmol/L (22-30); CHLORIDE 100 mmol/L (98-107); GLUCOSE 124 mg/dL (75-110); POTASSIUM 4.1 mmol/L (3.6-5.0)
[2019-06-01 05:37] LABS: ACETAMINOPHEN < 10 ug/mL (10-30); ALCOHOL < 10 mg/dL (NONE DETECTED); SALICYLATE < 1.0 mg/dL (2.0-20.0)
[2019-06-01 05:39] LABS: URINE AMPHETAMINES SCREEN NEGATIVE; URINE BARBITURATES SCREEN NEGATIVE; URINE BENZODIAZEPINES SCREEN UNCONFIRMED POSITIVE; URINE COCAINE SCREEN NEGATIVE; URINE MARIJUANA (THC) SCREEN NEGATIVE; URINE METHADONE SCREEN NEGATIVE; URINE PHENCYCLIDINE SCREEN NEGATIVE
--- NOTE | 2019-06-01 07:04 | EKG REPORT ---
SEVERITY:- NORMAL ECG - SINUS RHYTHM : Confirmed by: Johnathon Smith MD 01-Jun-2019 07:02:55
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
[2019-06-01] MEDS ORDERED: NALOXONE HCL INJ/PF 0.4 MG/1 ML SDV IV ONE (07:48)
[2019-06-01] MEDS ORDERED: NALOXONE HCL INJ 2 MG/2 ML DISP.SYRIN IV ONE (09:13)
--- NOTE | 2019-06-01 10:35 | RADIOLOGY REPORT (SQ) ---
EXAM DESCRIPTION: CHEST SINGLE VIEW COMPLETED DATE/TIME: 06/01/2019 10:17 am REASON FOR STUDY: Multiple substance overdose COMPARISON: 05/05/2019 EXAM PARAMETERS: NUMBER OF VIEWS: One view. TECHNIQUE: Single frontal radiographic view of the chest acquired. RADIATION DOSE: NA LIMITATIONS: None. FINDINGS: LUNGS AND PLEURA: No opacities, masses or pneumothorax. No pleural effusion. MEDIASTINUM AND HILAR STRUCTURES: No masses. Contour normal. HEART AND VASCULAR STRUCTURES: Heart normal in size. Normal vasculature. BONES: No acute findings. Unchanged widening at the left acromioclavicular joint, likely prior injur y related. HARDWARE: None in the chest. OTHER: No other significant finding. IMPRESSION: No evidence of acute cardiopulmonary process. TECHNICAL DOCUMENTATION: JOB ID: [id number] [employer]- All Rights Reserved Reading location - IP/workstation name: [email or web address]
[2019-06-01 12:16] LABS: CREATINE KINASE 176 U/L (30-135)
[2019-06-01] MEDS ORDERED: DEXTROSE 5%-LACTATED RINGERS 1,000 ML IV ONE ×2 (14:12→23:11)
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
--- NOTE | 2019-06-01 21:27 | ER Document Report ---
Doctor's Note Notes: 06/01/19 21:27 Recheck patient just now. She is resting comfortably in the bed sleeping. She was easily arousable. He states she has no complaints at this time. Vital signs are unremarkable. Lungs were clear to aspiration bilaterally heart was regular and rhythm.
[2019-06-01] MEDS ORDERED: LORAZEPAM INJ 2 MG/1 ML VIAL IV ONE (23:11)
[2019-06-01] MEDS ORDERED: TRAZODONE HCL 50 MG TABLET PO ONE (23:51)
[2019-06-02] MEDS ORDERED: GABAPENTIN 400 MG CAPSULE ONE (00:19)
[2019-06-02] MEDS ORDERED: GABAPENTIN 100 MG CAPSULE ONE (00:19)
[2019-06-02] MEDS ORDERED: ACETAMINOPHEN 325 MG TABLET PO ONE (08:58)
[2019-06-02] MEDS: GABAPENTIN 300 MG CAPSULE PO SCH ×3 (09:03→17:22)
--- NOTE | 2019-06-02 10:37 | ER Document Report ---
Doctor's Note Notes: 06/02/19 10:35 Rounds: Chart reviewed and patient interviewed. Patient is being evaluated for altered mental status with a history of bipolar disorder and possibly overdosed. When she arrived, she had to be restrained. Now, patient is complaining of severe pain in her right foot. Says she fell and injured it. I can find no record of any x-rays of her foot being taken here in the last month. We will x- ray her foot. It looks normal to my exam. There is no swelling. Good circulation and pulses in the toes and feet. Vital signs are all essentially normal. Lab studies were normal except for being positive opioids on her drug screen. She was also positive for benzos, but EMS had given her some benzos. Patient appears to be medically stable for transfer or discharge. Mihaela Kelley MD
--- NOTE | 2019-06-02 11:16 | RADIOLOGY REPORT (SQ) ---
EXAM DESCRIPTION: FOOT RIGHT COMPLETE COMPLETED DATE/TIME: 06/02/2019 11:08 am REASON FOR STUDY: Complains of pain in right foot, says she fell COMPARISON: None. NUMBER OF VIEWS: Three views. TECHNIQUE: AP, lateral and oblique without weight bearing radiographic images acquired of the right foot. LIMITATIONS: None. FINDINGS: MINERALIZATION: Normal. BONES: No acute fracture or dislocation. No worrisome bone lesions. No significant osteophytes. JOINTS: No erosions. No triny-articular osteopenia. No chondrocalcinosis. SOFT TISSUES: No swelling. No calcifications. OTHER: No other significant finding. IMPRESSION: NEGATIVE STUDY OF THE RIGHT FOOT. NO EXPLANATION FOR PAIN. TECHNICAL DOCUMENTATION: JOB ID: [id number] [employer]- All Rights Reserved Reading location - IP/workstation name: [email or web address]
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
[2019-06-02] MEDS: BUSPIRONE HCL 10 MG TABLET PO SCH ×2 (11:46→17:22)
[2019-06-02] MEDS: DIVALPROEX SODIUM 250 MG TAB.SR.24H PO SCH ×2 (11:46→17:22)
[2019-06-02] MEDS ORDERED: NALOXONE HCL INJ 2 MG/2 ML DISP.SYRIN IV ONE (11:58)
--- NOTE | 2019-06-02 20:26 | ER Document Report ---
Doctor's Note Notes: 06/02/19 20:24 Nursing staff approached me concerned that patient had fallen out of bed. They did witness the fall on camera. Patient was leaning over the bed really trying to close her door when she fell forward. She held onto the railing and slowly lowered herself onto the floor. She did not hit her head. She did not land abruptly. Patient has no complaints of pain currently. She has no long bone deformity and has normal range of motion of her shoulders, elbows, wrists, knees and hips. No further imaging needed at this time.
[2019-06-02] MEDS ORDERED: GABAPENTIN 300 MG CAPSULE PO ONE (23:10)
[2019-06-03] MEDS: ACETAMINOPHEN 325 MG TABLET PO PRN ×2 (01:20→05:52)
[2019-06-03] MEDS: GABAPENTIN 300 MG CAPSULE PO SCH ×3 (05:51→22:25)
[2019-06-03] MEDS: BUSPIRONE HCL 10 MG TABLET PO SCH ×2 (09:02→17:08)
[2019-06-03] MEDS: DIVALPROEX SODIUM 250 MG TAB.SR.24H PO SCH ×2 (09:03→17:08)
--- NOTE | 2019-06-03 10:19 | ER Document Report ---
Doctor's Note Notes: 06/03/19 10:16 Rounds: Chart reviewed and patient interviewed. Patient looks much better today. She is awake and alert and carries on a conversation. However, she says that her incision is doing well and I asked her what incision and she said from where she had her appendix out and I said winded that happen and she said yesterday! Patient no longer complains of pain in her feet. Is complaining of pain in her back and wants to have a shot of Toradol. Also, says she needs Levaquin for a UTI, even though her admission urinalysis did not look like a urinary tract infection. I am repeating her urinalysis today. Vital signs are all normal. No fever. Patient is mentally not functioning at a level that she can take care of her self. Patient is not stable for discharge, although she is stable for transfer to another facility. Mihaela Kelley MD
[2019-06-03 10:42] LABS: APPEARANCE,URINE CLEAR; BILIRUBIN,URINE NEGATIVE (NEGATIVE); COLOR,URINE COLORLESS; GLUCOSE, URINE NEGATIVE (NEGATIVE); KETONES,URINE NEGATIVE (NEGATIVE); LEUKOCYTE ESTERASE,URINE NEGATIVE (NEGATIVE); NITRITE,URINE NEGATIVE (NEGATIVE); PROTEIN,URINE NEGATIVE (NEGATIVE); URINE SPECIFIC GRAVITY 1.002; UROBILINOGEN,URINE NEGATIVE mg/dL (<2.0)
--- NOTE | 2019-06-03 17:53 | PSYCHOLOGICAL NOTE ---
Psych Note - Psych Note Date seen by psych provider: 06/03/19 Time seen by psych provider: 08:15 Psych Note: Presenting Problem: AMS after roommate called EMS for concerns of patient locking self in bathroom, she did not answer questions or interact appropriately with EMS, she was hitting her head on the wall/toilet/floor Check in with patient Patient is alert however seems to be confused on current situation (she thinks that she had appendicitis yesterday). Patient has significant history of medication misuse. Diagnosis: AMS Hx of over medicating Hx medication overuse/misuse 296.80 (F31.9) Unspecified Bipolar and Related Disorder by History per patient R/O 799.59 (R41.9) Unspecified Neurocognitive Disorder Medication recommendations made by the psychiatric medical provider, Dr. Awa MD., includes: Add Depakote DR 250MG twice a day for mood stabilization Add Buspar 5MG twice a day for anxiety/calming effect/depression/sleep Impression/Plan: Hold overnight again. Patient still needs assessed. She presented alert but disoriented today. Medications have been recommended. She still needs more stabilization. Will attempt to assess tomorrow morning. Consulted with Dr. Flores regarding the management and care of patient. ED Physician in agreement with recommendations.
[2019-06-04] MEDS: GABAPENTIN 300 MG CAPSULE PO SCH (05:17)
--- NOTE | 2019-06-04 09:23 | ER Document Report ---
Doctor's Note Notes: 06/04/19 09:22 63-year-old female who was locking herself in the bathroom and possibly abusing multiple medications. Vital signs are stable. Labs as recorded. Awaiting psychiatric disposition. Patient has no focal neurological deficits or pain at this time. Patient has had a CT of the head performed on the last 2 previous visits. 06/04/19 10:12 Patient currently has no homicidal or suicidal ideations at this time. She has no auditory or visual hallucinations. Patient no longer believe she had appendectomy surgery recently. Patient denies pain to any location. Patient understands the importance of not using illicit drugs or taking medications that are not appropriately prescribed to her. She does have outpatient follow-up. We did instruct the patient to follow-up with [facility]. Strict return precautions have been provided. The psychology/psychology team is seen and assessed the patient and they do not believe that the patient is a threat to herself or others at this time. They do not believe she meets IVC criteria. Patient will be discharged home at this time. Patient does live with a roommate.
--- NOTE | 2019-06-04 09:26 | PSYCHOLOGICAL NOTE ---
Psych Note - Psych Note Date seen by psych provider: 06/04/19 Time seen by psych provider: 08:10 Psych Note: Presenting Problem: AMS after roommate called EMS for concerns of patient locking self in bathroom, she did not answer questions or interact appropriately with EMS, she was hitting her head on the wall/toilet/floor Check in with patient Patient is clear and able to conducted an organized and linear conversation. Patient reports she thinks she should go to blister packets from her pharmacy to cut down on overuse of her medications. She reports her baclofen may be the cause of her issues. Diagnosis: AMS Hx of over medicating Hx medication overuse/misuse 296.80 (F31.9) Unspecified Bipolar and Related Disorder by History per patient R/O 799.59 (R41.9) Unspecified Neurocognitive Disorder Medication recommendations made by the psychiatric medical provider, Dr. Awa MD., includes: Add Depakote DR 250MG twice a day for mood stabilization Add Buspar 5MG twice a day for anxiety/calming effect/depression/sleep Impression/Plan: Patient is cleared of acute psychiatric services. Patient is no longer feeling the effects of overmedicated. She reports she will talk to her pharmacy about moving her medications to blister packs. Patient is highly encouraged to take medications as directed. Patient does have a long history of substance abuse and continues to resist discussions in regards to her misuse of her medications. Dr. Flores was consulted to care management of this patient; attending physicians agreement with recommendations and disposition.
[2019-06-04] MEDS: BUSPIRONE HCL 10 MG TABLET PO SCH (10:44)
[2019-06-04] MEDS: DIVALPROEX SODIUM 250 MG TAB.SR.24H PO SCH (10:45)
[2019-06-04 10:59] VITALS: BP 147/92
== END 2019-06-04 10:58 | disposition home or self-care (01) ==
LOC: ER 03:54
DX: F11.229 Opioid dependence with intoxication, unspecified (principal); T40.2X5A Adverse effect of other opioids, initial encounter; R41.82 Altered mental status, unspecified; Y92.9 Unspecified place or not applicable; Z79.899 Other long term (current) drug therapy; I10 Essential (primary) hypertension; E11.9 Type 2 diabetes mellitus without complications
CPT/HCPCS: 93005; 96376; 99291; 96361; 96374; 96375; 36415; 82962; 80307 ×4; 82550; 85025; 80053; 81001; 84484; 80164; 71045; 93010; A9270 ×14; J2310 ×3; J2060; J7121; J3490

== ENCOUNTER 2019-07-02 15:26 | Emergency (ER) | payer MEDICARE, MEDICAID ==
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
[2019-07-02 16:09] LABS: ABSOLUTE LYMPHOCYTES (AUTO) 1.3 10^3/uL (0.5-4.7); ABSOLUTE MONOCYTES (AUTO) 0.4 10^3/uL (0.1-1.4); ABSOLUTE NEUT (AUTO) 5.8 10^3/uL (1.7-8.2); BASOPHILS % (AUTO) 0.6 % (0-2); EOSINOPHILS % (AUTO) 0.4 % (0-6); HEMATOCRIT 37.2 % (36.0-47.0); LYMPHOCYTES % (AUTO) 17.5 % (13-45); MEAN CORPUSCULAR HEMOGLOBIN 30.3 pg (27.0-33.4); MEAN CORPUSCULAR HGB CONC 34.8 g/dL (32.0-36.0); MEAN CORPUSCULAR VOLUME 87 fl (80-97); PLATELET COUNT 334 10^3/uL (150-450); RED BLOOD COUNT 4.27 10^6/uL (3.72-5.28); SEGMENTED NEUTROPHILS % (AUTO) 76.5 % (42-78); TOTAL CELLS COUNTED % (AUTO) 100 %; WHITE BLOOD COUNT 7.6 10^3/uL (4.0-10.5)
--- NOTE | 2019-07-02 16:20 | PSYCHOLOGICAL NOTE ---
Psych Note - Psych Note Date seen by psych provider: 07/02/19 Time seen by psych provider: 15:25 Psych Note: Reason for Consult: OD/AMS She arrived to [facility] ED via EMS after roommate called EMS, patient was more altered than normal, when ems arrived, patient kept responding "it's friday" to their questions, was talking into her hand like it was a phone, when they brought up her going to the ER, patient became aggressive, talent program manager's office was called, patient given 400mg IM ketamine at 1400, 16g to left hand Patient is currently unable to engage in evaluation. Diagnosis: AMS Hx of over medicating Hx medication overuse/misuse 296.80 (F31.9) Unspecified Bipolar and Related Disorder by History per patient R/O 799.59 (R41.9) Unspecified Neurocognitive Disorder This patient is well-known to clinician and department. Patient has been to [facility] after being found altered mental status now 10 times since December (12/15/2018, 02/15/2019, 04/23/2019, 04/24/2019, 04/28/2019, 04/29/2019, 05/05/2019, 05/14/2019, 06/01/2019, today). Patient has been sent inpatient psychiatric treatment after 12/15/2018 and then sent to [place] on 05/05/2019. Adult Protective Services report has been submitted multiple times, the last being during her 06/01/2019 [facility] visit. Patient has significant history of substance abuse; Unfortunately, patient is unable/unwilling to accept relapse to engage in effective treatment. Patient is recommended for IVC petition for overnight mental health observation as patient is currently altered and needed to receive ketamine for her and others safety. Patient be reevaluated. Dr. Flores was consulted to care management of this patient; attending physicians in agreement with augmentations and disposition
[2019-07-02 16:22] LABS: APPEARANCE,URINE SLIGHTLY-CLOUDY; BILIRUBIN,URINE NEGATIVE (NEGATIVE); COLOR,URINE YELLOW; GLUCOSE, URINE NEGATIVE (NEGATIVE); KETONES,URINE TRACE mg/dL (NEGATIVE); LEUKOCYTE ESTERASE,URINE NEGATIVE (NEGATIVE); NITRITE,URINE NEGATIVE (NEGATIVE); PROTEIN,URINE NEGATIVE (NEGATIVE); URINE SPECIFIC GRAVITY 1.015
[2019-07-02 16:25] LABS: ALKALINE PHOSPHATASE 75 U/L (38-126); ANION GAP 9 (5-19); ASPARTATE AMINO TRANSFERASE 24 U/L (14-36); BILIRUBIN,DIRECT 0.1 mg/dL (0.0-0.4); BILIRUBIN,TOTAL 0.5 mg/dL (0.2-1.3); BLOOD UREA NITROGEN 14 mg/dL (7-20); CARBON DIOXIDE 26 mmol/L (22-30); CHLORIDE 97 mmol/L (98-107); GLUCOSE 158 mg/dL (75-110); POTASSIUM 4.1 mmol/L (3.6-5.0); TOTAL PROTEIN 6.9 g/dL (6.3-8.2)
[2019-07-02 16:26] LABS: ALCOHOL < 10 mg/dL (NONE DETECTED)
[2019-07-02 16:44] LABS: URINE AMPHETAMINES SCREEN NEGATIVE; URINE BARBITURATES SCREEN NEGATIVE; URINE BENZODIAZEPINES SCREEN NEGATIVE; URINE COCAINE SCREEN NEGATIVE; URINE MARIJUANA (THC) SCREEN NEGATIVE; URINE METHADONE SCREEN NEGATIVE
[2019-07-02 16:54] LABS: URINE PHENCYCLIDINE SCREEN NEGATIVE
[2019-07-02] MEDS ORDERED: ZIPRASIDONE MESYLATE INJ/PF 20 MG SDV IM ONE (21:43)
--- NOTE | 2019-07-02 22:37 | RADIOLOGY REPORT (SQ) ---
EXAM DESCRIPTION: CT HEAD WITHOUT IV CONTRAST COMPLETED DATE/TME: 07/02/2019 21:08 CLINICAL HISTORY: 63 years Female, ams COMPARISON: 05/14/19 TECHNIQUE: No contrast. Coronal and sagittal reformat. This exam was performed according to our departmental dose-optimization program, which includes automated exposure control, adjustment of the mA and/or kV according to patient size and/or use of iterative reconstruction technique. FINDINGS: No hemorrhage or infarct. No mass, mass effect, or midline shift. Brain and extra-axial structures appear intact. IMPRESSION: Normal CT of the head.
[2019-07-03] MEDS ORDERED: ZIPRASIDONE MESYLATE INJ/PF 20 MG SDV IM ONE (00:06)
[2019-07-03] MEDS ORDERED: HALOPERIDOL DECANOATE INJ 100 MG/1 ML VIAL IM STA (02:43)
[2019-07-03] MEDS ORDERED: HALOPERIDOL LACTATE INJ 5 MG/1 ML VIAL ONE (02:49)
[2019-07-03] MEDS ORDERED: HALOPERIDOL LACTATE INJ 5 MG/1 ML VIAL IM ONE (02:51)
--- NOTE | 2019-07-03 09:01 | EKG REPORT ---
SEVERITY:- OTHERWISE NORMAL ECG - SINUS RHYTHM : Confirmed by: Norris Hooker 03-Jul-2019 09:00:53
--- NOTE | 2019-07-03 10:15 | ER Document Report ---
Doctor's Note Notes: 07/03/19 10:14 I have evaluated this pt. this am and she has no c/o at this time. She feels all of her needs are being met and her physical exam is normal. She is awaiting dispositon per mental health.
[2019-07-04 08:19] LABS: ALBUMIN 4.8 g/dL (3.5-5.0); ALKALINE PHOSPHATASE 99 U/L (38-126); ANION GAP 13 (5-19); ASPARTATE AMINO TRANSFERASE 35 U/L (14-36); BILIRUBIN,DIRECT 0.3 mg/dL (0.0-0.4); BILIRUBIN,TOTAL 0.7 mg/dL (0.2-1.3); BLOOD UREA NITROGEN 22 mg/dL (7-20); CALCIUM 10.2 mg/dL (8.4-10.2); CARBON DIOXIDE 22 mmol/L (22-30); CHLORIDE 109 mmol/L (98-107); CREATINE KINASE 332 U/L (30-135); GLUCOSE 129 mg/dL (75-110); POTASSIUM 4.7 mmol/L (3.6-5.0); TOTAL PROTEIN 7.9 g/dL (6.3-8.2)
[2019-07-04 08:35] LABS: ABSOLUTE LYMPHOCYTES (AUTO) 2.6 10^3/uL (0.5-4.7); ABSOLUTE MONOCYTES (AUTO) 0.9 10^3/uL (0.1-1.4); ABSOLUTE NEUT (AUTO) 11.6 10^3/uL (1.7-8.2); BASOPHILS % (AUTO) 0.3 % (0-2); EOSINOPHILS % (AUTO) 0.1 % (0-6); HEMATOCRIT 43.6 % (36.0-47.0); HEMOGLOBIN 14.6 g/dL (12.0-15.5); MEAN CORPUSCULAR HEMOGLOBIN 29.6 pg (27.0-33.4); MEAN CORPUSCULAR HGB CONC 33.5 g/dL (32.0-36.0); MEAN CORPUSCULAR VOLUME 88 fl (80-97); MONOCYTES % (AUTO) 5.8 % (3-13); PLATELET COUNT 458 10^3/uL (150-450); RED BLOOD COUNT 4.93 10^6/uL (3.72-5.28); RED CELL DISTRIBUTION WIDTH 14.9 % (11.5-14.0); SEGMENTED NEUTROPHILS % (AUTO) 76.8 % (42-78); TOTAL CELLS COUNTED % (AUTO) 100 %
[2019-07-04] MEDS ORDERED: BACLOFEN 20 MG TABLET PO PRN (14:14)
[2019-07-04] MEDS ORDERED: BUPRENORPHINE TD SCH (14:15)
[2019-07-04] MEDS: GABAPENTIN 300 MG CAPSULE PO SCH ×2 (15:35→21:07)
[2019-07-04] MEDS: TIZANIDINE HCL 4 MG TABLET PO SCH (15:35)
[2019-07-04] MEDS: FUROSEMIDE 40 MG TABLET PO SCH (15:35)
[2019-07-04] MEDS: LOSARTAN POTASSIUM 25 MG TABLET PO SCH (15:37)
[2019-07-04] MEDS: PANTOPRAZOLE SODIUM 20 MG TABLET.DR PO SCH (15:37)
[2019-07-04] MEDS ORDERED: MORPHINE SULFATE 10 MG/ML INJ IV ONE ×2 (16:48→18:06)
[2019-07-04] MEDS: CLONIDINE HCL 0.1 MG TABLET PO SCH (18:07)
[2019-07-04] MEDS: BUSPIRONE HCL 10 MG TABLET PO SCH ×2 (18:07→21:07)
[2019-07-04] MEDS ORDERED: NORMAL SALINE 1000 ML 1,000 ML IV ONE (18:59)
--- NOTE | 2019-07-04 18:59 | ER Document Report ---
Doctor's Note Notes: 07/04/19 18:57 CBC shows leukocytosis at 15.0, platelets elevated at 458, the fact that over the past 2 days her hemoglobin has gone from 13-14.6 indicates this is likely hemoconcentration, we will give her fluids and repeated in the morning, chemistries have mostly normalized, sodium is now normal, BUN is elevated at 22, CK was checked and is minimally elevated at 332, TSH is normal, repeat urinalysis has been ordered. Reviewing the patient's chart I am somewhat concerned that the patient's diaphoresis, tachycardia and tachypnea is related possibly to withdrawal from not having her Suboxone patch as well as not having her clonidine and other rate controlling drugs. We do not have the buprenorphine patch so she was given 2 mg of morphine to see if this would help with possible narcotic withdrawal but it has not significantly changed her vital signs. Patient was also being given clonidine and we will wait to see its effect on her vital signs. 07/04/19 18:59 Full medication reconciliation has been performed. Patient is not yet medically cleared. Patient will need to be reassessed in the morning. 07/04/19 19:00 Patient is able to answer my questions, interacts well, is diaphoretic and tachycardic but neurologically intact, no focal deficits. Lungs are clear to auscultation bilaterally heart, heart reveals regular rate and rhythm with no murmurs gallops or rubs, abdomen is soft, nontender, nondistended, bowel sounds are present in all 4 quadrants. 07/04/19 20:46 Patient is responding well, only mildly tachycardic at this point. Labs will be repeated in the morning.
[2019-07-04] MEDS: PREGABALIN 75 MG CAPSULE PO SCH (21:06)
[2019-07-04] MEDS: ATORVASTATIN CALCIUM 10 MG TABLET PO SCH (21:06)
[2019-07-04] MEDS: DIVALPROEX SODIUM 500 MG TAB.SR.24H PO SCH (21:08)
[2019-07-04 21:40] LABS: ABSOLUTE BASOPHILS # (AUTO) 0.2 10^3/uL (0.0-0.2); ABSOLUTE LYMPHOCYTES (AUTO) 3.1 10^3/uL (0.5-4.7); ABSOLUTE MONOCYTES (AUTO) 1.7 10^3/uL (0.1-1.4); ABSOLUTE NEUT (AUTO) 9.6 10^3/uL (1.7-8.2); BASOPHILS % (AUTO) 1.4 % (0-2); HEMATOCRIT 40.1 % (36.0-47.0); HEMOGLOBIN 13.6 g/dL (12.0-15.5); LYMPHOCYTES % (AUTO) 21.6 % (13-45); MEAN CORPUSCULAR HGB CONC 33.9 g/dL (32.0-36.0); MEAN CORPUSCULAR VOLUME 88 fl (80-97); MONOCYTES % (AUTO) 11.3 % (3-13); PLATELET COUNT 411 10^3/uL (150-450); RED BLOOD COUNT 4.54 10^6/uL (3.72-5.28); RED CELL DISTRIBUTION WIDTH 14.9 % (11.5-14.0); SEGMENTED NEUTROPHILS % (AUTO) 65.7 % (42-78); TOTAL CELLS COUNTED % (AUTO) 100 %; WHITE BLOOD COUNT 14.6 10^3/uL (4.0-10.5)
[2019-07-04] MEDS ORDERED: QUETIAPINE FUMARATE 100 MG TABLET PO SCH (22:00)
[2019-07-04] MEDS ORDERED: ZOLPIDEM TARTRATE 5 MG TABLET PO SCH (22:00)
[2019-07-04] MEDS ORDERED: (PENDING PHARMACY ID) (Divalproex Sodium [Depakote] 500 MG) PO SCH (22:00)
[2019-07-04 22:01] LABS: ALKALINE PHOSPHATASE 85 U/L (38-126); ANION GAP 10 (5-19); ASPARTATE AMINO TRANSFERASE 35 U/L (14-36); BILIRUBIN,DIRECT 0.2 mg/dL (0.0-0.4); BILIRUBIN,TOTAL 0.6 mg/dL (0.2-1.3); BLOOD UREA NITROGEN 34 mg/dL (7-20); CALCIUM 9.2 mg/dL (8.4-10.2); CARBON DIOXIDE 23 mmol/L (22-30); CHLORIDE 111 mmol/L (98-107); GLUCOSE 123 mg/dL (75-110); POTASSIUM 4.3 mmol/L (3.6-5.0); TOTAL PROTEIN 6.9 g/dL (6.3-8.2)
[2019-07-05 03:28] LABS: APPEARANCE,URINE CLOUDY; BILIRUBIN,URINE NEGATIVE (NEGATIVE); COLOR,URINE YELLOW; GLUCOSE, URINE NEGATIVE (NEGATIVE); KETONES,URINE TRACE mg/dL (NEGATIVE); LEUKOCYTE ESTERASE,URINE TRACE (NEGATIVE); NITRITE,URINE NEGATIVE (NEGATIVE); PROTEIN,URINE NEGATIVE (NEGATIVE); URINE SPECIFIC GRAVITY 1.016
[2019-07-05] MEDS ORDERED: (PENDING PHARMACY ID) (Esomeprazole Magnesium [Nexium] 20 MG) PO SCH (06:00)
[2019-07-05] MEDS: CLONIDINE HCL 0.1 MG TABLET PO SCH ×2 (06:49→17:14)
[2019-07-05] MEDS: GABAPENTIN 300 MG CAPSULE PO SCH ×3 (06:49→22:29)
[2019-07-05] MEDS: PANTOPRAZOLE SODIUM 20 MG TABLET.DR PO SCH (06:50)
[2019-07-05] MEDS: DIVALPROEX SODIUM 250 MG TABLET.DR PO SCH (08:15)
[2019-07-05] MEDS: BUSPIRONE HCL 10 MG TABLET PO SCH (10:36)
[2019-07-05] MEDS: PREGABALIN 75 MG CAPSULE PO SCH ×2 (10:37→22:29)
[2019-07-05] MEDS: FUROSEMIDE 40 MG TABLET PO SCH (10:38)
[2019-07-05] MEDS: TIZANIDINE HCL 4 MG TABLET PO SCH (10:38)
[2019-07-05] MEDS: LOSARTAN POTASSIUM 25 MG TABLET PO SCH (10:39)
--- NOTE | 2019-07-05 11:24 | PSYCHOLOGICAL NOTE ---
Psych Note - Psych Note Date seen by psych provider: 07/05/19 Time seen by psych provider: 08:00 - Chart review at 0800. Evaluation at 1343. Psych Note: Presenting Problem: IVC, AMS, OD, roommate found patient incoherent and lethargic so called EMS, has hx Bipolar, has hx of misuse/overuse medications. Observed patient ambulate to and from the restroom, she sat up in bed while vitals were taken and was more alert and oriented today. She stated she has black out curtains in her room, must have woke up thinking it was a different time and took medication she already took. She talked about having a knee and foot appointment tomorrow that she does not want to miss. Diagnosis: AMS Hx of over medicating Hx medication overuse/misuse Bipolar Disorder by History per patient R/O Mild Vascular Neurocognitive Disorder Medication recommendations made by the psychiatric medication provider, Dr. Awa MD., includes: Discontinue Seroquel 100MG QHS Discontinue Ambien 10MG QHS Decrease Buspar to 15MG BID Continue all the rest: Clonidine 0.1MG Q12, Depakote 250MG QAM and 500MG QHS, Buprenorphine 15MG TD Q7D, Neurontin 600MG Q8H Impression/Plan: Recommendation to maintain IVC until more alert, oriented and l ucid. Today is the first day she has been appropriate when awake and alert. Made medicaation adjustments today. Will discharge tomorrow morning. Consulted with Dr. Flores regarding the management and care of patient. ED Physician in agreement with recommendations.
[2019-07-05] MEDS: KETOROLAC TROMETHAMINE 10 MG TABLET PO PRN ×2 (13:16→19:23)
[2019-07-05] MEDS: TRAMADOL HCL 50 MG TABLET PO PRN (15:12)
--- NOTE | 2019-07-05 15:36 | ER Document Report ---
Doctor's Note Notes: 07/05/19 15:34 The patient is much more relaxed today. She is not tachycardic. She was managed with clonidine and Depakote overnight. A Butrans patch have been ordered, however that drug is not available at our facility. There is some question as to whether or not she really needs to Butrans or that she is actually using it. The Seroquel and Ambien were stopped, and BuSpar was decreased to 15 mg twice daily. She did have a leukocytosis yesterday, her urine that was collected at 3 AM this morning shows 60 WBCs with 16 hyaline casts. The urinalysis will be repeated to see if that may be a true urinary tract infection. 07/05/19 17:33 The repeat urinalysis is unremarkable and much more dilute, as the patient has been drinking fluids today. She will be reevaluated by the psych workers tomorrow and probably discharged home.
[2019-07-05 16:56] LABS: APPEARANCE,URINE CLEAR; BILIRUBIN,URINE NEGATIVE (NEGATIVE); COLOR,URINE STRAW; GLUCOSE, URINE NEGATIVE (NEGATIVE); KETONES,URINE NEGATIVE (NEGATIVE); LEUKOCYTE ESTERASE,URINE NEGATIVE (NEGATIVE); NITRITE,URINE NEGATIVE (NEGATIVE); PROTEIN,URINE NEGATIVE (NEGATIVE); URINE SPECIFIC GRAVITY 1.003; UROBILINOGEN,URINE NEGATIVE mg/dL (<2.0)
[2019-07-05] MEDS ORDERED: BUSPIRONE HCL 10 MG TABLET PO SCH (18:00)
[2019-07-05] MEDS: DIVALPROEX SODIUM 500 MG TAB.SR.24H PO SCH (22:29)
[2019-07-05] MEDS: ATORVASTATIN CALCIUM 10 MG TABLET PO SCH (22:29)
[2019-07-06] MEDS: PANTOPRAZOLE SODIUM 20 MG TABLET.DR PO SCH (06:55)
[2019-07-06] MEDS: TRAMADOL HCL 50 MG TABLET PO PRN (06:56)
[2019-07-06] MEDS: GABAPENTIN 300 MG CAPSULE PO SCH (06:56)
[2019-07-06] MEDS: CLONIDINE HCL 0.1 MG TABLET PO SCH (08:04)
[2019-07-06] MEDS: DIVALPROEX SODIUM 250 MG TABLET.DR PO SCH (08:58)
--- NOTE | 2019-07-06 09:10 | ER Document Report ---
Doctor's Note Notes: 07/06/19 09:08 PHYSICAL EXAMINATION: GENERAL: Appears well, healthy, well-nourished, no acute distress. HEAD: Normocephalic, atraumatic. LUNGS: Equal breath sounds bilaterally and clear to auscultation. No wheezes rales or rhonchi. CARDIOVASCULAR: S1-S2, regular rate, regular rhythm. Radial pulses 2+, normal. ABDOMEN: Normoactive bowel sounds. Soft, nontender, no guarding, no rebound tenderness, and no masses palpated. NEUROLOGICAL: Moves all extremities upon command. Strength 5/5 in all extremities. PSYCH: Normal mood, normal affect. Discharge discussed with Dr. Zelaya. See original note and discharge paperwork.
[2019-07-06 09:14] VITALS: BP 126/56
--- NOTE | 2019-07-06 09:18 | PSYCHOLOGICAL NOTE ---
Psych Note - Psych Note Date seen by psych provider: 07/06/19 Time seen by psych provider: 08:41 - Evaluation from [id number]. Psych Note: Presenting Problem: IVC, AMS, OD, roommate found patient incoherent and lethargic so called EMS, has hx Bipolar, has hx of misuse/overuse medications. Yesterday was the first day of appropriate interactions while alert and oriented. Medication were adjusted yesterday. Today she mentioned "I think I was sleep walking, I had that problem years ago, then I woke up from napping and took medications I had already taken." Challenged patient and reminded her she has been seen 9 times in the last 4 months or so for OD that seem to get worse and worse. She stated "I have concerns about that too." She was reminded she is on several sedating medications and each time she comes to the ED adjustments are made to address that concern but she comes back on previous medication regimen. She informed she should only take the medications currently prescribed and get rid of any medications that are old or no longer prescribed. She stated her concern today is getting to her knee (supposed to get gel in her knee since no cartilage) and foot (has ingrown toenails and fungus) appointment.She agreed to follow up with current medication provider at [facility] and to ensure both [facility] and all other doctors know what medications she is prescribed. Patient alert and oriented x5 with linear thinking, mood was euthymic with congruent affect, she denied SI/HI, she was able to engage and carry on dialogue conversation which was within normal limits for rate/tone/prosody and her concern for appointments today shows future/forward/goal oriented thinking. Diagnosis: AMS Hx of over medicating Hx medication overuse/misuse Bipolar Disorder by History per patient R/O Mild Vascular Neurocognitive Disorder Impression/Plan: Patient is cleared from acute psychiatric services. Recommendation to rescind IVC. Patient alert and oriented x5 with linear thinking, mood was euthymic with congruent affect, she denied SI/HI, she was able to engage and carry on dialogue conversation which was within normal limits for rate/tone/prosody and her concern for appointments today shows future/forward/goal oriented thinking. She stated she thinks she was sleep walking, woke up from a nap and took additional medication she had already taken for the day. She noted problems in the past with this. Confronted patient that she has had numerous visits in the last few months for OD that get worse and worse. She stated she too has concerns about it. Patient instructed to follow up with current outpatient provider at [facility] for medication management within the next 3-5 days, possibly as a walk in. Provided her with the outpatient MH resource sheet which highlighted [facility] and [facility]. Roommate provided transportation. Consulted with Dr. Flores regarding the management and care of patient. ED Physician in agreement with recommendations.
== END 2019-07-06 09:14 | disposition home or self-care (01) ==
LOC: ER 15:26
DX: R41.82 Altered mental status, unspecified (principal); E11.9 Type 2 diabetes mellitus without complications; F31.9 Bipolar disorder, unspecified; R41.9 Unspecified symptoms and signs involving cognitive functions and awareness; I10 Essential (primary) hypertension; E78.00 Pure hypercholesterolemia, unspecified; Z90.49 Acquired absence of other specified parts of digestive tract
CPT/HCPCS: 93005; 99285; 96372; 96361; 96374; 36415; 80307 ×2; 82550; 84443; 85025; 87070; 80053; 81001; 70450; 93010; A9270 ×28; J1630; J2270; J3486 ×2; J7030; J3490 ×3

== ENCOUNTER 2019-09-18 19:07 | Emergency (ER) | payer MEDICARE, MEDICAID ==
[2019-09-18 19:53] LABS: ABSOLUTE BASOPHILS # (AUTO) 0.1 10^3/uL (0.0-0.2); ABSOLUTE EOSINOPHILS # (AUTO) 0.1 10^3/uL (0.0-0.6); ABSOLUTE LYMPHOCYTES (AUTO) 2.1 10^3/uL (0.5-4.7); ABSOLUTE MONOCYTES (AUTO) 0.5 10^3/uL (0.1-1.4); ABSOLUTE NEUT (AUTO) 4.2 10^3/uL (1.7-8.2); BASOPHILS % (AUTO) 1.5 % (0-2); EOSINOPHILS % (AUTO) 1.2 % (0-6); HEMATOCRIT 40.7 % (36.0-47.0); LYMPHOCYTES % (AUTO) 30.2 % (13-45); MEAN CORPUSCULAR HEMOGLOBIN 30.2 pg (27.0-33.4); MEAN CORPUSCULAR HGB CONC 34.3 g/dL (32.0-36.0); MEAN CORPUSCULAR VOLUME 88 fl (80-97); MONOCYTES % (AUTO) 7.4 % (3-13); PLATELET COUNT 280 10^3/uL (150-450); RED BLOOD COUNT 4.63 10^6/uL (3.72-5.28); RED CELL DISTRIBUTION WIDTH 14.8 % (11.5-14.0); SEGMENTED NEUTROPHILS % (AUTO) 59.7 % (42-78); TOTAL CELLS COUNTED % (AUTO) 100 %; WHITE BLOOD COUNT 7.1 10^3/uL (4.0-10.5)
[2019-09-18 20:10] LABS: ALBUMIN 4.2 g/dL (3.5-5.0); ALKALINE PHOSPHATASE 101 U/L (38-126); ANION GAP 10 (5-19); ASPARTATE AMINO TRANSFERASE 21 U/L (14-36); BILIRUBIN,DIRECT 0.1 mg/dL (0.0-0.4); BILIRUBIN,TOTAL 0.4 mg/dL (0.2-1.3); BLOOD UREA NITROGEN 9 mg/dL (7-20); CALCIUM 9.6 mg/dL (8.4-10.2); CARBON DIOXIDE 29 mmol/L (22-30); CHLORIDE 100 mmol/L (98-107); GLUCOSE 100 mg/dL (75-110); TOTAL PROTEIN 7.3 g/dL (6.3-8.2)
[2019-09-18 20:16] LABS: ACETAMINOPHEN < 10 ug/mL (10-30); ALCOHOL < 10 mg/dL (NONE DETECTED); SALICYLATE < 1.0 mg/dL (2.0-20.0)
[2019-09-18 20:26] LABS: APPEARANCE,URINE CLEAR; BILIRUBIN,URINE NEGATIVE (NEGATIVE); COLOR,URINE STRAW; GLUCOSE, URINE NEGATIVE (NEGATIVE); KETONES,URINE NEGATIVE (NEGATIVE); LEUKOCYTE ESTERASE,URINE NEGATIVE (NEGATIVE); NITRITE,URINE NEGATIVE (NEGATIVE); PROTEIN,URINE NEGATIVE (NEGATIVE); URINE SPECIFIC GRAVITY 1.006; UROBILINOGEN,URINE NEGATIVE mg/dL (<2.0)
[2019-09-18 20:40] LABS: URINE AMPHETAMINES SCREEN NEGATIVE; URINE BARBITURATES SCREEN NEGATIVE; URINE BENZODIAZEPINES SCREEN NEGATIVE; URINE COCAINE SCREEN NEGATIVE; URINE MARIJUANA (THC) SCREEN NEGATIVE; URINE METHADONE SCREEN NEGATIVE; URINE PHENCYCLIDINE SCREEN NEGATIVE
[2019-09-18] MEDS ORDERED: ONDANSETRON HCL INJ/PF 4 MG/2 ML SDV IV ONE (21:04)
--- NOTE | 2019-09-18 21:59 | RADIOLOGY REPORT (SQ) ---
EXAM DESCRIPTION: CT ABDOMEN PELVIS WITHOUT IV CONTRAST COMPLETED DATE/TME: 09/18/2019 21:01 CLINICAL HISTORY: 64 years, Female, flank pain COMPARISON: Prior study from 12/02/2018 TECHNIQUE: Noncontrast CT of the abdomen/pelvis was performed. Coronal and sagittal reformations were created. Images stored on PACS. All CT scanners at this facility use dose modulation, iterative reconstruction, and/or weight based dosing when appropriate to reduce radiation dose to as low as reasonably achievable (ALARA). [facility]: Dose Right [facility]: CareDose [facility]: Dose Right [facility]: Teradose 4D [facility]: [employer] LIMITATIONS: None. FINDINGS: Limited evaluation of the lower chest reveals clear lung bases. The liver, spleen, pancreas, and both adrenal glands appear normal. Gallbladder is absent. As a result, there is mild intrahepatic biliary ductal dilatation. A subcentimeter low-density lesion is noted about the interpolar region of the left kidney, too small to accurately characterize. Both kidneys are otherwise normal in their noncontrast appearance. No hydronephrosis or hydroureter. The urinary bladder is distended to the level of the umbilicus. Scattered colonic diverticula are noted. No adjacent inflammation. Appendix is normal. Uterus is absent. Neither ovary is well visualized. Calcifications are evident about the abdominal aorta and proximal iliac vessels. No suspicious lymphadenopathy or drainable fluid collections are appreciated. Bone windows show no destructive osseous lesions. IMPRESSION: No acute abnormality within the abdomen or pelvis. However, the urinary bladder is distended to the level of the umbilicus. TECHNICAL DOCUMENTATION: Quality ID # [id number]: Final reports with documentation of one or more dose reduction techniques (e.g., Automated exposure control, adjustment of the mA and/or kV according to patient size, use of iterative reconstruction technique) copyright 2010 [employer]- All Rights Reserved
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
--- NOTE | 2019-09-19 00:08 | EKG REPORT ---
SEVERITY:- DEFECTIVE ECG - SINUS RHYTHM : Confirmed by: Johnathon Smith MD 19-Sep-2019 00:07:07
[2019-09-19 01:30] VITALS: BP 150/84
== END 2019-09-19 01:28 | disposition home or self-care (01) ==
LOC: ER 19:07
DX: R33.9 Retention of urine, unspecified (principal); R10.9 Unspecified abdominal pain; R10.819 Abdominal tenderness, unspecified site; F17.200 Nicotine dependence, unspecified, uncomplicated; F31.9 Bipolar disorder, unspecified; F20.9 Schizophrenia, unspecified; I10 Essential (primary) hypertension; E78.00 Pure hypercholesterolemia, unspecified; E11.9 Type 2 diabetes mellitus without complications; K21.9 Gastro-esophageal reflux disease without esophagitis; Z79.82 Long term (current) use of aspirin; Z79.899 Other long term (current) drug therapy; Z88.8 Allergy status to other drugs, medicaments and biological substances; Z88.1 Allergy status to other antibiotic agents; Z88.6 Allergy status to analgesic agent; Z88.5 Allergy status to narcotic agent; Z90.49 Acquired absence of other specified parts of digestive tract
CPT/HCPCS: 36415; 74176; 80053; 80164; 80307; 81001; 83735; 85025; 93005; 93010; 99285

== ENCOUNTER 2019-10-16 13:30 | Emergency (ER) | payer MEDICARE, MEDICAID ==
[2019-10-16 13:51] LABS: ABSOLUTE EOSINOPHILS # (AUTO) 0.1 10^3/uL (0.0-0.6); ABSOLUTE MONOCYTES (AUTO) 0.5 10^3/uL (0.1-1.4); ABSOLUTE NEUT (AUTO) 5.7 10^3/uL (1.7-8.2); BASOPHILS % (AUTO) 0.4 % (0-2); EOSINOPHILS % (AUTO) 1.2 % (0-6); HEMATOCRIT 39.8 % (36.0-47.0); HEMOGLOBIN 13.9 g/dL (12.0-15.5); LYMPHOCYTES % (AUTO) 24.5 % (13-45); MEAN CORPUSCULAR HEMOGLOBIN 30.7 pg (27.0-33.4); MEAN CORPUSCULAR VOLUME 88 fl (80-97); MONOCYTES % (AUTO) 5.7 % (3-13); PLATELET COUNT 321 10^3/uL (150-450); RED BLOOD COUNT 4.54 10^6/uL (3.72-5.28); RED CELL DISTRIBUTION WIDTH 14.5 % (11.5-14.0); SEGMENTED NEUTROPHILS % (AUTO) 68.2 % (42-78); TOTAL CELLS COUNTED % (AUTO) 100 %; WHITE BLOOD COUNT 8.3 10^3/uL (4.0-10.5)
[2019-10-16 14:11] LABS: ALBUMIN 4.6 g/dL (3.5-5.0); ALKALINE PHOSPHATASE 103 U/L (38-126); ANION GAP 11 (5-19); ASPARTATE AMINO TRANSFERASE 24 U/L (14-36); BILIRUBIN,DIRECT 0.2 mg/dL (0.0-0.4); BILIRUBIN,TOTAL 0.6 mg/dL (0.2-1.3); BLOOD UREA NITROGEN 15 mg/dL (7-20); CALCIUM 9.8 mg/dL (8.4-10.2); CARBON DIOXIDE 28 mmol/L (22-30); CHLORIDE 104 mmol/L (98-107); GLUCOSE 139 mg/dL (75-110); POTASSIUM 4.1 mmol/L (3.6-5.0); TOTAL PROTEIN 7.8 g/dL (6.3-8.2)
[2019-10-16 14:12] LABS: ACETAMINOPHEN < 10 ug/mL (10-30); ALCOHOL < 10 mg/dL (NONE DETECTED); SALICYLATE < 1.0 mg/dL (2.0-20.0)
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
--- NOTE | 2019-10-16 14:55 | RADIOLOGY REPORT (SQ) ---
EXAM DESCRIPTION: CT HEAD WITHOUT COMPLETED DATE/TIME: 10/16/2019 1:35 pm REASON FOR STUDY: Decreased LOC, AMS, possible head injury COMPARISON: None. TECHNIQUE: Axial images acquired through the brain without intravenous contrast. Images reviewed wi th bone, brain and subdural windows. Images stored on PACS. All CT scanners at this facility use dose modulation, iterative reconstruction, and/or weight based d osing when appropriate to reduce radiation dose to as low as reasonably achievable (ALARA). [facility]: Dose Right [facility]: CareDose [facility]: Dose Right [facility]: Teradose 4D [facility]: [employer] RADIATION DOSE: CT Rad equipment meets quality standard of care and radiation dose reduction techniq ues were employed. CTDIvol: 53.2 mGy. DLP: 937 mGy-cm. mGy. LIMITATIONS: None. FINDINGS: VENTRICLES: Normal size and contour. CEREBRUM: No masses. No hemorrhage. No midline shift. No evidence for acute infarction. Normal gra y/white matter differentiation. No areas of low density in the white matter. CEREBELLUM: No masses. No hemorrhage. No alteration of density. No evidence for acute infarction. EXTRAAXIAL SPACES: No fluid collections. No masses. ORBITS AND GLOBE: No intra- or extraconal masses. Normal contour of globe without masses. CALVARIUM: No fracture. PARANASAL SINUSES: There is new Mucosal thickening in the left maxillary sinus. No air-fluid levels. . Remaining paranasal sinuses and mastoid air cells are clear. SOFT TISSUES: No mass or hematoma. OTHER: No other significant finding. IMPRESSION: 1. No acute intracranial hemorrhage, mass, or evidence of acute territorial infarct. 2. Possible acute left maxillary sinusitis new from prior exam. EVIDENCE OF ACUTE STROKE: NO. COMMENT: Quality ID # 436: Final reports with documentation of one or more dose reduction techniques (e.g., Automated exposure control, adjustment of the mA and/or kV according to patient size, use of iterative reconstruction technique) TECHNICAL DOCUMENTATION: JOB ID: [id number] [employer]- All Rights Reserved Reading location - IP/workstation name: [email or web address]
--- NOTE | 2019-10-16 14:57 | RADIOLOGY REPORT (SQ) ---
EXAM DESCRIPTION: CT CERVICAL SPINE WITHOUT COMPLETED DATE/TIME: 10/16/2019 1:35 pm REASON FOR STUDY: Decreased LOC, AMS, possible head injury COMPARISON: 05/14/2019 TECHNIQUE: Axial images acquired through the cervical spine without intravenous contrast. Images re viewed with lung, soft tissue and bone windows. Reconstructed coronal and sagittal MPR images review ed. Images stored on PACS. All CT scanners at this facility use dose modulation, iterative reconstruction, and/or weight based d osing when appropriate to reduce radiation dose to as low as reasonably achievable (ALARA). [facility]: Dose Right [facility]: CareDose [facility]: Dose Right [facility]: Teradose 4D [facility]: [employer] RADIATION DOSE: CT Rad equipment meets quality standard of care and radiation dose reduction techniq ues were employed. CTDIvol: 18.1 mGy. DLP: 371 mGy-cm. mGy. LIMITATIONS: None. FINDINGS: ALIGNMENT: Anatomic. MINERALIZATION: Normal. VERTEBRAL BODIES: No acute fracture or cortical disruption. Small marginal osteophytes. DISCS: Mild to moderate degenerative disc disease most prominent at C4-C5. FACETS, LATERAL MASSES, POSTERIOR ELEMENTS: No fracture. Minimal facet arthropathy. HARDWARE: None in the spine. VISUALIZED RIBS: No fractures. LUNG APICES AND SOFT TISSUES: No significant or acute findings. OTHER: No other significant finding. IMPRESSION: 1. [id number] degenerative disc disease and spondylosis in the cervical spine. 2. No acute fracture or dislocation. TECHNICAL DOCUMENTATION: JOB ID: [id number] Quality ID # [id number]: Final reports with documentation of one or more dose reduction techniques (e.g., Au tomated exposure control, adjustment of the mA and/or kV according to patient size, use of iterative reconstruction technique) [address] All Rights Reserved Reading location - IP/workstation name: [email or web address]
[2019-10-16 17:10] LABS: APPEARANCE,URINE CLEAR; BILIRUBIN,URINE NEGATIVE (NEGATIVE); COLOR,URINE YELLOW; GLUCOSE, URINE NEGATIVE (NEGATIVE); KETONES,URINE NEGATIVE (NEGATIVE); LEUKOCYTE ESTERASE,URINE NEGATIVE (NEGATIVE); NITRITE,URINE NEGATIVE (NEGATIVE); PROTEIN,URINE NEGATIVE (NEGATIVE); URINE SPECIFIC GRAVITY 1.008; UROBILINOGEN,URINE NEGATIVE mg/dL (<2.0)
[2019-10-16 17:27] LABS: URINE AMPHETAMINES SCREEN NEGATIVE; URINE BARBITURATES SCREEN NEGATIVE; URINE BENZODIAZEPINES SCREEN NEGATIVE; URINE COCAINE SCREEN NEGATIVE; URINE MARIJUANA (THC) SCREEN NEGATIVE; URINE METHADONE SCREEN NEGATIVE; URINE PHENCYCLIDINE SCREEN NEGATIVE
[2019-10-17 05:33] VITALS: BP 167/92
--- NOTE | 2019-10-17 20:44 | EKG REPORT ---
SEVERITY:- NORMAL ECG - SINUS RHYTHM : Confirmed by: Norris Hooker 17-Oct-2019 20:42:57
== END 2019-10-17 05:40 | disposition home or self-care (01) ==
LOC: ER 13:30
DX: R41.82 Altered mental status, unspecified (principal); F41.9 Anxiety disorder, unspecified; E11.9 Type 2 diabetes mellitus without complications; I10 Essential (primary) hypertension
CPT/HCPCS: 36415; 70450; 72125; 80053; 80307; 81001; 82962; 85025; 93005; 93010; 99285

== ENCOUNTER 2019-10-21 14:02 | Emergency (ER) | payer MEDICARE, MEDICAID ==
[2019-10-21 14:56] LABS: ABSOLUTE MONOCYTES (AUTO) 0.4 10^3/uL (0.1-1.4); ABSOLUTE NEUT (AUTO) 7.8 10^3/uL (1.7-8.2); BASOPHILS % (AUTO) 0.4 % (0-2); HEMATOCRIT 38.6 % (36.0-47.0); HEMOGLOBIN 13.6 g/dL (12.0-15.5); LYMPHOCYTES % (AUTO) 11.2 % (13-45); MEAN CORPUSCULAR HEMOGLOBIN 31.1 pg (27.0-33.4); MEAN CORPUSCULAR HGB CONC 35.3 g/dL (32.0-36.0); MEAN CORPUSCULAR VOLUME 88 fl (80-97); MONOCYTES % (AUTO) 3.9 % (3-13); PLATELET COUNT 342 10^3/uL (150-450); RED BLOOD COUNT 4.38 10^6/uL (3.72-5.28); RED CELL DISTRIBUTION WIDTH 14.7 % (11.5-14.0); SEGMENTED NEUTROPHILS % (AUTO) 84.5 % (42-78); TOTAL CELLS COUNTED % (AUTO) 100 %; WHITE BLOOD COUNT 9.2 10^3/uL (4.0-10.5)
[2019-10-21 15:25] LABS: ALBUMIN 4.6 g/dL (3.5-5.0); ALKALINE PHOSPHATASE 116 U/L (38-126); ANION GAP 12 (5-19); ASPARTATE AMINO TRANSFERASE 82 U/L (14-36); BILIRUBIN,DIRECT 0.4 mg/dL (0.0-0.4); BILIRUBIN,TOTAL 0.8 mg/dL (0.2-1.3); BLOOD UREA NITROGEN 15 mg/dL (7-20); CARBON DIOXIDE 26 mmol/L (22-30); CHLORIDE 103 mmol/L (98-107); GLUCOSE 151 mg/dL (75-110); POTASSIUM 4.5 mmol/L (3.6-5.0)
[2019-10-21 15:28] LABS: ACETAMINOPHEN < 10 ug/mL (10-30); ALCOHOL < 10 mg/dL (NONE DETECTED); SALICYLATE < 1.0 mg/dL (2.0-20.0)
--- NOTE | 2019-10-21 15:32 | PSYCHOLOGICAL NOTE ---
Psych Note - Psych Note Date seen by psych provider: 10/21/19 Time seen by psych provider: 14:04 Psych Note: Reason for consult:AMS Patient is observed laying in stretcher with psychomotor agitation of shaking legs and torso. Clinician notes odd mouth movements by patient. She reports that she took her gabapentin 400 mg. She denies taking anything else. Patient denies thoughts of wanting to harm herself and denies any intentional overdose. Patient confirms she remembers clinician. Clinician notes patient is heard telling attending nurse that she took 4 of her gabapentin. Patient has a history of substance abuse and misuse of medications. Is currently unclear if the patient's current presentation is due to substances. Impression/Plan: Patient is recommended for IVC petition for overnight mental health observation. Patient will be reevaluated as it is unclear at this time if patient's presentation is due to mental health, or substance misuse. Dr. Flores was consulted on the care and management of this patient; attending physician is in agreement with recommendations and disposition.
--- NOTE | 2019-10-21 15:45 | EKG REPORT ---
SEVERITY:- OTHERWISE NORMAL ECG - SINUS TACHYCARDIA : Confirmed by: Natividad Yusuf MD 21-Oct-2019 15:44:47
[2019-10-21] MEDS ORDERED: NORMAL SALINE 1000 ML 1,000 ML IV ONE (16:07)
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
[2019-10-21 18:05] LABS: APPEARANCE,URINE CLEAR; BILIRUBIN,URINE NEGATIVE (NEGATIVE); COLOR,URINE YELLOW; GLUCOSE, URINE NEGATIVE (NEGATIVE); KETONES,URINE 20 mg/dL (NEGATIVE); LEUKOCYTE ESTERASE,URINE NEGATIVE (NEGATIVE); NITRITE,URINE NEGATIVE (NEGATIVE); PROTEIN,URINE NEGATIVE (NEGATIVE); URINE SPECIFIC GRAVITY 1.018
[2019-10-21 18:32] LABS: URINE AMPHETAMINES SCREEN NEGATIVE; URINE BARBITURATES SCREEN NEGATIVE; URINE BENZODIAZEPINES SCREEN NEGATIVE; URINE COCAINE SCREEN NEGATIVE; URINE MARIJUANA (THC) SCREEN NEGATIVE; URINE METHADONE SCREEN NEGATIVE; URINE PHENCYCLIDINE SCREEN NEGATIVE
--- NOTE | 2019-10-22 10:02 | PSYCHOLOGICAL NOTE ---
Psych Note - Psych Note Date seen by psych provider: 10/22/19 Time seen by psych provider: 07:40 Psych Note: Reason for consult:AMS Patient's status remains generally unchanged. Clinician notes continued psychomotor agitation of shaking legs and torso and odd mouth movements. Patient has a history of substance abuse and misuse of medications. Patient answers questions selectively. Patient is generally not engaged with clinician. Patient states "I'm fine." Patient denies SI/HI. Per report from [facility] main entree cook and cashier, there is concern that patient has been non compliant with medications. There is evidence to suggest that patient was pretending to take medications, however, instead of ingesting the medication, patient would place the mediation in a hidden pill bottle. Per converstaion with nurse, patient attempted to "casually elope." Impression/Plan: Patient is recommended for continued IVC for observation and stabilization. Dr. Flores was consulted on the care and management of this patient; attending physician is in agreement with recommendations and disposition.
[2019-10-22] MEDS ORDERED: ONDANSETRON 4 MG TAB.RAPDIS PO ONE (19:02)
[2019-10-22] MEDS ORDERED: DIPHENHYDRAMINE HCL 25 MG CAPSULE PO ONE (19:02)
--- NOTE | 2019-10-22 19:05 | ER Document Report ---
Doctor's Note Notes: 10/22/19 19:03 Late note. Pt was evaluated. Pt is nontoxic, well appearing. Pt states she did not sleep last night and she feels dehydrated. Pt encouraged to drink PO fluids. Pt also states she feels nauseous. Zofran ordered. Pt continues to remain in ER pending psych recommendations for dispo.
[2019-10-22] MEDS ORDERED: DIPHENHYDRAMINE HCL 50 MG/ML VIAL IM ONE (20:12)
[2019-10-22] MEDS ORDERED: HALOPERIDOL LACTATE INJ 5 MG/1 ML VIAL IM ONE (20:12)
[2019-10-23] MEDS ORDERED: TIZANIDINE HCL 4 MG TABLET PO PRN (00:37)
[2019-10-23] MEDS ORDERED: BACLOFEN 20 MG TABLET PO PRN (00:37)
[2019-10-23] MEDS ORDERED: BUPRENORPHINE TD SCH (00:45)
[2019-10-23] MEDS ORDERED: BUSPIRONE HCL 10 MG TABLET PO ONE (01:00)
[2019-10-23] MEDS ORDERED: MIRTAZAPINE 15 MG TABLET PO ONE (01:00)
[2019-10-23] MEDS ORDERED: DIVALPROEX SODIUM 250 MG TABLET.DR PO ONE (01:00)
[2019-10-23] MEDS: GABAPENTIN 300 MG CAPSULE PO SCH ×3 (05:25→17:30)
[2019-10-23] MEDS: PANTOPRAZOLE SODIUM 20 MG TABLET.DR PO SCH ×2 (10:36→17:30)
[2019-10-23] MEDS: CLONIDINE HCL 0.1 MG TABLET PO SCH ×2 (10:36→22:29)
[2019-10-23] MEDS: DIVALPROEX SODIUM 250 MG TABLET.DR PO SCH ×2 (10:36→22:30)
[2019-10-23] MEDS: BUSPIRONE HCL 10 MG TABLET PO SCH ×4 (10:37→22:29)
[2019-10-23] MEDS: LOSARTAN POTASSIUM 25 MG TABLET PO SCH (10:37)
[2019-10-23] MEDS: DICYCLOMINE HCL 20 MG TABLET PO PRN (13:54)
--- NOTE | 2019-10-23 14:16 | ER Document Report ---
Doctor's Note Notes: 10/23/19 14:15 Evaluated pt. Nontoxic, well appearing. Pt continues to be IVC per psych team.
--- NOTE | 2019-10-23 19:51 | PSYCHOLOGICAL NOTE ---
Psych Note - Psych Note Date seen by psych provider: 10/23/19 Time seen by psych provider: 18:30 Psych Note: Reason for consult:AMS Patient was sitting in bed resting comfortably when patient entered the room. Clinician engaged in small talk with patient. Patient stated that she had "a poopy" and requested a shower and clean clothes. Patient reports she is "criminally insane." Patient reports no criminal justice involvement. Patient reports a history of extensive substance abuse, to include methamphetamines. Patient states "I have always got to have a man." Patient states mental health diagnoses of schizophrenia and bipolar. Per report from [facility] fall internship, there is concern that patient has been non compliant with medications. There is evidence to suggest that patient was pretending to take medications, however, instead of ingesting the medication, patient would place the mediation in a hidden pill bottle. Impression/Plan: Patient is recommended for continued IVC for observation and stabilization. Clinician refaxed referral packet. Dr. Flores was consulted on the care and management of this patient; attending physician is in agreement with recommendations and disposition.
[2019-10-23] MEDS: ATORVASTATIN CALCIUM 10 MG TABLET PO SCH (22:31)
[2019-10-23] MEDS: MIRTAZAPINE 15 MG TABLET PO SCH (22:31)
[2019-10-24] MEDS: GABAPENTIN 300 MG CAPSULE PO SCH ×5 (01:21→23:51)
[2019-10-24] MEDS: BUSPIRONE HCL 10 MG TABLET PO SCH ×4 (10:54→22:49)
[2019-10-24] MEDS: LOSARTAN POTASSIUM 25 MG TABLET PO SCH (10:54)
[2019-10-24] MEDS: DIVALPROEX SODIUM 250 MG TABLET.DR PO SCH ×2 (10:54→22:48)
[2019-10-24] MEDS: CLONIDINE HCL 0.1 MG TABLET PO SCH ×2 (10:54→22:48)
[2019-10-24] MEDS: PANTOPRAZOLE SODIUM 20 MG TABLET.DR PO SCH ×2 (11:39→18:55)
[2019-10-24] MEDS: DICYCLOMINE HCL 20 MG TABLET PO PRN (14:39)
--- NOTE | 2019-10-24 16:59 | ER Document Report ---
Doctor's Note Notes: 10/24/19 16:59 evaluated patient. Nontoxic, well-appearing. Patient states she had Bentyl this morning due to having IBS. Patient continues to remain IVC pending possible placement per psychiatric team.
--- NOTE | 2019-10-24 17:46 | PSYCHOLOGICAL NOTE ---
Psych Note - Psych Note Date seen by psych provider: 10/24/19 Time seen by psych provider: 17:35 Psych Note: Reason for consult: AMS Patient reports issues with irritable bowel syndrome. Patient states the hospital food is not agreeing with her stomach, which results in her having bowel movements on herself. Patient reports a herniated disk which requires pain medication. Patient began to list other medical complaints. Patient was reminded clinician is from the behavioral health team. Patient stated, "ok let me tell you about that then." Patient stated she has realized she has had a "psychotic break." Patient reports being in "full psychosis state." Patient denies suicidal and homicidal ideations. Patient reports no auditory and/or hallucinations. Patient stated she requires "Thorazine." Patient states mental health diagnoses of schizophrenia and bipolar. Per report from [facility] auger operator, there is concern that patient has been non compliant with medications. There is evidence to suggest that patient was pretending to take medications, however, instead of ingesting the medication, patient would place the mediation in a hidden pill bottle. Impression/Plan: Patient is recommended for continued IVC for observation and stabilization. Clinician faxed updated referral packet to [address] Flores was consulted on the care and management of this patient; attending physician is in agreement with recommendations and disposition.
[2019-10-24] MEDS: ATORVASTATIN CALCIUM 10 MG TABLET PO SCH (22:47)
[2019-10-24] MEDS: MIRTAZAPINE 15 MG TABLET PO SCH (22:49)
[2019-10-25] MEDS: GABAPENTIN 300 MG CAPSULE PO SCH ×2 (07:00→13:19)
[2019-10-25] MEDS: BUSPIRONE HCL 10 MG TABLET PO SCH ×2 (10:40→15:54)
[2019-10-25] MEDS: DIVALPROEX SODIUM 250 MG TABLET.DR PO SCH (10:40)
[2019-10-25] MEDS: CLONIDINE HCL 0.1 MG TABLET PO SCH (10:41)
[2019-10-25] MEDS: LOSARTAN POTASSIUM 25 MG TABLET PO SCH (10:41)
[2019-10-25] MEDS: PANTOPRAZOLE SODIUM 20 MG TABLET.DR PO SCH (10:41)
--- NOTE | 2019-10-25 14:00 | PSYCHOLOGICAL NOTE ---
Psych Note - Psych Note Date seen by psych provider: 10/25/19 Time seen by psych provider: 10:40 Psych Note: Reason for consult:AMS Patient presented to [facility] ED with psychomotor agitation of shaking legs and torso in addition to odd mouth movements by patient. Patient has a altered mental status and it was unclear if it was substance induced to organic. Check in conducted with patient: Patient greets clinician with smile reports she is feeling significantly impro henrik. She reports that when she first came in she was feeling "horrible" and identifies experiencing both auditory hallucinations and delusions of persecution. She states that she feels that this was from taking Chantix and reports that she will never take that again. Patient states she thought she was taking her other medications however when it was pointed out that after a pill count was conducted at home, it was identified she had not been taking any of her medications. She reports she feels that this was because she went "psychotic" from the Chantix. Patient's mood is euthymic with congruent affect. She denies any thoughts of wanting to harm herself or others. There is no indication the patient continues to experience internal stimuli. She denies experiencing any current auditory or visual hallucinations. She denies any thoughts that people are out to get her. Patient confirms she will take medications as directed. Patient is able to to demonstrate organized and linear thought processes with normal conversational speech. Patient maintains eye contact well. Cytochrome motor agitation has significantly improved with only slight visible tremor in one leg. Impression/Plan: Patient is recommended for rescind of IVC and is cleared from acute psychiatric services. Patient stopped taking all of her medications and reports she believes taking Chantix caused her to go "psychotic." At this time the patient is not indicating any behaviors of responding to internal stimuli. She is able to engage in organized, linear and logical conversational speech. She means eye contact well and identifies significant improvement in her mood and symptoms. Patient has well-documented history of medication misuse. She is highly encouraged to take medications as directed and to follow-up with her outpatient mental health provider. Dr. Flores was consulted on the care and management of this patient; attending physician is in agreement with recommendations and disposition.
--- NOTE | 2019-10-25 16:09 | ER Document Report ---
Doctor's Note Notes: 10/25/19 16:08 PHYSICAL EXAMINATION: GENERAL: Appears well, healthy, well-nourished, no acute distress. LUNGS: Equal breath sounds bilaterally and clear to auscultation. No wheezes rales or rhonchi. CARDIOVASCULAR: S1-S2, regular rate, regular rhythm. Radial pulses 2+, normal. ABDOMEN: Normoactive bowel sounds. Soft, nontender, no guarding, no rebound tenderness, and no masses palpated. PSYCH: Normal mood, normal affect. Patient is in good spirits and states that she feels much better after being here in the hospital. She states that she is ready to go home. Denies any suicidal or homicidal ideation. Patient cleared by mental health. Follow-up precautions were given. Verbal discharge instructions were given to the patient. They verbalized understanding. They are stable for discharge.
[2019-10-25 16:36] VITALS: BP 132/74
== END 2019-10-25 16:35 | disposition home or self-care (01) ==
LOC: ER 14:02
DX: R44.1 Visual hallucinations (principal); R44.0 Auditory hallucinations; F19.10 Other psychoactive substance abuse, uncomplicated; K58.9 Irritable bowel syndrome, unspecified; R11.0 Nausea; F17.200 Nicotine dependence, unspecified, uncomplicated; I10 Essential (primary) hypertension; E11.9 Type 2 diabetes mellitus without complications; Z88.6 Allergy status to analgesic agent; Z88.5 Allergy status to narcotic agent; Z88.8 Allergy status to other drugs, medicaments and biological substances; Z88.1 Allergy status to other antibiotic agents
CPT/HCPCS: 93005; 99285; 36415; 80307 ×4; 85025; 80053; 81001; 93010; A9270 ×26; J1200; J1630; J7030; J3490; S0119

== ENCOUNTER 2019-10-26 19:04 | Emergency (ER) | payer MEDICARE, MEDICAID ==
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
[2019-10-26 20:58] LABS: ABSOLUTE EOSINOPHILS # (AUTO) 0.1 10^3/uL (0.0-0.6); ABSOLUTE LYMPHOCYTES (AUTO) 2.6 10^3/uL (0.5-4.7); ABSOLUTE MONOCYTES (AUTO) 0.4 10^3/uL (0.1-1.4); ABSOLUTE NEUT (AUTO) 3.7 10^3/uL (1.7-8.2); BASOPHILS % (AUTO) 0.4 % (0-2); EOSINOPHILS % (AUTO) 1.6 % (0-6); HEMATOCRIT 37.1 % (36.0-47.0); HEMOGLOBIN 13.2 g/dL (12.0-15.5); LYMPHOCYTES % (AUTO) 37.9 % (13-45); MEAN CORPUSCULAR HEMOGLOBIN 31.2 pg (27.0-33.4); MEAN CORPUSCULAR HGB CONC 35.4 g/dL (32.0-36.0); MEAN CORPUSCULAR VOLUME 88 fl (80-97); MONOCYTES % (AUTO) 6.5 % (3-13); PLATELET COUNT 365 10^3/uL (150-450); RED BLOOD COUNT 4.22 10^6/uL (3.72-5.28); RED CELL DISTRIBUTION WIDTH 14.2 % (11.5-14.0); SEGMENTED NEUTROPHILS % (AUTO) 53.6 % (42-78); TOTAL CELLS COUNTED % (AUTO) 100 %; WHITE BLOOD COUNT 6.9 10^3/uL (4.0-10.5)
[2019-10-26 20:59] LABS: ALBUMIN 4.1 g/dL (3.5-5.0); ALKALINE PHOSPHATASE 87 U/L (38-126); ANION GAP 11 (5-19); ASPARTATE AMINO TRANSFERASE 30 U/L (14-36); BILIRUBIN,TOTAL 0.5 mg/dL (0.2-1.3); BLOOD UREA NITROGEN 14 mg/dL (7-20); CALCIUM 9.6 mg/dL (8.4-10.2); CARBON DIOXIDE 24 mmol/L (22-30); CHLORIDE 98 mmol/L (98-107); GLUCOSE 112 mg/dL (75-110); POTASSIUM 4.3 mmol/L (3.6-5.0); TOTAL PROTEIN 7.1 g/dL (6.3-8.2)
[2019-10-26 21:03] LABS: ACETAMINOPHEN < 10 ug/mL (10-30); ALCOHOL < 10 mg/dL (NONE DETECTED); SALICYLATE < 1.0 mg/dL (2.0-20.0)
[2019-10-26 21:04] LABS: APPEARANCE,URINE CLEAR; BILIRUBIN,URINE NEGATIVE (NEGATIVE); COLOR,URINE YELLOW; GLUCOSE, URINE NEGATIVE (NEGATIVE); KETONES,URINE TRACE mg/dL (NEGATIVE); LEUKOCYTE ESTERASE,URINE NEGATIVE (NEGATIVE); NITRITE,URINE NEGATIVE (NEGATIVE); PROTEIN,URINE NEGATIVE (NEGATIVE); URINE SPECIFIC GRAVITY 1.011; UROBILINOGEN,URINE NEGATIVE mg/dL (<2.0)
[2019-10-26 21:16] LABS: URINE AMPHETAMINES SCREEN NEGATIVE; URINE BARBITURATES SCREEN NEGATIVE; URINE BENZODIAZEPINES SCREEN NEGATIVE; URINE COCAINE SCREEN NEGATIVE; URINE MARIJUANA (THC) SCREEN NEGATIVE; URINE METHADONE SCREEN NEGATIVE; URINE PHENCYCLIDINE SCREEN NEGATIVE
[2019-10-27] MEDS ORDERED: LORAZEPAM 1 MG TABLET PO PRN (00:16)
[2019-10-27] MEDS ORDERED: LORAZEPAM 1 MG TABLET PO SCH (02:00)
--- NOTE | 2019-10-27 07:43 | EKG REPORT ---
SEVERITY:- BORDERLINE ECG - SINUS RHYTHM PROBABLE LEFT ATRIAL ABNORMALITY : Confirmed by: Johnathon Smith MD 27-Oct-2019 07:42:40
[2019-10-27 08:05] VITALS: BP 150/82
--- NOTE | 2019-10-27 10:25 | ER Document Report ---
Doctor's Note Notes: 10/27/19 10:10 Patient sleeping, will continue to monitor. 10/27/19 14:00 PHYSICAL EXAMINATION: GENERAL: Well-appearing and in no acute distress. HEAD: Atraumatic, normocephalic. EYES: sclera anicteric, conjunctiva are normal. ENT: nares patent. Moist mucous membranes. NECK: Normal range of motion, supple without lymphadenopathy LUNGS: CTAB and equal. No wheezes rales or rhonchi. HEART: Regular rate and rhythm without murmurs EXTREMITIES: Normal range of motion, no pitting edema. NEUROLOGICAL: Cranial nerves grossly intact. Normal speech. PSYCH: Normal mood, normal affect. SKIN: Warm, Dry, normal turgor, no rashes or lesions noted Patient labs and notes reviewed. Patient denies any suicidal or homicidal ideation at this time. Patient is medically clear for discharge or transfer pending mental health evaluation. 10/27/19 15:39 Patient has been cleared per mental health team, patient denies any suicidal or homicidal ideation. Patient is medically clear for discharge and will plan to follow-up with her mental health team at [facility].
--- NOTE | 2019-10-27 14:47 | PSYCHOLOGICAL NOTE ---
Psych Note - Psych Note Date seen by psych provider: 10/27/19 Time seen by psych provider: 08:00 Psych Note: Patient is a 64-year-old female who presents to ED via EMS with concerns of reported "out of control behavior" by roommate. Per ems, patient accidentally knocked a plate of BBQ chicken on floor and was moping the floor up with her socks. Patient then went to run the sink to wash dishes and let it overflow as she got distracted and started doing other multiple tasks in the home. Upon ems arrival, patient was very distracted and flighty, moving from one task to another requiring redirection to complete. Patient was washing face then went to get socks after already being dressed with shoes on and then back to put lotion on her face. Pt is wearing a 15mg bupenorphine patch to right lower back that she states she applied yesterday after showering when she got home from discharge. Patient is known to behavioral health team. Patient was discharged from the ED on 10/25/2019 after medication stabilization in the ED for 3 days. Patient's concerns last visit were related to patient stopping all of her medications and reports she believes taking Chantix caused her to go "psychotic." Patient has well-documented history of medication misuse. Patient reports being "so wound up" regarding coming home that she smoked a cigarette. Patient verbalizes a belief that Chantix causes her to go psychotic. Patient reports she is "totally fine." Patient spoke of her medications "being all over my bedroom." Patient is alert and oriented to person, place, time and circumstance. Mood is elated with congruent affect. Patient denies suicidal and homicidal ideations. Clinician notes pressured speech. There is no observed behavior that suggests patient is responding to internal stimuli. Patient is able to express needs and wants in a logical manner. Patient states she was "so excited to be able to use her lotion" after being in the hospital for so long. Patient denies current auditory and visual hallucinations. Eye contact is appropriate. Intellectual ability appears to be within average range. Attention and concentration are good. Insight, judgment and impulse control are currently fair. Impression/Plan: Patient is cleared from acute psychiatric services. Patient denies suicidal and homicidal ideations. There is no observed behavior that suggests patient is responding to internal stimuli. Patient engaged in organized, and linear thought processes and was able to express needs and wants in a logical manner. Patient expressed that she became overwhelmed with returning home. Patient continued as she expressed excitement regarding having access to her lotion. There is no behavior to suggest patient is an immediate harm to self or others. [facility] have been contacted and are aware of patient's needs and will follow up. Clinician filed an APS report. Plan is for patient to follow up with her mental health provider, [facility]. Dr. Flores was consulted on the care and management of this patient; attending physician is in agreement with recommendations and disposition.
== END 2019-10-27 16:14 | disposition home or self-care (01) ==
LOC: ER 19:04
DX: F25.0 Schizoaffective disorder, bipolar type (principal); F30.8 Other manic episodes; G89.4 Chronic pain syndrome; M50.30 Other cervical disc degeneration, unspecified cervical region; Z79.899 Other long term (current) drug therapy; F17.200 Nicotine dependence, unspecified, uncomplicated; I10 Essential (primary) hypertension; E11.9 Type 2 diabetes mellitus without complications
CPT/HCPCS: 93005; 99285; 36415; 80307 ×4; 85025; 80053; 81001; 93010; A9270

== ENCOUNTER 2019-11-13 19:07 | Emergency (ER) | payer MEDICARE, MEDICAID ==
[2019-11-13 20:13] LABS: ABSOLUTE EOSINOPHILS # (AUTO) 0.4 10^3/uL (0.0-0.6); ABSOLUTE LYMPHOCYTES (AUTO) 1.4 10^3/uL (0.5-4.7); ABSOLUTE MONOCYTES (AUTO) 0.3 10^3/uL (0.1-1.4); ABSOLUTE NEUT (AUTO) 3.6 10^3/uL (1.7-8.2); BASOPHILS % (AUTO) 0.3 % (0-2); EOSINOPHILS % (AUTO) 6.7 % (0-6); HEMOGLOBIN 14.1 g/dL (12.0-15.5); LYMPHOCYTES % (AUTO) 24.8 % (13-45); MEAN CORPUSCULAR HEMOGLOBIN 30.9 pg (27.0-33.4); MEAN CORPUSCULAR HGB CONC 34.4 g/dL (32.0-36.0); MEAN CORPUSCULAR VOLUME 90 fl (80-97); MONOCYTES % (AUTO) 5.5 % (3-13); PLATELET COUNT 315 10^3/uL (150-450); RED BLOOD COUNT 4.56 10^6/uL (3.72-5.28); RED CELL DISTRIBUTION WIDTH 14.3 % (11.5-14.0); SEGMENTED NEUTROPHILS % (AUTO) 62.7 % (42-78); TOTAL CELLS COUNTED % (AUTO) 100 %; WHITE BLOOD COUNT 5.7 10^3/uL (4.0-10.5)
[2019-11-13 20:22] LABS: ALBUMIN 4.1 g/dL (3.5-5.0); ALKALINE PHOSPHATASE 88 U/L (38-126); ANION GAP 11 (5-19); ASPARTATE AMINO TRANSFERASE 27 U/L (14-36); BILIRUBIN,DIRECT 0.3 mg/dL (0.0-0.4); BILIRUBIN,TOTAL 0.4 mg/dL (0.2-1.3); BLOOD UREA NITROGEN 16 mg/dL (7-20); CALCIUM 9.4 mg/dL (8.4-10.2); CARBON DIOXIDE 32 mmol/L (22-30); CHLORIDE 96 mmol/L (98-107); GLUCOSE 143 mg/dL (75-110); POTASSIUM 3.7 mmol/L (3.6-5.0); TOTAL PROTEIN 7.4 g/dL (6.3-8.2)
[2019-11-13 20:23] LABS: ALCOHOL < 10 mg/dL (NONE DETECTED)
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
[2019-11-13 23:29] LABS: APPEARANCE,URINE CLEAR; BILIRUBIN,URINE NEGATIVE (NEGATIVE); COLOR,URINE YELLOW; GLUCOSE, URINE NEGATIVE (NEGATIVE); KETONES,URINE NEGATIVE (NEGATIVE); LEUKOCYTE ESTERASE,URINE NEGATIVE (NEGATIVE); NITRITE,URINE NEGATIVE (NEGATIVE); PROTEIN,URINE NEGATIVE (NEGATIVE); URINE SPECIFIC GRAVITY 1.009; UROBILINOGEN,URINE NEGATIVE mg/dL (<2.0)
--- NOTE | 2019-11-13 23:43 | RADIOLOGY REPORT (SQ) ---
CT HEAD WITHOUT IV CONTRAST EXAM DATE: 11/13/2019 10:10 PM ALCOHOL STILL OPERATOR HISTORY: Head injury. COMPARISON: 10/16/2019 TECHNIQUE: CT scan of the brain without IV contrast. This exam was performed according to our departmental dose-optimization program, which includes automated exposure control, adjustment of the mA and/or kV according to patient size and/or use of iterative reconstruction technique. FINDINGS: The ventricles, cisterns, and sulci are age-appropriate. No evidence of acute infarction, intracranial hemorrhage, extra-axial fluid collection, or midline shift. No air-fluid levels are seen in the paranasal sinuses to suggest acute sinusitis. No depressed skull fracture. IMPRESSION: No acute intracranial findings.
[2019-11-13 23:44] LABS: URINE AMPHETAMINES SCREEN NEGATIVE; URINE BARBITURATES SCREEN NEGATIVE; URINE COCAINE SCREEN NEGATIVE; URINE MARIJUANA (THC) SCREEN NEGATIVE; URINE METHADONE SCREEN NEGATIVE; URINE PHENCYCLIDINE SCREEN NEGATIVE
[2019-11-13 23:47] LABS: URINE BENZODIAZEPINES SCREEN UNCONFIRMED POSITIVE
--- NOTE | 2019-11-13 23:49 | RADIOLOGY REPORT (SQ) ---
XR CHEST 1 VIEW EXAM DATE: 11/13/2019 10:10 PM STRATEGY LEAD HISTORY: Seizure. COMPARISON: 06/01/2019 FINDINGS: Normal heart size without pulmonary edema. No focal consolidation is identified. No pleural effusions or pneumothorax. No acute bony findings are seen. IMPRESSION: No evidence of acute cardiopulmonary disease.
[2019-11-14 05:17] VITALS: BP 130/72
== END 2019-11-14 05:18 | disposition home or self-care (01) ==
LOC: ER 19:07
DX: F31.9 Bipolar disorder, unspecified (principal); F25.8 Other schizoaffective disorders; R25.1 Tremor, unspecified; R56.9 Unspecified convulsions; Z88.8 Allergy status to other drugs, medicaments and biological substances; Z79.899 Other long term (current) drug therapy; F17.200 Nicotine dependence, unspecified, uncomplicated; I10 Essential (primary) hypertension; E11.9 Type 2 diabetes mellitus without complications
CPT/HCPCS: 36415; 70450; 71045; 80053; 80307; 81001; 82962; 83735; 85025; 99285

== ENCOUNTER 2019-12-17 01:00 | Inpatient (IN) | payer MEDICARE, OTHER ==
[2019-12-17 01:42] LABS: ABSOLUTE LYMPHOCYTES (AUTO) 0.8 10^3/uL (0.5-4.7); ABSOLUTE MONOCYTES (AUTO) 0.1 10^3/uL (0.1-1.4); ABSOLUTE NEUT (AUTO) 8.6 10^3/uL (1.7-8.2); BASOPHILS % (AUTO) 0.1 % (0-2); EOSINOPHILS % (AUTO) 0.1 % (0-6); HEMATOCRIT 34.3 % (36.0-47.0); HEMOGLOBIN 12.3 g/dL (12.0-15.5); LYMPHOCYTES % (AUTO) 8.5 % (13-45); MEAN CORPUSCULAR HEMOGLOBIN 31.9 pg (27.0-33.4); MEAN CORPUSCULAR HGB CONC 35.8 g/dL (32.0-36.0); MEAN CORPUSCULAR VOLUME 89 fl (80-97); MONOCYTES % (AUTO) 1.4 % (3-13); PLATELET COUNT 368 10^3/uL (150-450); RED BLOOD COUNT 3.85 10^6/uL (3.72-5.28); RED CELL DISTRIBUTION WIDTH 13.7 % (11.5-14.0); SEGMENTED NEUTROPHILS % (AUTO) 89.9 % (42-78); TOTAL CELLS COUNTED % (AUTO) 100 %; WHITE BLOOD COUNT 9.6 10^3/uL (4.0-10.5)
[2019-12-17 01:46] LABS: APPEARANCE,URINE SLIGHTLY-CLOUDY; BILIRUBIN,URINE NEGATIVE (NEGATIVE); COLOR,URINE YELLOW; GLUCOSE, URINE NEGATIVE (NEGATIVE); KETONES,URINE TRACE mg/dL (NEGATIVE); LEUKOCYTE ESTERASE,URINE NEGATIVE (NEGATIVE); NITRITE,URINE NEGATIVE (NEGATIVE); PROTEIN,URINE 30 mg/dL (NEGATIVE); URINE SPECIFIC GRAVITY 1.024
[2019-12-17 01:56] LABS: ALBUMIN 3.9 g/dL (3.5-5.0); ALKALINE PHOSPHATASE 80 U/L (38-126); ANION GAP 12 (5-19); ASPARTATE AMINO TRANSFERASE 26 U/L (14-36); BILIRUBIN,TOTAL 0.4 mg/dL (0.2-1.3); BLOOD UREA NITROGEN 16 mg/dL (7-20); CALCIUM 9.1 mg/dL (8.4-10.2); CARBON DIOXIDE 26 mmol/L (22-30); CHLORIDE 92 mmol/L (98-107); GLUCOSE 180 mg/dL (75-110); POTASSIUM 4.5 mmol/L (3.6-5.0); TOTAL PROTEIN 6.7 g/dL (6.3-8.2)
[2019-12-17 01:57] LABS: ACETAMINOPHEN < 10 ug/mL (10-30); ALCOHOL < 10 mg/dL (NONE DETECTED); SALICYLATE < 1.0 mg/dL (2.0-20.0)
[2019-12-17 02:03] LABS: URINE AMPHETAMINES SCREEN NEGATIVE; URINE BARBITURATES SCREEN NEGATIVE; URINE BENZODIAZEPINES SCREEN NEGATIVE; URINE COCAINE SCREEN NEGATIVE; URINE MARIJUANA (THC) SCREEN NEGATIVE; URINE METHADONE SCREEN NEGATIVE
[2019-12-17 02:05] LABS: URINE PHENCYCLIDINE SCREEN UNCONFIRMED POSITIVE
[2019-12-17] MEDS ORDERED: NALOXONE HCL INJ/PF 0.4 MG/1 ML SDV IV ONE (02:14)
[2019-12-17] MEDS ORDERED: NALOXONE HCL INJ/PF 0.4 MG/1 ML SDV ONE (02:15)
[2019-12-17] MEDS ORDERED: NALOXONE HCL INJ 2 MG/2 ML DISP.SYRIN IV ONE (02:21)
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
--- NOTE | 2019-12-17 03:12 | RADIOLOGY REPORT (SQ) ---
EXAM DESCRIPTION: CT HEAD WITHOUT IV CONTRAST COMPLETED DATE/TME: 12/17/2019 01:54 CLINICAL HISTORY: 64 years, Female, fall, AMS COMPARISON: 11/13/2019 TECHNIQUE: Serial CT images of the brain were obtained without contrast. Sagittal and coronal reformats were performed. DL 1043 Images stored on PACS. All CT scanners at this facility use dose modulation, iterative reconstruction, and/or weight based dosing when appropriate to reduce radiation dose to as low as reasonably achievable (ALARA). [facility]: Dose Right [facility]: CareDose [facility]: Dose Right [facility]: Teradose 4D [facility]: Smart uromovie LIMITATIONS: None. FINDINGS: There is mild soft tissue swelling along the forehead. There is no acute cortical infarct, hemorrhage, mass, edema, hydrocephalus, or extra-axial fluid collection. The ugarte-white matter differentiation is preserved. The paranasal sinuses and mastoid air cells are clear. There is no acute fracture. IMPRESSION: No acute intracranial abnormality. TECHNICAL DOCUMENTATION: Quality ID # 436: Final reports with documentation of one or more dose reduction techniques (e.g., Automated exposure control, adjustment of the mA and/or kV according to patient size, use of iterative reconstruction technique) copyright 2011 [employer]- All Rights Reserved
--- NOTE | 2019-12-17 03:15 | RADIOLOGY REPORT (SQ) ---
EXAM DESCRIPTION: CT CERVICAL SPINE WITHOUT IV CONTRAST COMPLETED DATE/TME: 12/17/2019 01:54 CLINICAL HISTORY: 64 years, Female, fall, AMS COMPARISON: 10/16/2019 TECHNIQUE: Axial CT images of the cervical spine were obtained without contrast. Sagittal and coronal reformats were performed. DLP 457 Images stored on PACS. All CT scanners at this facility use dose modulation, iterative reconstruction, and/or weight based dosing when appropriate to reduce radiation dose to as low as reasonably achievable (ALARA). [facility]: Dose Right [facility]: CareDose [facility]: Dose Right [facility]: Teradose 4D [facility]: LOAG LIMITATIONS: None. FINDINGS: The alignment of the cervical spine is satisfactory. There is no acute fracture or subluxation. The vertebral heights are maintained. The prevertebral soft tissues are normal. The odontoid process is intact. The craniocervical junction is intact. There is multilevel spondylosis, worst at C4-C5 with disc space narrowing, endplate sclerosis and marginal osteophytes. There is severe right-sided neural foraminal narrowing at C4-C5 and C5-C6. There is moderate left-sided neural foraminal narrowing at C4-C5. IMPRESSION: No acute fracture or subluxation. TECHNICAL DOCUMENTATION: Quality ID # 436: Final reports with documentation of one or more dose reduction techniques (e.g., Automated exposure control, adjustment of the mA and/or kV according to patient size, use of iterative reconstruction technique) copyright 2010 [employer]- All Rights Reserved
--- NOTE | 2019-12-17 03:23 | RADIOLOGY REPORT (SQ) ---
EXAM DESCRIPTION: XR CHEST 1 VIEW COMPLETED DATE/TME: 12/17/2019 02:14 CLINICAL HISTORY: 64 years Female, unresponsive COMPARISON: 11/13/19, 06/01/19, 04/29/19 NUMBER OF VIEWS/TECHNIQUE: 1/AP FINDINGS: Clear lung rock. Normal cardiac silhouette size. No pneumothorax. Mild scoliotic curvature. IMPRESSION: No significant change.
[2019-12-17] MEDS ORDERED: MIDAZOLAM HCL 50 MG/100 ML RTUINJ IV PRN (03:33)
[2019-12-17] MEDS ORDERED: RINGERS SOLUTION,LACTATED 1,000 ML IV ONE (03:39)
[2019-12-17] MEDS ORDERED: ETOMIDATE INJ/PF 20 MG/10 ML SDV IV ONE (03:40)
[2019-12-17] MEDS ORDERED: SUCCINYLCHOLINE CHLORIDE INJ 200 MG/10 ML VIAL IV ONE (03:40)
--- NOTE | 2019-12-17 04:25 | RADIOLOGY REPORT (SQ) ---
Chest one view on 12/17/2019 3:56 AM CLINICAL INDICATION: Intubated COMPARISON: 12/17/2019 at 2:50 AM FINDINGS: New ET tube tip is in the lower thoracic trachea approximately 1.9 cm above the level of the jeremy. Consider retraction of the ET tube by 2 cm for more optimal positioning. New NG tube extends into the stomach and below the level of this film. The lungs are clear. Cardiac, hilar and mediastinal contours are within normal limits. Pulmonary vascularity is within normal limits. Mild scoliosis is noted in the spine. IMPRESSION: ET tube tip in the lower thoracic trachea as above consider retraction.
[2019-12-17] MEDS ORDERED: RINGERS SOLUTION,LACTATED 1,000 ML IV PRN (06:03)
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
[2019-12-17 07:46] LABS: HEMATOCRIT 35.5 % (36.0-47.0); HEMOGLOBIN 12.8 g/dL (12.0-15.5); MEAN CORPUSCULAR HEMOGLOBIN 31.8 pg (27.0-33.4); MEAN CORPUSCULAR HGB CONC 36.1 g/dL (32.0-36.0); MEAN CORPUSCULAR VOLUME 88 fl (80-97); PLATELET COUNT 359 10^3/uL (150-450); RED BLOOD COUNT 4.03 10^6/uL (3.72-5.28); RED CELL DISTRIBUTION WIDTH 13.6 % (11.5-14.0); WHITE BLOOD COUNT 12.4 10^3/uL (4.0-10.5)
[2019-12-17 08:03] LABS: ANION GAP 10 (5-19); BLOOD UREA NITROGEN 15 mg/dL (7-20); CALCIUM 9.2 mg/dL (8.4-10.2); CARBON DIOXIDE 27 mmol/L (22-30); CHLORIDE 96 mmol/L (98-107); GLUCOSE 186 mg/dL (75-110); POTASSIUM 4.4 mmol/L (3.6-5.0)
[2019-12-17 09:08] LABS: ARTERIAL BLOOD BASE EXCESS 3.2 mmol/L; ARTERIAL BLOOD H2CO3 1.37 mmol/L (1.05-1.35); ARTERIAL BLOOD HCO3 28.4 mmol/L (20-24); ARTERIAL BLOOD PCO2 45.6 mmHg (35-45); ARTERIAL BLOOD PH 7.41 (7.35-7.45); ARTERIAL BLOOD PO2 65.5 mmHg (80-100); ARTERIAL BLOOD TOTAL CO2 29.8 mmol/L (21-25)
[2019-12-17 09:09] LABS: ARTERIAL BLOOD FIO2 30%
[2019-12-17] MEDS ORDERED: FAMOTIDINE INJ/PF 20 MG/2 ML SDV IV SCH (10:00)
[2019-12-17] MEDS ORDERED: DEXMEDETOMIDINE IN 0.9 % NACL 400 MCG/100 ML RTUPB IV PRN (10:09)
[2019-12-17] MEDS ORDERED: SUCCINYLCHOLINE CHLORIDE INJ 200 MG/10 ML VIAL ONE (10:41)
[2019-12-17] MEDS ORDERED: INFLUENZA QUAD (6MOS+) 2019-20 VAC 0.5 ML SYR IM ONE (13:04)
[2019-12-17] MEDS ORDERED: HEPARIN SOD (PORCINE) 5,000 UNIT/ML 1 ML VIAL SUBCUT SCH (14:00)
[2019-12-17] MEDS ORDERED: PROPOFOL 1,000 MG/100 ML INFUS..BTL IV ONE (17:12)
[2019-12-17] MEDS ORDERED: PROPOFOL 1,000 MG/100 ML INFUS..BTL IV PRN (17:12)
[2019-12-17] MEDS ORDERED: PHARMACY COMMUNICATION ORDER MC NR (17:15)
--- NOTE | 2019-12-17 18:05 | Progress Note ---
Provider Note Provider Note: Date of service: 12/17/2019 I personally examined the patient and evaluated her after admission from the emergency room. Reviewed the case and care provided by DEJAH Arnett. Agree with his findings his plan and his care. Patient seen on multidisciplinary rounds and ABCD EF protocol bundle was carried out in accordance with critical care standards. On examination her lungs were clear, her chest x-ray did not show any evidence of aspiration. Eventually awoke and and non-labile throughout the day. He is steadily awakening from her comatose state and is now following commands. On repeat examination, her blood pressure was 80/40 and she was given repeat bolus of IV fluids. Sedation has been held (Dexmetomidate) Was able to lift her head off the bed follow commands and had adequate urine output. She was liberated from the ventilator without difficulty. Follow-up on respiratory status will be made throughout the evening. Total critical care time 50 minutes
--- NOTE | 2019-12-17 18:18 | EKG REPORT ---
SEVERITY:- NORMAL ECG - SINUS RHYTHM : Confirmed by: Norris Hooker 17-Dec-2019 18:16:36
[2019-12-17 19:51] VITALS: BP 118/54
== END 2019-12-17 20:15 | disposition left against medical advice (07) | DRG 917 ==
LOC: ER 01:00 → EH 04:03 → ICU 05:55
PROVIDERS: ADMIT Anesthesiology; ATTEND Anesthesiology
PROC: 0BH17EZ Insertion of Endotracheal Airway into Trachea, Via Natural or Artificial Opening (ICD-10-PCS; principal; 2019-12-17)
PROC: 5A1935Z Respiratory Ventilation, Less than 24 Consecutive Hours (ICD-10-PCS; 2019-12-17)
DX: T40.601A Poisoning by unspecified narcotics, accidental (unintentional), initial encounter (principal); J96.01 Acute respiratory failure with hypoxia; E87.1 Hypo-osmolality and hyponatremia; R40.2432 Glasgow coma scale score 3-8, at arrival to emergency department; Y92.009 Unspecified place in unspecified non-institutional (private) residence as the place of occurrence of the external cause; S01.81XA Laceration without foreign body of other part of head, initial encounter; W19.XXXA Unspecified fall, initial encounter; I10 Essential (primary) hypertension; E78.00 Pure hypercholesterolemia, unspecified; E11.9 Type 2 diabetes mellitus without complications; M19.90 Unspecified osteoarthritis, unspecified site; F31.9 Bipolar disorder, unspecified; K21.9 Gastro-esophageal reflux disease without esophagitis; F17.200 Nicotine dependence, unspecified, uncomplicated; F43.10 Post-traumatic stress disorder, unspecified; Y93.9 Activity, unspecified; Y92.000 Kitchen of unspecified non-institutional (private) residence as the place of occurrence of the external cause; Z78.1 Physical restraint status; Z91.410 Personal history of adult physical and sexual abuse; Z90.49 Acquired absence of other specified parts of digestive tract; Z90.710 Acquired absence of both cervix and uterus; Z79.899 Other long term (current) drug therapy
CPT/HCPCS: 36415; 51701; 51702; 70450; 71045; 72125; 80053; 80307; 81001; 82140; 82803; 83930; 83935; 84133; 84300; 84478; 85025; 93005; 93010; 94002; 99291; 99292; J0330; J1644; J2250; J2310; J3490; J7120; S0028

== ENCOUNTER 2019-12-23 08:01 | Day surgery (SDC) | payer MEDICARE, OTHER ==
[~2019-12-23 08:01] MED LIST changes: -BUPIVACAINE HCL 0.5 % INJ/PF 30 ML SDV ONE; -CEFAZOLIN SODIUM 2 GM in NORMAL SALINE 100 ML IV PRN; -EPINEPHRINE INJ/PF 1 MG/1 ML AMPULE ONE; +LIDOCAINE 2% INJ-PF (20 MG/ML) 10 ML AMPUL ONE; +PROPOFOL INJ 200 MG/20 ML VIAL IV ONE
--- NOTE | 2019-12-23 09:18 | Operative Report ---
Operative Report DATE OF SURGERY: 12/23/19 Operative Report: The risk, benefits and alternatives of the procedure including the risk of bleeding, perforation requiring surgery have been explained to the patient in detail and informed consent has been obtained. Patient was placed in left, lateral decubital position. Timeout was called. Propofol medication is administered. Rectal examination is done which did not reveal any masses, tears or fissures. An Olympus upper scope was introduced into the patient's rectum. Scope was then carefully advanced all the way to the cecum. Cecum was identified by the usual anatomical landmarks including the ileocecal valve as well as the appendiceal office. Photodocumentation is obtained. Scope was then sequentially pulled back via the various segments of the colon including the ascending colon, back flexure, transverse colon, splenic flexure, descending colon and finally into the rectosigmoid portions of the colon. Retroflexion maneuvers performed. Patient has a redundant colon. Prep is not ideal. The risks benefits and alternatives of the procedure explained to the patient in detail and informed consent is obtained.A GIF Olympus video scope was inserted into the patient's mouth and hypopharynx, the esophagus is identified intubated and insufflated ,the scope was then advanced through the esophagus stomach and duodenum, retroflexion maneuver is done, the esophagus stomach and first and second portions of the duodenum examined PREOPERATIVE DIAGNOSIS: Epigastric pain. Personal history of multiple polyps; question possible polyposis syndrome. Patient's clinical status is classified as urgent for procedure to be performed. POSTOPERATIVE DIAGNOSIS: Esophagitis, gastritis and esophagitis. However no ulcers are noted. Biopsies obtained. Right side colon biopsies obtained. Severe diverticulosis. Internal hemorrhoids. Possible melanosis coli. Right colon inflammation status post biopsy. Redundant colon OPERATION: Colonoscopy with biopsy. EGD with biopsy SURGEON: APOORVA ROBLEDO ANESTHESIA: LMAC TISSUE REMOVED OR ALTERED: As noted above. COMPLICATIONS: None. ESTIMATED BLOOD LOSS: None. INTRAOPERATIVE FINDINGS: As noted above. PROCEDURE: Patient tolerated the procedure well. No immediate postprocedure complications are noted. Patient is discharged in good condition. Discharge date 12/23/2019. Discharge diet: Regular. Discharge activity: Regular. 2 to 3-week follow-up to discuss findings. Patient is instructed to call the office or proceed to the emergency room should there be any further problems or questions. Wait on pathology.
[2019-12-23 09:48] VITALS: BP 134/74
== END 2019-12-23 09:49 | disposition home or self-care (01) ==
LOC: END 08:01
PROVIDERS: ATTEND Internal Medicine Gastroenterology
DX: Z12.11 Encounter for screening for malignant neoplasm of colon (principal); K57.30 Diverticulosis of large intestine without perforation or abscess without bleeding; K52.9 Noninfective gastroenteritis and colitis, unspecified; Z86.010 Personal history of colon polyps; K29.50 Unspecified chronic gastritis without bleeding; Z79.899 Other long term (current) drug therapy; J44.9 Chronic obstructive pulmonary disease, unspecified; I10 Essential (primary) hypertension; F17.210 Nicotine dependence, cigarettes, uncomplicated; K21.9 Gastro-esophageal reflux disease without esophagitis; D63.8 Anemia in other chronic diseases classified elsewhere; E78.5 Hyperlipidemia, unspecified; E11.9 Type 2 diabetes mellitus without complications; Z86.73 Personal history of transient ischemic attack (TIA), and cerebral infarction without residual deficits
CPT/HCPCS: 43239; 45380; 88342 ×2; 88305 ×2; J2704; J3490; 813